=== PATIENT | male | born 1980 | race Caucasian/White ===

== ENCOUNTER 2017-05-15 05:20 | Inpatient (IN) | payer MEDICAID ==
[2017-05-15] MEDS ORDERED: Lactated Ringers 1,000 ML IV SCH (05:30)
[2017-05-15] MEDS ORDERED: Acetaminophen 500 MG Tab PO ONE (05:30)
[2017-05-15] MEDS ORDERED: Gabapentin 300 MG Cap PO ONE (05:30)
[2017-05-15] MEDS ORDERED: Clindamycin Phosphate 900 MG in Sodium Chloride 0.9% 100 ML IV ONE (06:00)
[2017-05-15] MEDS: Scopolamine 1.5 MG Transdermal Patch TOP SCH (06:09)
[2017-05-15] MEDS ORDERED: Thrombin (Bovine) 5,000 Unit Kit ONE (06:33)
[2017-05-15] MEDS ORDERED: Povidone-Iodine 10% Soln 118.25 ML Bottle ONE (06:33)
[2017-05-15] MEDS ORDERED: Dexamethasone 4 MG/ML SDV ONE (07:04)
[2017-05-15] MEDS ORDERED: Propofol 200 MG/20 ML SDV ONE ×3 (07:04→08:33)
[2017-05-15] MEDS ORDERED: Succinylcholine/Normal Saline 200 MG/10 ML Syringe ONE (07:04)
[2017-05-15] MEDS ORDERED: Neostigmine Methylsulfate 1 MG/ML 5 ML Syringe ONE (07:04)
[2017-05-15] MEDS ORDERED: Rocuronium 50 MG/5 ML Vial ONE (07:04)
[2017-05-15] MEDS ORDERED: Ondansetron 4 MG/2 ML SDV ONE (07:04)
[2017-05-15] MEDS ORDERED: Naloxone 0.4 MG/ML SDV IVPUSH PRN (07:29)
[2017-05-15] MEDS ORDERED: Ketamine 500 MG/5 ML MDV IV ONE (07:35)
[2017-05-15] MEDS: HYDROmorphone/Normal Saline 15 MG/30 ML PCA IV PRN (07:42)
[2017-05-15] MEDS ORDERED: fentaNYL 250 MCG/5 ML SDV ONE ×4 (07:46→08:40)
[2017-05-15] MEDS: SODIUM CHLORIDE 0.9% IV SCH ×2 (08:00→10:15)
[2017-05-15] MEDS: TRANEXAMIC ACID IV SCH ×2 (08:00→10:15)
[2017-05-15] MEDS ORDERED: Lactated Ringers 1,000 ML ONE (08:38)
[2017-05-15] MEDS ORDERED: Linezolid 200 MG/100 ML Bag IRR ONE (09:00)
[2017-05-15] MEDS ORDERED: Labetalol 20 MG/4 ML Syringe ONE (09:14)
[2017-05-15] MEDS ORDERED: fentaNYL 100 MCG/2 ML SDV ONE (09:44)
[2017-05-15] MEDS ORDERED: hydrOXYzine HCl 100 MG/2 ML SDV IM PRN (12:31)
[2017-05-15] MEDS: VERIFY SCOP PATCH TOP SCH (13:34)
[2017-05-15] MEDS ORDERED: Gabapentin 300 MG Cap PO SCH (14:00)
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
[2017-05-15] MEDS: Clindamycin Phosphate 900 MG in Sodium Chloride 0.9% 100 ML IV SCH ×2 (15:40→23:50)
[2017-05-15] MEDS: Pantoprazole 40 MG Vial IV SCH (15:41)
[2017-05-15] MEDS: Acetaminophen 500 MG Tab PO SCH ×2 (15:41→19:55)
[2017-05-15] MEDS: Dextrose 5%-Lactated Ringers 1,000 ML IV SCH ×2 (18:12→23:49)
[2017-05-15] MEDS: Nicotine 21 MG/24 Hr Patch TRDERM SCH (19:13)
[2017-05-15] MEDS: Cyclobenzaprine 10 MG Tab PO PRN (22:32)
[2017-05-15] MEDS ORDERED: Topiramate 25 MG Tab ONE ×2 (22:57→23:03)
[2017-05-15] MEDS: Topiramate 100 MG Tab PO SCH (23:00)
[2017-05-16] MEDS: Acetaminophen 500 MG Tab PO SCH ×3 (02:22→13:46)
[2017-05-16] MEDS: HYDROmorphone/Normal Saline 15 MG/30 ML PCA IV PRN (03:48)
[2017-05-16] MEDS: Dextrose 5%-Lactated Ringers 1,000 ML IV SCH ×2 (06:07→15:04)
[2017-05-16] MEDS: Clindamycin Phosphate 900 MG in Sodium Chloride 0.9% 100 ML IV SCH (07:25)
--- NOTE | 2017-05-16 07:59 | PCM.SURGPN ---
- General Info Date of Service: 05/16/17 Date of Surgery/Procedure: 05/15/17 POD#: 1 Post-Op Diagnosis: S/p anterior lumbar interbody fusion Admission Diagnosis/Problem: Spinal stenosis Functional Status: Reports: Pain Controlled Pain Score: 5 - Review of Systems General: Reports: No Symptoms HEENT: Reports: No Symptoms Pulmonary: Reports: No Symptoms Cardiovascular: Reports: No Symptoms Gastrointestinal: Reports: No Symptoms Genitourinary: Reports: No Symptoms Musculoskeletal: Reports: Back Pain Skin: Reports: No Symptoms Neurological: Reports: Other (tingling/burning/shooting pain down both legs ) - Patient Data Vitals - Most Recent: Last Vital Signs Temp 36.4 C 05/16/17 07:13 Pulse 88 05/16/17 07:13 Resp 18 05/16/17 07:13 BP 105/57 L 05/16/17 07:13 Pulse Ox 95 05/16/17 07:13 Weight - Most Recent: 90.718 kg I&O - Last 24 Hours: Intake & Output 05/15/17 05/16/17 05/16/17 22:59 06:59 14:59 Intake Total 273 2709 106 Output Total 1053 1005 Balance -780 1704 106 Lab Results Last 24 Hrs: Laboratory Results - last 24 hr 05/16/17 05/16/17 Range/Units 04:30 04:30 WBC 14.2 H (4.5-11.0) K/uL RBC 4.05 L (4.30-5.90) M/uL Hgb 12.1 D (12.0-15.0) g/dL Hct 36.8 L (40.0-54.0) % MCV 91 (80-98) fL MCH 30 (27-31) pg MCHC 33 (32-36) % Plt Count 169 (150-400) K/uL Sodium 140 (140-148) mmol/L Potassium 4.1 (3.6-5.2) mmol/L Chloride 106 (100-108) mmol/L Carbon Dioxide 26 (21-32) mmol/L Anion Gap 8.5 (5.0-14.0) mmol/L BUN 11 (7-18) mg/dL Creatinine 1.0 (0.8-1.3) mg/dL Est Cr Clr Drug Dosing 104.43 mL/min Estimated GFR (MDRD) > 60 (>60) Glucose 131 H (74-106) mg/dL Calcium 8.9 (8.5-10.1) mg/dL Phosphorus 2.7 (2.5-4.9) mg/dL Magnesium 1.9 (1.8-2.4) mg/dL Med Orders - Current: Current Medications Acetaminophen (Tylenol Extra Strength) 1,000 mg PO Q6H [facility] Last Admin: 05/16/17 02:22 Dose: 1,000 mg Bisacodyl (Dulcolax) 20 mg PO BID [facility] Cyclobenzaprine HCl (Flexeril) 10 mg PO Q6H PRN PRN Reason: MUSCLE SPASM Last Admin: 05/15/17 22:32 Dose: 10 mg Enoxaparin Sodium (Lovenox) 40 mg SUBCUT DAILY [facility] Hydromorphone HCl (Dilaudid) 2 - 4 mg PO Q4H PRN PRN Reason: Pain Hydroxyzine HCl (Vistaril) 100 mg IM Q4H PRN PRN Reason: PAIN Hydroxyzine HCl (Atarax) 100 mg PO Q4H PRN PRN Reason: PAIN Clindamycin Phosphate 900 mg/ (Sodium Chloride) 106 mls @ 212 mls/hr IV Q8H [facility] Stop: 05/16/17 08:29 Last Admin: 05/16/17 07:25 Dose: 212 mls/hr Dextrose/Lactated Ringer's (Dextrose 5%-Lactated Ringers) 1,000 mls @ 100 mls/ hr IV ASDIRECTED [facility] Nicotine (Habitrol) 21 mg TRDERM DAILY [facility] Last Admin: 05/15/17 19:13 Dose: 21 mg Verify Scop Patch 0 each TOP DAILY [facility] Last Admin: 05/15/17 13:34 Dose: Not Given Ondansetron HCl (Zofran) 4 mg IV Q4H PRN PRN Reason: N/V Pantoprazole Sodium (Protonix Iv) 40 mg IV Q24H [facility] Last Admin: 05/15/17 15:41 Dose: 40 mg Scopolamine (Transderm-Scop) 1.5 mg TOP Q72H [facility] Last Admin: 05/15/17 06:09 Dose: 1.5 mg Senna/Docusate Sodium (Senna Plus) 2 tab PO BID [facility] Topiramate (Topamax) 100 mg PO BID [facility] Last Admin: 05/15/17 23:00 Dose: 100 mg Discontinued Medications Acetaminophen (Tylenol Extra Strength) 1,000 mg PO ONETIME ONE Stop: 05/15/17 05:31 Last Admin: 05/15/17 06:09 Dose: 1,000 mg Dexamethasone (Dexamethasone) Confirm Administered Dose 4 mg .ROUTE .STK-MED ONE Stop: 05/15/17 07:05 Fentanyl (Sublimaze) Confirm Administered Dose 250 mcg .ROUTE .STK-MED ONE Stop: 05/15/17 07:47 Fentanyl (Sublimaze) Confirm Administered Dose 250 mcg .ROUTE .STK-MED ONE Stop: 05/15/17 07:50 Fentanyl (Sublimaze) Confirm Administered Dose 250 mcg .ROUTE .STK-MED ONE Stop: 05/15/17 08:11 Fentanyl (Sublimaze) Confirm Administered Dose 250 mcg .ROUTE .STK-MED ONE Stop: 05/15/17 08:41 Fentanyl (Sublimaze) Confirm Administered Dose 100 mcg .ROUTE .STK-MED ONE Stop: 05/15/17 09:45 Gabapentin (Neurontin) 300 mg PO ONETIME ONE Stop: 05/15/17 05:31 Last Admin: 05/15/17 06:09 Dose: 300 mg Gabapentin (Neurontin) 300 mg PO TID [facility] Last Admin: 05/15/17 16:09 Dose: Not Given Glycopyrrolate () Confirm Administered Dose 1 mg .ROUTE .STK-MED ONE Stop: 05/15/17 07:05 Hydromorphone HCl (Dilaudid Filter Worker 15 Mg In Ns 30 Ml) 0 mg IV ASDIRECTED PRN; Protocol PRN Reason: Pain Last Admin: 05/16/17 03:48 Dose: 15 mg Clindamycin Phosphate 900 mg/ (Sodium Chloride) 106 mls @ 212 mls/hr IV ONETIME ONE Stop: 05/15/17 06:29 Last Admin: 05/15/17 08:00 Dose: 212 mls/hr Lactated Ringer's (Ringers, Lactated) 1,000 mls @ 0 mls/hr IV ASDIRECTED [facility] PRN Reason: KVO Last Admin: 05/15/17 06:11 Dose: 25 mls/hr Tranexamic Acid 930 mg/ Sodium (Chloride) 59.3 mls @ 237.2 mls/hr IV Q3H [facility] Stop: 05/15/17 10:49 Last Admin: 05/15/17 10:15 Dose: 237.2 mls/hr Ketamine HCl 100 mg/ Sodium (Chloride) 100 mls @ 21.93 mls/hr IV ASDIRECTED [facility] PRN Reason: 5 MCG/KG/MIN Stop: 05/15/17 09:35 Linezolid (Zyvox) Confirm Administered Dose 100 mls @ as directed .ROUTE .STK- MED ONE Stop: 05/15/17 06:34 Lactated Ringer's (Ringers, Lactated) Confirm Administered Dose 1,000 mls @ as directed .ROUTE .STK-MED ONE Stop: 05/15/17 08:39 Dextrose/Lactated Ringer's (Dextrose 5%-Lactated Ringers) 1,000 mls @ 175 mls/ hr IV ASDIRECTED [facility] Last Admin: 05/16/17 06:07 Dose: 175 mls/hr Ketamine HCl (Ketalar) 36 mg IV ONETIME ONE Stop: 05/15/17 07:36 Last Admin: 05/15/17 13:34 Dose: Not Given Labetalol HCl (Normodyne) Confirm Administered Dose 20 mg .ROUTE .STK-MED ONE Stop: 05/15/17 09:15 Linezolid (Zyvox) 200 mg IRR .STK-MED ONE Stop: 05/15/17 09:01 Last Admin: 05/15/17 09:00 Dose: 200 mg Naloxone HCl (Narcan) 0.1 mg IVPUSH Q5M PRN PRN Reason: Respiratory Distress Neostigmine Methylsulfate (Neostigmine) Confirm Administered Dose 5 mg .ROUTE .STK-MED ONE Stop: 05/15/17 07:05 Ondansetron HCl (Zofran) Confirm Administered Dose 4 mg .ROUTE .STK-MED ONE Stop: 05/15/17 07:05 Povidone Iodine (Betadine 10% Soln) Confirm Administered Dose 1 ml .ROUTE .STK- MED ONE Stop: 05/15/17 06:34 Propofol (Diprivan 20 Ml) Confirm Administered Dose 200 mg .ROUTE .STK-MED ONE Stop: 05/15/17 07:05 Propofol (Diprivan 20 Ml) Confirm Administered Dose 400 mg .ROUTE .STK-MED ONE Stop: 05/15/17 07:50 Propofol (Diprivan 20 Ml) Confirm Administered Dose 400 mg .ROUTE .STK-MED ONE Stop: 05/15/17 08:34 Rocuronium [place] (Zemuron) Confirm Administered Dose 50 mg .ROUTE .STK-MED ONE Stop: 05/15/17 07:05 Succinylcholine Chloride (Succinylcholine In Ns Pf) Confirm Administered Dose 200 mg .ROUTE .STK-MED ONE Stop: 05/15/17 07:05 Thrombin (Thrombin-Jmi) Confirm Administered Dose 15,000 unit .ROUTE .STK-MED ONE Stop: 05/15/17 06:34 Topiramate (Topamax) Confirm Administered Dose 100 mg .ROUTE .STK-MED ONE Stop: 05/15/17 22:58 Last Admin: 05/15/17 23:02 Dose: Not Given Topiramate (Topamax) Confirm Administered Dose 25 mg .ROUTE .STK-MED ONE Stop: 05/15/17 23:04 Last Admin: 05/15/17 23:09 Dose: Not Given - Exam Wound/Incisions: Healing Well General: Alert, Oriented HEENT: Pupils Equal Neck: Supple Lungs: Clear to Auscultation, Normal Respiratory Effort Cardiovascular: Regular Rate, Regular Rhythm GI/Abdominal Exam: Normal Bowel Sounds, Soft, No Distention, No Abnormal Bruit, Guarding, Tender (incision site) Extremities: Normal Inspection, Normal Range of Motion, Non-Tender, No Pedal Edema, Normal Capillary Refill Skin: Warm, Dry, Intact Neurological: No New Focal Deficit, Normal Gait, Normal Speech, Normal Tone Psy/Mental Status: Alert, Normal Affect, Normal Mood - Problem List Review Problem List Initiated/Reviewed/Updated: Yes - My Orders Last 24 Hours: Active Orders 24 hr Category Date Time Status Patient Status [ADT] Routine ADT 05/15/17 10:00 Active Ambulate [RC] QID Care 05/15/17 12:22 Active Communication Order [RC] ROUTINE Care 05/15/17 12:22 Active Communication Order [RC] ROUTINE Care 05/16/17 05:00 Active Drain Management [RC] Q12H Care 05/15/17 12:22 Active Insert Urinary Catheter [OM.PC] Per Unit Routine Care 05/15/17 12:30 Ordered Overnight Pulse Oximetry [RC] Click to Edit Care 05/15/17 12:25 Active RT Incentive Spirometry [RC] ASDIRECTED Care 05/15/17 12:22 Active Turn, Cough, Deep Breathe [RC] Q1HWA Care 05/15/17 14:00 Active Up to Chair [RC] QID Care 05/15/17 12:22 Active OT Evaluation and Treatment [CONS] Routine Cons 05/15/17 18:02 Active PT Evaluation and Treatment [CONS] Routine Cons 05/16/17 12:22 Active Nothing Per Oral Diet [DIET] Diet 05/15/17 Dinner Active Regular Diet [DIET] Diet 05/16/17 Breakfast Active Acetaminophen [Tylenol Extra Strength] Med 05/15/17 14:00 Active 1,000 mg PO Q6H Bisacodyl [Dulcolax] Med 05/16/17 09:00 Active 20 mg PO BID Clindamycin Phosphate [Cleocin] 900 mg Med 05/15/17 16:00 Active Sodium Chloride 0.9% [Normal Saline] 100 ml IV Q8H Cyclobenzaprine [Flexeril] Med 05/15/17 12:31 Active 10 mg PO Q6H PRN Dextrose 5%-Lactated Ringers 1,000 ml Med 05/16/17 07:03 Active IV ASDIRECTED Docusate Sodium/Sennosides [Senna Plus] Med 05/16/17 09:00 Active 2 tab PO BID Enoxaparin [Lovenox] Med 05/16/17 09:00 Active 40 mg SUBCUT DAILY HYDROmorphone [Dilaudid] Med 05/16/17 07:01 Active 2 - 4 mg PO Q4H PRN Nicotine [Habitrol] Med 05/15/17 18:15 Active 21 mg TRDERM DAILY Non-Formulary Medication [NF Drug] Med 05/15/17 14:00 Active 0 each TOP DAILY Ondansetron [Zofran] Med 05/15/17 12:30 Active 4 mg IV Q4H PRN Pantoprazole [ProTONIX IV] Med 05/15/17 14:00 Active 40 mg IV Q24H Topiramate [Topamax] Med 05/15/17 22:45 Active 100 mg PO BID hydrOXYzine HCl [Atarax] Med 05/15/17 12:31 Active 100 mg PO Q4H PRN hydrOXYzine HCl [Vistaril] Med 05/15/17 12:31 Active 100 mg IM Q4H PRN Abdominal Binder [OM.PC] Routine Ot 05/15/17 12:22 Ordered Pulse Oximetry Continuous Monitoring [OM.PC] Routine Oth 05/15/17 12:22 Ordered Sequential Compression Device [OM.PC] Routine Ot 05/15/17 12:22 Ordered Medication Orders Acetaminophen (Tylenol Extra Strength) 1,000 mg PO Q6H [facility] Last Admin: 05/16/17 02:22 Dose: 1,000 mg Admin: 05/15/17 19:55 Dose: 1,000 mg Admin: 05/15/17 15:41 Dose: 1,000 mg Bisacodyl (Dulcolax) 20 mg PO BID [facility] Cyclobenzaprine HCl (Flexeril) 10 mg PO Q6H PRN PRN Reason: MUSCLE SPASM Last Admin: 05/15/17 22:32 Dose: 10 mg Enoxaparin Sodium (Lovenox) 40 mg SUBCUT DAILY [facility] Hydromorphone HCl (Dilaudid) 2 - 4 mg PO Q4H PRN PRN Reason: Pain Hydroxyzine HCl (Vistaril) 100 mg IM Q4H PRN PRN Reason: PAIN Hydroxyzine HCl (Atarax) 100 mg PO Q4H PRN PRN Reason: PAIN Clindamycin Phosphate 900 mg/ (Sodium Chloride) 106 mls @ 212 mls/hr IV Q8H [facility] Stop: 05/16/17 08:29 Last Admin: 05/16/17 07:25 Dose: 212 mls/hr Admin: 05/15/17 23:50 Dose: 212 mls/hr Admin: 05/15/17 15:40 Dose: 212 mls/hr Dextrose/Lactated Ringer's (Dextrose 5%-Lactated Ringers) 1,000 mls @ 100 mls/ hr IV ASDIRECTED [facility] Nicotine (Habitrol) 21 mg TRDERM DAILY [facility] Last Admin: 05/15/17 19:13 Dose: 21 mg Verify Scop Patch 0 each TOP DAILY [facility] Last Admin: 05/15/17 13:34 Dose: Ondansetron HCl (Zofran) 4 mg IV Q4H PRN PRN Reason: N/V Pantoprazole Sodium (Protonix Iv) 40 mg IV Q24H [facility] Last Admin: 05/15/17 15:41 Dose: 40 mg Scopolamine (Transderm-Scop) 1.5 mg TOP Q72H [facility] Last Admin: 05/15/17 06:09 Dose: 1.5 mg Senna/Docusate Sodium (Senna Plus) 2 tab PO BID [facility] Topiramate (Topamax) 100 mg PO BID [facility] Last Admin: 05/15/17 23:00 Dose: 100 mg - Plan Plan (Free Text/Narrative):: Mandeep Teran is a 37 year old with a past medical history of bipolar and migraines and past surgical history of laminectomy with spinal stenosis who is POD #1 from an Anterior Lumbar Interbody fusion. The patient is stable without a fever. He does have a leukocytosis but this is most likely related to his surgery yesterday. He is complaining of some lower back pain which shoots and martinez down both his lower extremities. He states that this pain is similar to the past but better than yesterday. He is also having some abdominal pain at the incision site. He states that when the pain is worst he rates it at a 7/10 and best at a 3/10. Will continue to monitor for signs of infection and progression. He denies any nausea, vomiting, constipation or diarrhea. He did state that he would like to eat. However, he had no further concerns or questions at this time. # Abdominal pain/back pain- related to his surgery. He does feel like he is getting adequate pain control with medications. There no signs of peritonitis. He also denied any nausea or vomiting. Will continue to monitor - Switch to PO Hydromorphone - Continue scheduled tylenol at 1000 mg Q6hr - Continue Flexeril 10mg PO Q6hr - The patient was unable to tolerate gabapentin, D/c this - Continue Clindamycin 212mls/hr Q8hr - Full diet # Leukocytosis- the patient did have a mild leukocytosis at 14.2. He did not have any fever. He is urinating fine without frequncy or urgency. His lungs sound are clear. His incision looks well. This is most likely related to his surgery. - CBC, UA, Urine culture, blood culture and Chest X-ray if pt strikes a fever Chronic issues: # History of Bipolar and migraines - Continue home dose topamax # Nicotine dependence- - 21 mg transdermal patch in place VTE PPX- Pts Paco score is 5, which indicates need for anticoagulant. Lovenox 40 mg. Pt advised to continue moving around. SCD's in bed. Pneumonia PPX- Pt advised to walk around and use incentive spirometry 10 times per hour Code status: Full Fluids: 175 ml/hr Diet: Full diet Nausea: Zofran Q4hr or [place] Q6hr PRN Bowel regimen: Senna plus (2tabs) and Dulcolox 20 mg BID and 40 Protonix daily Dispo: Patient will most likely remain in the hospital for the next day or two pending pain control.
[2017-05-16] MEDS: Bisacodyl 5 MG Tab PO SCH ×2 (08:40→21:34)
[2017-05-16] MEDS: HYDROmorphone 2 MG Tab PO PRN ×4 (08:41→21:58)
[2017-05-16] MEDS: Topiramate 100 MG Tab PO SCH ×2 (08:41→21:34)
[2017-05-16] MEDS: Enoxaparin 40 MG/0.4 ML Syringe SUBCUT SCH (08:41)
[2017-05-16] MEDS: Nicotine 21 MG/24 Hr Patch TRDERM SCH (08:42)
[2017-05-16] MEDS: VERIFY SCOP PATCH TOP SCH (08:50)
[2017-05-16] MEDS: Cyclobenzaprine 10 MG Tab PO PRN ×2 (11:39→17:59)
[2017-05-16] MEDS: Pantoprazole 40 MG Vial IV SCH (13:46)
[2017-05-16] MEDS: hydrOXYzine HCl 25 MG Tab PO PRN (15:09)
[2017-05-16] MEDS: Ondansetron 4 MG/2 ML SDV IV PRN (17:40)
[2017-05-16] MEDS ORDERED: Acetaminophen/oxyCODONE 325-5 MG Tab PO PRN (17:55)
[2017-05-17] MEDS: Cyclobenzaprine 10 MG Tab PO PRN (00:30)
[2017-05-17] MEDS: Dextrose 5%-Lactated Ringers 1,000 ML IV SCH (00:56)
[2017-05-17] MEDS: HYDROmorphone 2 MG Tab PO PRN (05:11)
[2017-05-17] MEDS ORDERED: Sodium Chloride 0.9% 10 ML Syringe IV SCH (08:00)
[2017-05-17] MEDS: Acetaminophen/oxyCODONE 325-10 MG Tab PO PRN ×4 (08:33→21:20)
[2017-05-17] MEDS ORDERED: Acetaminophen/Aspirin/Caffeine 250-250-65 MG Tab PO ONE (08:40)
[2017-05-17] MEDS: Nicotine 21 MG/24 Hr Patch TRDERM SCH (08:54)
[2017-05-17] MEDS: Enoxaparin 40 MG/0.4 ML Syringe SUBCUT SCH (08:56)
[2017-05-17] MEDS ORDERED: fentaNYL 25 MCG/HR Transdermal Patch TRDERM SCH (09:00)
[2017-05-17] MEDS: Celecoxib 200 MG Cap PO SCH (09:01)
[2017-05-17] MEDS: Cyclobenzaprine 10 MG Tab PO SCH ×3 (09:01→21:20)
[2017-05-17] MEDS: Topiramate 100 MG Tab PO SCH ×2 (09:01→21:21)
[2017-05-17] MEDS: Bisacodyl 5 MG Tab PO SCH ×2 (09:01→21:21)
--- NOTE | 2017-05-17 09:03 | PCM.PN ---
- General Info Date of Service: 05/16/17 Admission Dx/Problem (Free Text): Patient is status postop day 1 of alif. He is doing very well. Pain is under control at this time. He has noticed no pain going down his bilateral lower extremities at this time. Functional Status: Reports: Pain Controlled, Tolerating Diet, Ambulating, Urinating - Review of Systems General: Reports: No Symptoms - Patient Data Vitals - Most Recent: Last Vital Signs Temp 38.3 C H 05/17/17 08:36 Pulse 98 05/17/17 08:36 Resp 18 05/17/17 08:36 BP 133/72 05/17/17 08:36 Pulse Ox 93 L 05/17/17 08:36 Weight - Most Recent: 199 lb 15.983 oz I&O - Last 24 Hours: Intake & Output 05/16/17 05/17/17 05/17/17 22:59 06:59 14:59 Intake Total 2289 1525 Output Total 650 0 Balance 1639 1525 Med Orders - Current: Current Medications Bisacodyl (Dulcolax) 20 mg PO BID [facility] Last Admin: 05/17/17 09:01 Dose: 20 mg Celecoxib (Celebrex) 200 mg PO DAILY@0800 [facility] Last Admin: 05/17/17 09:01 Dose: 200 mg Cyclobenzaprine HCl (Flexeril) 10 mg PO Q6H [facility] Last Admin: 05/17/17 09:01 Dose: 10 mg Enoxaparin Sodium (Lovenox) 40 mg SUBCUT DAILY [facility] Last Admin: 05/17/17 08:56 Dose: 40 mg Fentanyl (Duragesic) 25 mcg TRDERM Q72H [facility] Last Admin: 05/17/17 08:55 Dose: 25 mcg Hydroxyzine HCl (Vistaril) 100 mg IM Q4H PRN PRN Reason: PAIN Hydroxyzine HCl (Atarax) 100 mg PO Q4H PRN PRN Reason: PAIN Last Admin: 05/16/17 15:09 Dose: 100 mg Nicotine (Habitrol) 21 mg TRDERM DAILY [facility] Last Admin: 05/17/17 08:54 Dose: 21 mg Verify Scop Patch 0 each TOP DAILY [facility] Last Admin: 05/16/17 08:50 Dose: Not Given Fentanyl Patch Check 1 each TOP BID [facility] Ondansetron HCl (Zofran) 4 mg IV Q4H PRN PRN Reason: N/V Last Admin: 05/16/17 17:40 Dose: 4 mg Oxycodone/Acetaminophen (Percocet 325-10 Mg) 0 tab PO Q4H PRN PRN Reason: PAIN Last Admin: 05/17/17 08:33 Dose: 2 tab Pantoprazole Sodium (Protonix Iv) 40 mg IV Q24H [facility] Last Admin: 05/16/17 13:46 Dose: 40 mg Scopolamine (Transderm-Scop) 1.5 mg TOP Q72H [facility] Last Admin: 05/15/17 06:09 Dose: 1.5 mg Senna/Docusate Sodium (Senna Plus) 2 tab PO BID [facility] Last Admin: 05/17/17 09:00 Dose: 2 tab Sodium Chloride (Saline Flush) 10 ml IV ASDIRECTED [facility] Topiramate (Topamax) 100 mg PO BID [facility] Last Admin: 05/17/17 09:01 Dose: 100 mg Discontinued Medications Acetaminophen (Tylenol Extra Strength) 1,000 mg PO ONETIME ONE Stop: 05/15/17 05:31 Last Admin: 05/15/17 06:09 Dose: 1,000 mg Acetaminophen (Tylenol Extra Strength) 1,000 mg PO Q6H [facility] Last Admin: 05/16/17 13:46 Dose: 1,000 mg Acetaminophen/Aspirin/Caffeine (Excedrin Extra Strength) 2 tab PO ONETIME ONE Stop: 05/17/17 08:41 Last Admin: 05/17/17 08:52 Dose: 2 tab Cyclobenzaprine HCl (Flexeril) 10 mg PO Q6H PRN PRN Reason: MUSCLE SPASM Last Admin: 05/17/17 00:30 Dose: 10 mg Dexamethasone (Dexamethasone) Confirm Administered Dose 4 mg .ROUTE .STK-MED ONE Stop: 05/15/17 07:05 Fentanyl (Sublimaze) Confirm Administered Dose 250 mcg .ROUTE .STK-MED ONE Stop: 05/15/17 07:47 Fentanyl (Sublimaze) Confirm Administered Dose 250 mcg .ROUTE .STK-MED ONE Stop: 05/15/17 07:50 Fentanyl (Sublimaze) Confirm Administered Dose 250 mcg .ROUTE .STK-MED ONE Stop: 05/15/17 08:11 Fentanyl (Sublimaze) Confirm Administered Dose 250 mcg .ROUTE .STK-MED ONE Stop: 05/15/17 08:41 Fentanyl (Sublimaze) Confirm Administered Dose 100 mcg .ROUTE .STK-MED ONE Stop: 05/15/17 09:45 Gabapentin (Neurontin) 300 mg PO ONETIME ONE Stop: 05/15/17 05:31 Last Admin: 05/15/17 06:09 Dose: 300 mg Gabapentin (Neurontin) 300 mg PO TID [facility] Last Admin: 05/15/17 16:09 Dose: Not Given Glycopyrrolate () Confirm Administered Dose 1 mg .ROUTE .STK-MED ONE Stop: 05/15/17 07:05 Hydromorphone HCl (Dilaudid Watch [employer]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 15 Mg In Ns 30 Ml) 0 mg IV ASDIRECTED PRN; Protocol PRN Reason: Pain Last Admin: 05/16/17 03:48 Dose: 15 mg Hydromorphone HCl (Dilaudid) 2 - 4 mg PO Q4H PRN PRN Reason: Pain Last Admin: 05/17/17 05:11 Dose: 4 mg Clindamycin Phosphate 900 mg/ (Sodium Chloride) 106 mls @ 212 mls/hr IV ONETIME ONE Stop: 05/15/17 06:29 Last Admin: 05/15/17 08:00 Dose: 212 mls/hr Lactated Ringer's (Ringers, Lactated) 1,000 mls @ 0 mls/hr IV ASDIRECTED [facility] PRN Reason: KVO Last Admin: 05/15/17 06:11 Dose: 25 mls/hr Tranexamic Acid 930 mg/ Sodium (Chloride) 59.3 mls @ 237.2 mls/hr IV Q3H [facility] Stop: 05/15/17 10:49 Last Admin: 05/15/17 10:15 Dose: 237.2 mls/hr Ketamine HCl 100 mg/ Sodium (Chloride) 100 mls @ 21.93 mls/hr IV ASDIRECTED [facility] PRN Reason: 5 MCG/KG/MIN Stop: 05/15/17 09:35 Linezolid (Zyvox) Confirm Administered Dose 100 mls @ as directed .ROUTE .STK- MED ONE Stop: 05/15/17 06:34 Lactated Ringer's (Ringers, Lactated) Confirm Administered Dose 1,000 mls @ as directed .ROUTE .STK-MED ONE Stop: 05/15/17 08:39 Dextrose/Lactated Ringer's (Dextrose 5%-Lactated Ringers) 1,000 mls @ 175 mls/ hr IV ASDIRECTED [facility] Last Admin: 05/16/17 06:07 Dose: 175 mls/hr Clindamycin Phosphate 900 mg/ (Sodium Chloride) 106 mls @ 212 mls/hr IV Q8H [facility] Stop: 05/16/17 08:29 Last Admin: 05/16/17 07:25 Dose: 212 mls/hr Dextrose/Lactated Ringer's (Dextrose 5%-Lactated Ringers) 1,000 mls @ 100 mls/ hr IV ASDIRECTED [facility] Last Admin: 05/17/17 00:56 Dose: 100 mls/hr Ketamine HCl (Ketalar) 36 mg IV ONETIME ONE Stop: 05/15/17 07:36 Last Admin: 05/15/17 13:34 Dose: Not Given Labetalol HCl (Normodyne) Confirm Administered Dose 20 mg .ROUTE .STK-MED ONE Stop: 05/15/17 09:15 Linezolid (Zyvox) 200 mg IRR .STK-MED ONE Stop: 05/15/17 09:01 Last Admin: 05/15/17 09:00 Dose: 200 mg Naloxone HCl (Narcan) 0.1 mg IVPUSH Q5M PRN PRN Reason: Respiratory Distress Neostigmine Methylsulfate (Neostigmine) Confirm Administered Dose 5 mg .ROUTE .STK-MED ONE Stop: 05/15/17 07:05 Ondansetron HCl (Zofran) Confirm Administered Dose 4 mg .ROUTE .STK-MED ONE Stop: 05/15/17 07:05 Oxycodone/Acetaminophen (Percocet 325-5 Mg) 1 - 2 tab PO Q4H PRN PRN Reason: Pain Last Admin: 05/16/17 18:17 Dose: 2 tab Povidone Iodine (Betadine 10% Soln) Confirm Administered Dose 1 ml .ROUTE .STK- MED ONE Stop: 05/15/17 06:34 Propofol (Diprivan 20 Ml) Confirm Administered Dose 200 mg .ROUTE .STK-MED ONE Stop: 05/15/17 07:05 Propofol (Diprivan 20 Ml) Confirm Administered Dose 400 mg .ROUTE .STK-MED ONE Stop: 05/15/17 07:50 Propofol (Diprivan 20 Ml) Confirm Administered Dose 400 mg .ROUTE .STK-MED ONE Stop: 05/15/17 08:34 Rocuronium [place] (Zemuron) Confirm Administered Dose 50 mg .ROUTE .STK-MED ONE Stop: 05/15/17 07:05 Succinylcholine Chloride (Succinylcholine In Ns Pf) Confirm Administered Dose 200 mg .ROUTE .STK-MED ONE Stop: 05/15/17 07:05 Thrombin (Thrombin-Jmi) Confirm Administered Dose 15,000 unit .ROUTE .STK-MED ONE Stop: 05/15/17 06:34 Topiramate (Topamax) Confirm Administered Dose 100 mg .ROUTE .STK-MED ONE Stop: 05/15/17 22:58 Last Admin: 05/15/17 23:02 Dose: Not Given Topiramate (Topamax) Confirm Administered Dose 25 mg .ROUTE .STK-MED ONE Stop: 05/15/17 23:04 Last Admin: 05/15/17 23:09 Dose: Not Given - Exam General: Alert, Oriented Back Exam: Normal Inspection Extremities: Normal Inspection, Normal Range of Motion Skin: Warm, Dry, Intact Wound/Incisions: Healing Well, Dressing Dry and Intact Neurological: No New Focal Deficit Psy/Mental Status: Alert - Problem List Review Problem List Initiated/Reviewed/Updated: Yes - Plan Plan:: He is doing very well at this time. He will continue to work with PT OT on strengthening. He'll continue to take oral pain medication to control his pain. We will recheck him tomorrow.
--- NOTE | 2017-05-17 09:04 | PCM.PN ---
- General Info Date of Service: 05/17/17 Admission Dx/Problem (Free Text): Patient is status postop day 2 of alif. He is doing okay. At this time patient states that he has a severe headache and is unable to assess his back pain. He has been ambulating over the last 2 days without any difficulties. He has continued to work with PT OT on strengthening. Functional Status: Reports: Pain Controlled, Tolerating Diet, Ambulating, Urinating - Review of Systems General: Reports: No Symptoms HEENT: Reports: Headaches - Patient Data Vitals - Most Recent: Last Vital Signs Temp 38.3 C H 05/17/17 08:36 Pulse 98 05/17/17 08:36 Resp 18 05/17/17 08:36 BP 133/72 05/17/17 08:36 Pulse Ox 93 L 05/17/17 08:36 Weight - Most Recent: 199 lb 15.983 oz I&O - Last 24 Hours: Intake & Output 05/16/17 05/17/17 05/17/17 22:59 06:59 14:59 Intake Total 2289 1525 Output Total 650 0 Balance 1639 1525 Med Orders - Current: Current Medications Bisacodyl (Dulcolax) 20 mg PO BID [facility] Last Admin: 05/17/17 09:01 Dose: 20 mg Celecoxib (Celebrex) 200 mg PO DAILY@0800 [facility] Last Admin: 05/17/17 09:01 Dose: 200 mg Cyclobenzaprine HCl (Flexeril) 10 mg PO Q6H [facility] Last Admin: 05/17/17 09:01 Dose: 10 mg Enoxaparin Sodium (Lovenox) 40 mg SUBCUT DAILY [facility] Last Admin: 05/17/17 08:56 Dose: 40 mg Fentanyl (Duragesic) 25 mcg TRDERM Q72H [facility] Last Admin: 05/17/17 08:55 Dose: 25 mcg Hydroxyzine HCl (Vistaril) 100 mg IM Q4H PRN PRN Reason: PAIN Hydroxyzine HCl (Atarax) 100 mg PO Q4H PRN PRN Reason: PAIN Last Admin: 05/16/17 15:09 Dose: 100 mg Nicotine (Habitrol) 21 mg TRDERM DAILY [facility] Last Admin: 05/17/17 08:54 Dose: 21 mg Verify Scop Patch 0 each TOP DAILY [facility] Last Admin: 05/16/17 08:50 Dose: Not Given Fentanyl Patch Check 1 each TOP BID [facility] Ondansetron HCl (Zofran) 4 mg IV Q4H PRN PRN Reason: N/V Last Admin: 05/16/17 17:40 Dose: 4 mg Oxycodone/Acetaminophen (Percocet 325-10 Mg) 0 tab PO Q4H PRN PRN Reason: PAIN Last Admin: 05/17/17 08:33 Dose: 2 tab Pantoprazole Sodium (Protonix Iv) 40 mg IV Q24H [facility] Last Admin: 05/16/17 13:46 Dose: 40 mg Scopolamine (Transderm-Scop) 1.5 mg TOP Q72H [facility] Last Admin: 05/15/17 06:09 Dose: 1.5 mg Senna/Docusate Sodium (Senna Plus) 2 tab PO BID [facility] Last Admin: 05/17/17 09:00 Dose: 2 tab Sodium Chloride (Saline Flush) 10 ml IV ASDIRECTED [facility] Topiramate (Topamax) 100 mg PO BID [facility] Last Admin: 05/17/17 09:01 Dose: 100 mg Discontinued Medications Acetaminophen (Tylenol Extra Strength) 1,000 mg PO ONETIME ONE Stop: 05/15/17 05:31 Last Admin: 05/15/17 06:09 Dose: 1,000 mg Acetaminophen (Tylenol Extra Strength) 1,000 mg PO Q6H [facility] Last Admin: 05/16/17 13:46 Dose: 1,000 mg Acetaminophen/Aspirin/Caffeine (Excedrin Extra Strength) 2 tab PO ONETIME ONE Stop: 05/17/17 08:41 Last Admin: 05/17/17 08:52 Dose: 2 tab Cyclobenzaprine HCl (Flexeril) 10 mg PO Q6H PRN PRN Reason: MUSCLE SPASM Last Admin: 05/17/17 00:30 Dose: 10 mg Dexamethasone (Dexamethasone) Confirm Administered Dose 4 mg .ROUTE .STK-MED ONE Stop: 05/15/17 07:05 Fentanyl (Sublimaze) Confirm Administered Dose 250 mcg .ROUTE .STK-MED ONE Stop: 05/15/17 07:47 Fentanyl (Sublimaze) Confirm Administered Dose 250 mcg .ROUTE .STK-MED ONE Stop: 05/15/17 07:50 Fentanyl (Sublimaze) Confirm Administered Dose 250 mcg .ROUTE .STK-MED ONE Stop: 05/15/17 08:11 Fentanyl (Sublimaze) Confirm Administered Dose 250 mcg .ROUTE .STK-MED ONE Stop: 05/15/17 08:41 Fentanyl (Sublimaze) Confirm Administered Dose 100 mcg .ROUTE .STK-MED ONE Stop: 05/15/17 09:45 Gabapentin (Neurontin) 300 mg PO ONETIME ONE Stop: 05/15/17 05:31 Last Admin: 05/15/17 06:09 Dose: 300 mg Gabapentin (Neurontin) 300 mg PO TID [facility] Last Admin: 05/15/17 16:09 Dose: Not Given Glycopyrrolate () Confirm Administered Dose 1 mg .ROUTE .STK-MED ONE Stop: 05/15/17 07:05 Hydromorphone HCl (Dilaudid Altitude Chamber Technician 15 Mg In Ns 30 Ml) 0 mg IV ASDIRECTED PRN; Protocol PRN Reason: Pain Last Admin: 05/16/17 03:48 Dose: 15 mg Hydromorphone HCl (Dilaudid) 2 - 4 mg PO Q4H PRN PRN Reason: Pain Last Admin: 05/17/17 05:11 Dose: 4 mg Clindamycin Phosphate 900 mg/ (Sodium Chloride) 106 mls @ 212 mls/hr IV ONETIME ONE Stop: 05/15/17 06:29 Last Admin: 05/15/17 08:00 Dose: 212 mls/hr Lactated Ringer's (Ringers, Lactated) 1,000 mls @ 0 mls/hr IV ASDIRECTED [facility] PRN Reason: KVO Last Admin: 05/15/17 06:11 Dose: 25 mls/hr Tranexamic Acid 930 mg/ Sodium (Chloride) 59.3 mls @ 237.2 mls/hr IV Q3H [facility] Stop: 05/15/17 10:49 Last Admin: 05/15/17 10:15 Dose: 237.2 mls/hr Ketamine HCl 100 mg/ Sodium (Chloride) 100 mls @ 21.93 mls/hr IV ASDIRECTED [facility] PRN Reason: 5 MCG/KG/MIN Stop: 05/15/17 09:35 Linezolid (Zyvox) Confirm Administered Dose 100 mls @ as directed .ROUTE .STK- MED ONE Stop: 05/15/17 06:34 Lactated Ringer's (Ringers, Lactated) Confirm Administered Dose 1,000 mls @ as directed .ROUTE .STK-MED ONE Stop: 05/15/17 08:39 Dextrose/Lactated Ringer's (Dextrose 5%-Lactated Ringers) 1,000 mls @ 175 mls/ hr IV ASDIRECTED [facility] Last Admin: 05/16/17 06:07 Dose: 175 mls/hr Clindamycin Phosphate 900 mg/ (Sodium Chloride) 106 mls @ 212 mls/hr IV Q8H [facility] Stop: 05/16/17 08:29 Last Admin: 05/16/17 07:25 Dose: 212 mls/hr Dextrose/Lactated Ringer's (Dextrose 5%-Lactated Ringers) 1,000 mls @ 100 mls/ hr IV ASDIRECTED [facility] Last Admin: 05/17/17 00:56 Dose: 100 mls/hr Ketamine HCl (Ketalar) 36 mg IV ONETIME ONE Stop: 05/15/17 07:36 Last Admin: 05/15/17 13:34 Dose: Not Given Labetalol HCl (Normodyne) Confirm Administered Dose 20 mg .ROUTE .STK-MED ONE Stop: 05/15/17 09:15 Linezolid (Zyvox) 200 mg IRR .STK-MED ONE Stop: 05/15/17 09:01 Last Admin: 05/15/17 09:00 Dose: 200 mg Naloxone HCl (Narcan) 0.1 mg IVPUSH Q5M PRN PRN Reason: Respiratory Distress Neostigmine Methylsulfate (Neostigmine) Confirm Administered Dose 5 mg .ROUTE .STK-MED ONE Stop: 05/15/17 07:05 Ondansetron HCl (Zofran) Confirm Administered Dose 4 mg .ROUTE .STK-MED ONE Stop: 05/15/17 07:05 Oxycodone/Acetaminophen (Percocet 325-5 Mg) 1 - 2 tab PO Q4H PRN PRN Reason: Pain Last Admin: 05/16/17 18:17 Dose: 2 tab Povidone Iodine (Betadine 10% Soln) Confirm Administered Dose 1 ml .ROUTE .STK- MED ONE Stop: 05/15/17 06:34 Propofol (Diprivan 20 Ml) Confirm Administered Dose 200 mg .ROUTE .STK-MED ONE Stop: 05/15/17 07:05 Propofol (Diprivan 20 Ml) Confirm Administered Dose 400 mg .ROUTE .STK-MED ONE Stop: 05/15/17 07:50 Propofol (Diprivan 20 Ml) Confirm Administered Dose 400 mg .ROUTE .STK-MED ONE Stop: 05/15/17 08:34 Rocuronium [place] (Zemuron) Confirm Administered Dose 50 mg .ROUTE .STK-MED ONE Stop: 05/15/17 07:05 Succinylcholine Chloride (Succinylcholine In Ns Pf) Confirm Administered Dose 200 mg .ROUTE .STK-MED ONE Stop: 05/15/17 07:05 Thrombin (Thrombin-Jmi) Confirm Administered Dose 15,000 unit .ROUTE .STK-MED ONE Stop: 05/15/17 06:34 Topiramate (Topamax) Confirm Administered Dose 100 mg .ROUTE .STK-MED ONE Stop: 05/15/17 22:58 Last Admin: 05/15/17 23:02 Dose: Not Given Topiramate (Topamax) Confirm Administered Dose 25 mg .ROUTE .STK-MED ONE Stop: 05/15/17 23:04 Last Admin: 05/15/17 23:09 Dose: Not Given - Exam General: Alert, Oriented Back Exam: Normal Inspection Extremities: Normal Inspection Skin: Warm, Dry, Intact Wound/Incisions: Healing Well Neurological: No New Focal Deficit Psy/Mental Status: Alert - Problem List Review Problem List Initiated/Reviewed/Updated: Yes - Plan Plan:: At this time I want to get the patient to [facility] to help with his headache. We will check with him later on today to see how he is doing. He will continue to work with PT OT on strengthening. He'll continue to take oral pain medication to control his pain.
[2017-05-17] MEDS: VERIFY SCOP PATCH TOP SCH (09:36)
--- NOTE | 2017-05-17 10:47 | PCM.SURGPN ---
- General Info Date of Service: 05/17/17 Date of Surgery/Procedure: 05/15/17 POD#: 2 Post-Op Diagnosis: S/P anterior lumbar interbody fusion Admission Diagnosis/Problem: Spinal stenosis Functional Status: Reports: Tolerating Diet, Ambulating, Urinating Pain Score: 8 - Review of Systems Pulmonary: Reports: No Symptoms Cardiovascular: Reports: No Symptoms Gastrointestinal: Reports: Abdominal Pain, Other (no constipation, diarrhea, vomiting or nausea ) Genitourinary: Reports: No Symptoms Musculoskeletal: Reports: Back Pain (with shooting burning/tingling pain down both legs (chronic) ) Neurological: Reports: Tingling Psychiatric: Reports: No Symptoms - Patient Data Vitals - Most Recent: Last Vital Signs Temp 38.3 C H 05/17/17 08:36 Pulse 98 05/17/17 08:36 Resp 18 05/17/17 08:36 BP 133/72 05/17/17 08:36 Pulse Ox 93 L 05/17/17 08:36 Weight - Most Recent: 90.718 kg I&O - Last 24 Hours: Intake & Output 05/16/17 05/17/17 05/17/17 22:59 06:59 14:59 Intake Total 2289 1525 Output Total 650 0 Balance 1639 1525 Med Orders - Current: Current Medications Bisacodyl (Dulcolax) 20 mg PO BID [facility] Last Admin: 05/17/17 09:01 Dose: 20 mg Celecoxib (Celebrex) 200 mg PO DAILY@0800 [facility] Last Admin: 05/17/17 09:01 Dose: 200 mg Cyclobenzaprine HCl (Flexeril) 10 mg PO Q6H [facility] Last Admin: 05/17/17 09:01 Dose: 10 mg Enoxaparin Sodium (Lovenox) 40 mg SUBCUT DAILY [facility] Last Admin: 05/17/17 08:56 Dose: 40 mg Fentanyl (Duragesic) 25 mcg TRDERM Q72H [facility] Last Admin: 05/17/17 08:55 Dose: 25 mcg Hydroxyzine HCl (Vistaril) 100 mg IM Q4H PRN PRN Reason: PAIN Hydroxyzine HCl (Atarax) 100 mg PO Q4H PRN PRN Reason: PAIN Last Admin: 05/16/17 15:09 Dose: 100 mg Nicotine (Habitrol) 21 mg TRDERM DAILY [facility] Last Admin: 05/17/17 08:54 Dose: 21 mg Verify Scop Patch 0 each TOP DAILY [facility] Last Admin: 05/17/17 09:36 Dose: Not Given Fentanyl Patch Check 1 each TOP BID [facility] Ondansetron HCl (Zofran) 4 mg IV Q4H PRN PRN Reason: N/V Last Admin: 05/16/17 17:40 Dose: 4 mg Oxycodone/Acetaminophen (Percocet 325-10 Mg) 0 tab PO Q4H PRN PRN Reason: PAIN Last Admin: 05/17/17 08:33 Dose: 2 tab Pantoprazole Sodium (Protonix Iv) 40 mg IV Q24H [facility] Last Admin: 05/16/17 13:46 Dose: 40 mg Scopolamine (Transderm-Scop) 1.5 mg TOP Q72H [facility] Last Admin: 05/15/17 06:09 Dose: 1.5 mg Senna/Docusate Sodium (Senna Plus) 2 tab PO BID [facility] Last Admin: 05/17/17 09:00 Dose: 2 tab Sodium Chloride (Saline Flush) 10 ml IV ASDIRECTED [facility] Topiramate (Topamax) 100 mg PO BID [facility] Last Admin: 05/17/17 09:01 Dose: 100 mg Discontinued Medications Acetaminophen (Tylenol Extra Strength) 1,000 mg PO ONETIME ONE Stop: 05/15/17 05:31 Last Admin: 05/15/17 06:09 Dose: 1,000 mg Acetaminophen (Tylenol Extra Strength) 1,000 mg PO Q6H [facility] Last Admin: 05/16/17 13:46 Dose: 1,000 mg Acetaminophen/Aspirin/Caffeine (Excedrin Extra Strength) 2 tab PO ONETIME ONE Stop: 05/17/17 08:41 Last Admin: 05/17/17 08:52 Dose: 2 tab Cyclobenzaprine HCl (Flexeril) 10 mg PO Q6H PRN PRN Reason: MUSCLE SPASM Last Admin: 05/17/17 00:30 Dose: 10 mg Dexamethasone (Dexamethasone) Confirm Administered Dose 4 mg .ROUTE .STK-MED ONE Stop: 05/15/17 07:05 Fentanyl (Sublimaze) Confirm Administered Dose 250 mcg .ROUTE .STK-MED ONE Stop: 05/15/17 07:47 Fentanyl (Sublimaze) Confirm Administered Dose 250 mcg .ROUTE .STK-MED ONE Stop: 05/15/17 07:50 Fentanyl (Sublimaze) Confirm Administered Dose 250 mcg .ROUTE .STK-MED ONE Stop: 05/15/17 08:11 Fentanyl (Sublimaze) Confirm Administered Dose 250 mcg .ROUTE .STK-MED ONE Stop: 05/15/17 08:41 Fentanyl (Sublimaze) Confirm Administered Dose 100 mcg .ROUTE .STK-MED ONE Stop: 05/15/17 09:45 Gabapentin (Neurontin) 300 mg PO ONETIME ONE Stop: 05/15/17 05:31 Last Admin: 05/15/17 06:09 Dose: 300 mg Gabapentin (Neurontin) 300 mg PO TID [facility] Last Admin: 05/15/17 16:09 Dose: Not Given Glycopyrrolate () Confirm Administered Dose 1 mg .ROUTE .STK-MED ONE Stop: 05/15/17 07:05 Hydromorphone HCl (Dilaudid Physics Instructor 15 Mg In Ns 30 Ml) 0 mg IV ASDIRECTED PRN; Protocol PRN Reason: Pain Last Admin: 05/16/17 03:48 Dose: 15 mg Hydromorphone HCl (Dilaudid) 2 - 4 mg PO Q4H PRN PRN Reason: Pain Last Admin: 05/17/17 05:11 Dose: 4 mg Clindamycin Phosphate 900 mg/ (Sodium Chloride) 106 mls @ 212 mls/hr IV ONETIME ONE Stop: 05/15/17 06:29 Last Admin: 05/15/17 08:00 Dose: 212 mls/hr Lactated Ringer's (Ringers, Lactated) 1,000 mls @ 0 mls/hr IV ASDIRECTED [facility] PRN Reason: KVO Last Admin: 05/15/17 06:11 Dose: 25 mls/hr Tranexamic Acid 930 mg/ Sodium (Chloride) 59.3 mls @ 237.2 mls/hr IV Q3H [facility] Stop: 05/15/17 10:49 Last Admin: 05/15/17 10:15 Dose: 237.2 mls/hr Ketamine HCl 100 mg/ Sodium (Chloride) 100 mls @ 21.93 mls/hr IV ASDIRECTED [facility] PRN Reason: 5 MCG/KG/MIN Stop: 05/15/17 09:35 Linezolid (Zyvox) Confirm Administered Dose 100 mls @ as directed .ROUTE .STK- MED ONE Stop: 05/15/17 06:34 Lactated Ringer's (Ringers, Lactated) Confirm Administered Dose 1,000 mls @ as directed .ROUTE .STK-MED ONE Stop: 05/15/17 08:39 Dextrose/Lactated Ringer's (Dextrose 5%-Lactated Ringers) 1,000 mls @ 175 mls/ hr IV ASDIRECTED [facility] Last Admin: 05/16/17 06:07 Dose: 175 mls/hr Clindamycin Phosphate 900 mg/ (Sodium Chloride) 106 mls @ 212 mls/hr IV Q8H [facility] Stop: 05/16/17 08:29 Last Admin: 05/16/17 07:25 Dose: 212 mls/hr Dextrose/Lactated Ringer's (Dextrose 5%-Lactated Ringers) 1,000 mls @ 100 mls/ hr IV ASDIRECTED [facility] Last Admin: 05/17/17 00:56 Dose: 100 mls/hr Ketamine HCl (Ketalar) 36 mg IV ONETIME ONE Stop: 05/15/17 07:36 Last Admin: 05/15/17 13:34 Dose: Not Given Labetalol HCl (Normodyne) Confirm Administered Dose 20 mg .ROUTE .STK-MED ONE Stop: 05/15/17 09:15 Linezolid (Zyvox) 200 mg IRR .STK-MED ONE Stop: 05/15/17 09:01 Last Admin: 05/15/17 09:00 Dose: 200 mg Naloxone HCl (Narcan) 0.1 mg IVPUSH Q5M PRN PRN Reason: Respiratory Distress Neostigmine Methylsulfate (Neostigmine) Confirm Administered Dose 5 mg .ROUTE .STK-MED ONE Stop: 05/15/17 07:05 Ondansetron HCl (Zofran) Confirm Administered Dose 4 mg .ROUTE .STK-MED ONE Stop: 05/15/17 07:05 Oxycodone/Acetaminophen (Percocet 325-5 Mg) 1 - 2 tab PO Q4H PRN PRN Reason: Pain Last Admin: 05/16/17 18:17 Dose: 2 tab Povidone Iodine (Betadine 10% Soln) Confirm Administered Dose 1 ml .ROUTE .STK- MED ONE Stop: 05/15/17 06:34 Propofol (Diprivan 20 Ml) Confirm Administered Dose 200 mg .ROUTE .STK-MED ONE Stop: 05/15/17 07:05 Propofol (Diprivan 20 Ml) Confirm Administered Dose 400 mg .ROUTE .STK-MED ONE Stop: 05/15/17 07:50 Propofol (Diprivan 20 Ml) Confirm Administered Dose 400 mg .ROUTE .STK-MED ONE Stop: 05/15/17 08:34 Rocuronium [place] (Zemuron) Confirm Administered Dose 50 mg .ROUTE .STK-MED ONE Stop: 05/15/17 07:05 Succinylcholine Chloride (Succinylcholine In Ns Pf) Confirm Administered Dose 200 mg .ROUTE .STK-MED ONE Stop: 05/15/17 07:05 Thrombin (Thrombin-Jmi) Confirm Administered Dose 15,000 unit .ROUTE .STK-MED ONE Stop: 05/15/17 06:34 Topiramate (Topamax) Confirm Administered Dose 100 mg .ROUTE .STK-MED ONE Stop: 05/15/17 22:58 Last Admin: 05/15/17 23:02 Dose: Not Given Topiramate (Topamax) Confirm Administered Dose 25 mg .ROUTE .STK-MED ONE Stop: 05/15/17 23:04 Last Admin: 05/15/17 23:09 Dose: Not Given - Exam Wound/Incisions: Healing Well Quality Assessment: DVT Prophylaxis General: Alert, Oriented Lungs: Clear to Auscultation, Normal Respiratory Effort Cardiovascular: Regular Rate, Regular Rhythm GI/Abdominal Exam: Normal Bowel Sounds, Soft, No Abnormal Bruit, Tender Extremities: Normal Inspection, Normal Range of Motion, Non-Tender, Normal Capillary Refill Skin: Warm, Dry, Intact Neurological: Normal Gait, Strength Equal Bilateral, Reflexes Equal Bilateral, Sensation Intact Psy/Mental Status: Alert, Labile Mood - Problem List Review Problem List Initiated/Reviewed/Updated: Yes - My Orders Last 24 Hours: Active Orders 24 hr Category Date Time Status Communication Order [RC] ASDIRECTED Care 05/17/17 07:32 Active May Shower [RC] ASDIRECTED Care 05/17/17 07:32 Active PT Evaluation and Treatment [CONS] Routine Cons 05/16/17 12:22 Active Acetaminophen/oxyCODONE [Percocet 325-10 MG] Med 05/17/17 07:54 Active 0 tab PO Q4H PRN Celecoxib [CeleBREX] Med 05/17/17 08:00 Active 200 mg PO DAILY@0800 Cyclobenzaprine [Flexeril] Med 05/17/17 10:00 Active 10 mg PO Q6H Non-Formulary Medication [NF Drug] Med 05/17/17 21:00 Active 1 each TOP BID Sodium Chloride 0.9% [Saline Flush] Med 05/17/17 08:00 Active 10 ml IV ASDIRECTED fentaNYL [Duragesic] Med 05/17/17 09:00 Active 25 mcg TRDERM Q72H Convert IV to Saline Lock [OM.PC] Routine Oth 05/17/17 07:32 Ordered Medication Orders Bisacodyl (Dulcolax) 20 mg PO BID [facility] Last Admin: 05/17/17 09:01 Dose: 20 mg Admin: 05/16/17 21:34 Dose: 20 mg Admin: 05/16/17 08:40 Dose: 20 mg Celecoxib (Celebrex) 200 mg PO DAILY@0800 [facility] Last Admin: 05/17/17 09:01 Dose: 200 mg Cyclobenzaprine HCl (Flexeril) 10 mg PO Q6H [facility] Last Admin: 05/17/17 09:01 Dose: 10 mg Enoxaparin Sodium (Lovenox) 40 mg SUBCUT DAILY [facility] Last Admin: 05/17/17 08:56 Dose: 40 mg Admin: 05/16/17 08:41 Dose: 40 mg Fentanyl (Duragesic) 25 mcg TRDERM Q72H [facility] Last Admin: 05/17/17 08:55 Dose: 25 mcg Hydroxyzine HCl (Vistaril) 100 mg IM Q4H PRN PRN Reason: PAIN Hydroxyzine HCl (Atarax) 100 mg PO Q4H PRN PRN Reason: PAIN Last Admin: 05/16/17 15:09 Dose: 100 mg Nicotine (Habitrol) 21 mg TRDERM DAILY [facility] Last Admin: 05/17/17 08:54 Dose: 21 mg Admin: 05/16/17 08:42 Dose: 21 mg Admin: 05/15/17 19:13 Dose: 21 mg Verify Scop Patch 0 each TOP DAILY [facility] Last Admin: 05/17/17 09:36 Dose: Not Given Admin: 05/16/17 08:50 Dose: Not Given Admin: 05/15/17 13:34 Dose: Fentanyl Patch Check 1 each TOP BID [facility] Ondansetron HCl (Zofran) 4 mg IV Q4H PRN PRN Reason: N/V Last Admin: 05/16/17 17:40 Dose: 4 mg Oxycodone/Acetaminophen (Percocet 325-10 Mg) 0 tab PO Q4H PRN PRN Reason: PAIN Last Admin: 05/17/17 08:33 Dose: 2 tab Pantoprazole Sodium (Protonix Iv) 40 mg IV Q24H [facility] Last Admin: 05/16/17 13:46 Dose: 40 mg Admin: 05/15/17 15:41 Dose: 40 mg Scopolamine (Transderm-Scop) 1.5 mg TOP Q72H [facility] Last Admin: 05/15/17 06:09 Dose: 1.5 mg Senna/Docusate Sodium (Senna Plus) 2 tab PO BID [facility] Last Admin: 05/17/17 09:00 Dose: 2 tab Admin: 05/16/17 21:35 Dose: 2 tab Admin: 05/16/17 08:41 Dose: 2 tab Sodium Chloride (Saline Flush) 10 ml IV ASDIRECTED [facility] Topiramate (Topamax) 100 mg PO BID [facility] Last Admin: 05/17/17 09:01 Dose: 100 mg Admin: 05/16/17 21:34 Dose: 100 mg Admin: 05/16/17 08:41 Dose: 100 mg Admin: 05/15/17 23:00 Dose: 100 mg - Plan Plan (Free Text/Narrative):: Mandeep Teran is a 37 year old with a past medical history of bipolar and migraines and past surgical history of laminectomy with spinal stenosis who is POD #2 from an Anterior Lumbar Interbody fusion. The patient is stable without a fever. He is still complaining of some lower back pain, which shoots and martinez down both his lower extremities. He states that this pain is similar to the past but better than yesterday. He is also having some abdominal pain at the incision site. He states that when the pain is worst he rates it at a 7/10 and best at a 3/10. He has been ambulating well. He is eating and drinking without difficulty. He denies any nausea, vomiting, constipation or diarrhea. He did state that he would like to eat. However, he had no further concerns or questions at this time. # Abdominal pain/back pain- related to his surgery. He does feel like he is getting adequate pain control with medications. There no signs of peritonitis. He also denied any nausea or vomiting. His pain seems to respond well to the flexeril, will schedule this. Will continue to monitor - D/c PO Hydromorphone - Add 10-325 percocet Q6hr PRN - Continue scheduled tylenol at 1000 mg Q6hr - Continue Flexeril 10mg PO Q6hr scheduled - The patient was unable to tolerate gabapentin, D/c this - Continue Clindamycin 212mls/hr Q8hr - continue Full diet - PT consulted, appreciate the help Chronic issues: # History of Bipolar and migraines - Continue home dose topamax # Nicotine dependence- - 21 mg transdermal patch in place VTE PPX- Pts Paco score is 5, which indicates need for anticoagulant. Lovenox 40 mg. Pt advised to continue moving around. SCD's in bed. Pneumonia PPX- Pt advised to walk around and use incentive spirometry 10 times per hour Code status: Full Fluids: 175 ml/hr Diet: Full diet Nausea: Zofran Q4hr or [place] Q6hr PRN Bowel regimen: Senna plus (2tabs) and Dulcolox 20 mg BID and 40 Protonix daily Dispo: Patient will most likely remain in the hospital for the next day or two pending pain control.
[2017-05-17] MEDS: Ondansetron 4 MG/2 ML SDV IV PRN ×3 (12:16→21:18)
[2017-05-17] MEDS: Pantoprazole 40 MG Tab.CR PO SCH (15:01)
[2017-05-17] MEDS: FENTANYL PATCH CHECK TOP SCH (21:22)
[2017-05-17] MEDS ORDERED: Naloxone 0.4 MG/ML SDV IVPUSH PRN (22:41)
[2017-05-17] MEDS ORDERED: Sodium Chloride 0.9% 500 ML IV ONE (22:59)
[2017-05-17] MEDS: HYDROmorphone/Normal Saline 15 MG/30 ML PCA IV PRN (23:14)
[2017-05-18] MEDS ORDERED: Metoclopramide 10 MG/2 ML SDV IV PRN (00:48)
[2017-05-18] MEDS ORDERED: Iopamidol 612 MG/ML 150 ML Bottle IV STA (00:57)
[2017-05-18] MEDS: LORazepam 2 MG/ML MDV IVPUSH PRN (01:43)
[2017-05-18] MEDS: Cyclobenzaprine 10 MG Tab PO SCH ×4 (05:21→22:02)
[2017-05-18] MEDS: Scopolamine 1.5 MG Transdermal Patch TOP SCH ×2 (07:09→08:25)
[2017-05-18] MEDS ORDERED: Naloxone 0.4 MG/ML SDV IV PRN (07:13)
[2017-05-18] MEDS: Dextrose 5%-Lactated Ringers 1,000 ML IV SCH ×2 (07:19→17:22)
[2017-05-18] MEDS: Pantoprazole 40 MG Tab.CR PO SCH (08:23)
[2017-05-18] MEDS: Nicotine 21 MG/24 Hr Patch TRDERM SCH (08:24)
[2017-05-18] MEDS: Celecoxib 200 MG Cap PO SCH (08:24)
[2017-05-18] MEDS: Bisacodyl 5 MG Tab PO SCH ×2 (08:26→20:30)
[2017-05-18] MEDS: Enoxaparin 40 MG/0.4 ML Syringe SUBCUT SCH (08:27)
[2017-05-18] MEDS: VERIFY SCOP PATCH TOP SCH (08:28)
[2017-05-18] MEDS: Topiramate 100 MG Tab PO SCH ×2 (08:29→20:30)
[2017-05-18] MEDS: Ondansetron 4 MG/2 ML SDV IV PRN (08:33)
--- NOTE | 2017-05-18 08:38 | US ---
VL Duplex Lwr Ext Veins Comp HISTORY: increased inflammation bilat legs FINDINGS: Deep venous system of the right and left lower extremity demonstrate normal blood flow and compressib ility throughout. Relatively slow venous blood flow is noted in the left calf. Normal Doppler wavefor m variation is seen with respiration and calf compression. No color flow abnormality can be seen. IMPRESSION: No sonographic evidence for DVT in either the right or left lower extremity.
[2017-05-18] MEDS: FENTANYL PATCH CHECK TOP SCH ×2 (08:39→20:26)
--- NOTE | 2017-05-18 08:55 | PCM.PN ---
- General Info Date of Service: 05/18/17 Admission Dx/Problem (Free Text): Patient is pod 3 of an ALIF. He is going well. His pain is under control at this time. - Review of Systems General: Reports: No Symptoms - Patient Data Vitals - Most Recent: Last Vital Signs Temp 36.2 C 05/18/17 07:29 Pulse 95 05/18/17 07:29 Resp 18 05/18/17 07:29 BP 127/82 05/18/17 07:29 Pulse Ox 94 L 05/18/17 07:29 Weight - Most Recent: 199 lb 15.983 oz I&O - Last 24 Hours: Intake & Output 05/17/17 05/18/17 05/18/17 22:59 06:59 14:59 Intake Total 800 936 Output Total 1 Balance 800 935 Med Orders - Current: Current Medications Bisacodyl (Dulcolax) 20 mg PO BID [facility] Last Admin: 05/18/17 08:26 Dose: 20 mg Celecoxib (Celebrex) 200 mg PO DAILY@0800 [facility] Last Admin: 05/18/17 08:24 Dose: 200 mg Cyclobenzaprine HCl (Flexeril) 10 mg PO Q6H [facility] Last Admin: 05/18/17 05:21 Dose: 10 mg Enoxaparin Sodium (Lovenox) 40 mg SUBCUT DAILY [facility] Last Admin: 05/18/17 08:27 Dose: 40 mg Fentanyl (Duragesic) 25 mcg TRDERM Q72H [facility] Last Admin: 05/17/17 08:55 Dose: 25 mcg Hydromorphone HCl (Dilaudid Computer Systems Manager 15 Mg In Ns 30 Ml) 0 mg IV ASDIRECTED PRN; Protocol PRN Reason: Pain Last Admin: 05/17/17 23:14 Dose: 15 mg Hydroxyzine HCl (Vistaril) 100 mg IM Q4H PRN PRN Reason: PAIN Hydroxyzine HCl (Atarax) 100 mg PO Q4H PRN PRN Reason: PAIN Last Admin: 05/16/17 15:09 Dose: 100 mg Sodium Chloride (Normal Saline) 500 mls @ 25 mls/hr IV ONETIME ONE Stop: 05/18/17 18:58 Last Admin: 05/17/17 23:14 Dose: 25 mls/hr Dextrose/Lactated Ringer's (Dextrose 5%-Lactated Ringers) 1,000 mls @ 100 mls/ hr IV ASDIRECTED [facility] Last Admin: 05/18/17 07:19 Dose: 100 mls/hr Lorazepam (Ativan) 0.5 - 1 mg IVPUSH Q2H PRN PRN Reason: Nausea Last Admin: 05/18/17 01:43 Dose: 0.5 mg Metoclopramide HCl (Reglan) 10 mg IV Q6H PRN PRN Reason: Nausea Last Admin: 05/18/17 01:44 Dose: 10 mg Naloxone HCl (Narcan) 0.1 mg IV ASDIRECTED PRN PRN Reason: decreased respiratory rate Nicotine (Habitrol) 21 mg TRDERM DAILY [facility] Last Admin: 05/18/17 08:24 Dose: 21 mg Verify Scop Patch 0 each TOP DAILY [facility] Last Admin: 05/18/17 08:28 Dose: Not Given Fentanyl Patch Check 1 each TOP BID [facility] Last Admin: 05/18/17 08:39 Dose: Not Given Ondansetron HCl (Zofran) 4 mg IV Q4H PRN PRN Reason: N/V Last Admin: 05/18/17 08:33 Dose: 4 mg Oxycodone/Acetaminophen (Percocet 325-10 Mg) 0 tab PO Q4H PRN PRN Reason: PAIN Last Admin: 05/17/17 21:20 Dose: 2 tab Pantoprazole Sodium (Protonix) 40 mg PO ACBREAKFAST [facility] Last Admin: 05/18/17 08:23 Dose: 40 mg Scopolamine (Transderm-Scop) 1.5 mg TOP Q72H [facility] Last Admin: 05/18/17 08:25 Dose: 1.5 mg Senna/Docusate Sodium (Senna Plus) 2 tab PO BID [facility] Last Admin: 05/18/17 08:29 Dose: 2 tab Sodium Chloride (Saline Flush) 10 ml IV ASDIRECTED [facility] Last Admin: 05/18/17 08:26 Dose: 10 ml Topiramate (Topamax) 100 mg PO BID [facility] Last Admin: 05/18/17 08:29 Dose: 100 mg Discontinued Medications Acetaminophen (Tylenol Extra Strength) 1,000 mg PO ONETIME ONE Stop: 05/15/17 05:31 Last Admin: 05/15/17 06:09 Dose: 1,000 mg Acetaminophen (Tylenol Extra Strength) 1,000 mg PO Q6H [facility] Last Admin: 05/16/17 13:46 Dose: 1,000 mg Acetaminophen/Aspirin/Caffeine (Excedrin Extra Strength) 2 tab PO ONETIME ONE Stop: 05/17/17 08:41 Last Admin: 05/17/17 08:52 Dose: 2 tab Cyclobenzaprine HCl (Flexeril) 10 mg PO Q6H PRN PRN Reason: MUSCLE SPASM Last Admin: 05/17/17 00:30 Dose: 10 mg Dexamethasone (Dexamethasone) Confirm Administered Dose 4 mg .ROUTE .STK-MED ONE Stop: 05/15/17 07:05 Fentanyl (Sublimaze) Confirm Administered Dose 250 mcg .ROUTE .STK-MED ONE Stop: 05/15/17 07:47 Fentanyl (Sublimaze) Confirm Administered Dose 250 mcg .ROUTE .STK-MED ONE Stop: 05/15/17 07:50 Fentanyl (Sublimaze) Confirm Administered Dose 250 mcg .ROUTE .STK-MED ONE Stop: 05/15/17 08:11 Fentanyl (Sublimaze) Confirm Administered Dose 250 mcg .ROUTE .STK-MED ONE Stop: 05/15/17 08:41 Fentanyl (Sublimaze) Confirm Administered Dose 100 mcg .ROUTE .STK-MED ONE Stop: 05/15/17 09:45 Gabapentin (Neurontin) 300 mg PO ONETIME ONE Stop: 05/15/17 05:31 Last Admin: 05/15/17 06:09 Dose: 300 mg Gabapentin (Neurontin) 300 mg PO TID [facility] Last Admin: 05/15/17 16:09 Dose: Not Given Glycopyrrolate () Confirm Administered Dose 1 mg .ROUTE .STK-MED ONE Stop: 05/15/17 07:05 Hydromorphone HCl (Dilaudid Computer Systems Manager 15 Mg In Ns 30 Ml) 0 mg IV ASDIRECTED PRN; Protocol PRN Reason: Pain Last Admin: 05/16/17 03:48 Dose: 15 mg Hydromorphone HCl (Dilaudid) 2 - 4 mg PO Q4H PRN PRN Reason: Pain Last Admin: 05/17/17 05:11 Dose: 4 mg Clindamycin Phosphate 900 mg/ (Sodium Chloride) 106 mls @ 212 mls/hr IV ONETIME ONE Stop: 05/15/17 06:29 Last Admin: 05/15/17 08:00 Dose: 212 mls/hr Lactated Ringer's (Ringers, Lactated) 1,000 mls @ 0 mls/hr IV ASDIRECTED [facility] PRN Reason: KVO Last Admin: 05/15/17 06:11 Dose: 25 mls/hr Tranexamic Acid 930 mg/ Sodium (Chloride) 59.3 mls @ 237.2 mls/hr IV Q3H [facility] Stop: 05/15/17 10:49 Last Admin: 05/15/17 10:15 Dose: 237.2 mls/hr Ketamine HCl 100 mg/ Sodium (Chloride) 100 mls @ 21.93 mls/hr IV ASDIRECTED [facility] PRN Reason: 5 MCG/KG/MIN Stop: 05/15/17 09:35 Linezolid (Zyvox) Confirm Administered Dose 100 mls @ as directed .ROUTE .STK- MED ONE Stop: 05/15/17 06:34 Lactated Ringer's (Ringers, Lactated) Confirm Administered Dose 1,000 mls @ as directed .ROUTE .STK-MED ONE Stop: 05/15/17 08:39 Dextrose/Lactated Ringer's (Dextrose 5%-Lactated Ringers) 1,000 mls @ 175 mls/ hr IV ASDIRECTED [facility] Last Admin: 05/16/17 06:07 Dose: 175 mls/hr Clindamycin Phosphate 900 mg/ (Sodium Chloride) 106 mls @ 212 mls/hr IV Q8H [facility] Stop: 05/16/17 08:29 Last Admin: 05/16/17 07:25 Dose: 212 mls/hr Dextrose/Lactated Ringer's (Dextrose 5%-Lactated Ringers) 1,000 mls @ 100 mls/ hr IV ASDIRECTED [facility] Last Admin: 05/17/17 00:56 Dose: 100 mls/hr Sodium Chloride (Normal Saline) 81 mls @ 4 mls/sec IV ASDIRECTED [facility] Stop: 05/18/17 00:59 Last Admin: 05/18/17 01:18 Dose: 4 mls/sec Iopamidol (Isovue-300 (61%)) 135 ml IV . DIRECTED [facility] Stop: 05/18/17 00:58 Last Admin: 05/18/17 01:17 Dose: 150 ml Ketamine HCl (Ketalar) 36 mg IV ONETIME ONE Stop: 05/15/17 07:36 Last Admin: 05/15/17 13:34 Dose: Not Given Labetalol HCl (Normodyne) Confirm Administered Dose 20 mg .ROUTE .STK-MED ONE Stop: 05/15/17 09:15 Linezolid (Zyvox) 200 mg IRR .STK-MED ONE Stop: 05/15/17 09:01 Last Admin: 05/15/17 09:00 Dose: 200 mg Naloxone HCl (Narcan) 0.1 mg IVPUSH Q5M PRN PRN Reason: Respiratory Distress Neostigmine Methylsulfate (Neostigmine) Confirm Administered Dose 5 mg .ROUTE .STK-MED ONE Stop: 05/15/17 07:05 Ondansetron HCl (Zofran) Confirm Administered Dose 4 mg .ROUTE .STK-MED ONE Stop: 05/15/17 07:05 Oxycodone/Acetaminophen (Percocet 325-5 Mg) 1 - 2 tab PO Q4H PRN PRN Reason: Pain Last Admin: 05/16/17 18:17 Dose: 2 tab Pantoprazole Sodium (Protonix Iv) 40 mg IV Q24H [facility] Last Admin: 05/16/17 13:46 Dose: 40 mg Povidone Iodine (Betadine 10% Soln) Confirm Administered Dose 1 ml .ROUTE .STK- MED ONE Stop: 05/15/17 06:34 Propofol (Diprivan 20 Ml) Confirm Administered Dose 200 mg .ROUTE .STK-MED ONE Stop: 05/15/17 07:05 Propofol (Diprivan 20 Ml) Confirm Administered Dose 400 mg .ROUTE .STK-MED ONE Stop: 05/15/17 07:50 Propofol (Diprivan 20 Ml) Confirm Administered Dose 400 mg .ROUTE .STK-MED ONE Stop: 05/15/17 08:34 Rocuronium [place] (Zemuron) Confirm Administered Dose 50 mg .ROUTE .STK-MED ONE Stop: 05/15/17 07:05 Succinylcholine Chloride (Succinylcholine In Ns Pf) Confirm Administered Dose 200 mg .ROUTE .STK-MED ONE Stop: 05/15/17 07:05 Thrombin (Thrombin-Jmi) Confirm Administered Dose 15,000 unit .ROUTE .STK-MED ONE Stop: 05/15/17 06:34 Topiramate (Topamax) Confirm Administered Dose 100 mg .ROUTE .STK-MED ONE Stop: 05/15/17 22:58 Last Admin: 05/15/17 23:02 Dose: Not Given Topiramate (Topamax) Confirm Administered Dose 25 mg .ROUTE .STK-MED ONE Stop: 05/15/17 23:04 Last Admin: 05/15/17 23:09 Dose: Not Given - Exam General: Alert, Oriented Back Exam: Normal Inspection Extremities: Normal Inspection Peripheral Pulses: 2+: Dorsalis Pedis (L), Dorsalis Pedis (R) Skin: Warm, Dry, Intact Wound/Incisions: Healing Well Neurological: No New Focal Deficit Psy/Mental Status: Alert - Problem List Review Problem List Initiated/Reviewed/Updated: Yes - Plan Plan:: Patient will be DCd from ortho today. He will follow up with us in 1 month. He to continue ambulating as much as possible. Pain will be under control with oral pain medication.
--- NOTE | 2017-05-18 10:21 | PCM.SURGPN ---
- General Info Date of Service: 05/18/17 Date of Surgery/Procedure: 05/15/17 POD#: 3 Post-Op Diagnosis: S/P Anterior Lumbar Interbody Fusion Admission Diagnosis/Problem: Spinal stenosis Pain Score: 8 - Review of Systems General: Reports: No Symptoms Pulmonary: Reports: Shortness of Breath, Other Cardiovascular: Reports: No Symptoms Gastrointestinal: Reports: Abdominal Pain, Other (groin pain) Genitourinary: Reports: No Symptoms Musculoskeletal: Reports: Back Pain (shooting and buring pain down bilateral legs ) Skin: Reports: Other (Redness of insides of both thighs, penis and scrotum) Neurological: Reports: No Symptoms Psychiatric: Reports: No Symptoms - Patient Data Vitals - Most Recent: Last Vital Signs Temp 36.2 C 05/18/17 07:29 Pulse 95 05/18/17 07:29 Resp 18 05/18/17 07:29 BP 127/82 05/18/17 07:29 Pulse Ox 94 L 05/18/17 07:29 Weight - Most Recent: 90.718 kg I&O - Last 24 Hours: Intake & Output 05/17/17 05/18/17 05/18/17 22:59 06:59 14:59 Intake Total 800 936 Output Total 1 Balance 800 935 Imaging Impressions - Last 24 Hrs: CT abdomen/pelvis Report from Dr. Ariadne Perez MD 1. Moderate fluid dilation of ascending, transverse and proximal descending colon is present iwh the cecum measiong 9 cm. A moderate amount of stool is present within the rectosigmoid colon with abrupt transition point seen in the distal sigmoid colon on image 126. Further evaluation with barium enema or colonoscopy is recommended to exclude an obstruction colonic stricture. 2. Minimal retroperitoneal fluid is een surround the great vessels of L5-S1 level and extending along the left hemipelvis. This may be due to the small amount of retroperitoneal hematoma related to the recent surgery 3. Segmental consolidation with air bronchogram seen in the posterior basal segment of the right lower lobe. Finding are suspicious for pneumonia. Med Orders - Current: Current Medications Bisacodyl (Dulcolax) 20 mg PO BID [facility] Last Admin: 05/18/17 08:26 Dose: 20 mg Celecoxib (Celebrex) 200 mg PO DAILY@0800 [facility] Last Admin: 05/18/17 08:24 Dose: 200 mg Cyclobenzaprine HCl (Flexeril) 10 mg PO Q6H [facility] Last Admin: 05/18/17 09:28 Dose: 10 mg Enoxaparin Sodium (Lovenox) 40 mg SUBCUT DAILY [facility] Last Admin: 05/18/17 08:27 Dose: 40 mg Fentanyl (Duragesic) 25 mcg TRDERM Q72H [facility] Last Admin: 05/17/17 08:55 Dose: 25 mcg Hydromorphone HCl (Dilaudid Patient Representative 15 Mg In Ns 30 Ml) 0 mg IV ASDIRECTED PRN; Protocol PRN Reason: Pain Last Admin: 05/17/17 23:14 Dose: 15 mg Hydroxyzine HCl (Vistaril) 100 mg IM Q4H PRN PRN Reason: PAIN Hydroxyzine HCl (Atarax) 100 mg PO Q4H PRN PRN Reason: PAIN Last Admin: 05/16/17 15:09 Dose: 100 mg Sodium Chloride (Normal Saline) 500 mls @ 25 mls/hr IV ONETIME ONE Stop: 05/18/17 18:58 Last Admin: 05/17/17 23:14 Dose: 25 mls/hr Dextrose/Lactated Ringer's (Dextrose 5%-Lactated Ringers) 1,000 mls @ 100 mls/ hr IV ASDIRECTED [facility] Last Admin: 05/18/17 07:19 Dose: 100 mls/hr Lorazepam (Ativan) 0.5 - 1 mg IVPUSH Q2H PRN PRN Reason: Nausea Last Admin: 05/18/17 01:43 Dose: 0.5 mg Metoclopramide HCl (Reglan) 10 mg IV Q6H PRN PRN Reason: Nausea Last Admin: 05/18/17 01:44 Dose: 10 mg Naloxone HCl (Narcan) 0.1 mg IV ASDIRECTED PRN PRN Reason: decreased respiratory rate Nicotine (Habitrol) 21 mg TRDERM DAILY [facility] Last Admin: 05/18/17 08:24 Dose: 21 mg Verify Scop Patch 0 each TOP DAILY [facility] Last Admin: 05/18/17 08:28 Dose: Not Given Fentanyl Patch Check 1 each TOP BID [facility] Last Admin: 05/18/17 08:39 Dose: Not Given Ondansetron HCl (Zofran) 4 mg IV Q4H PRN PRN Reason: N/V Last Admin: 05/18/17 08:33 Dose: 4 mg Oxycodone/Acetaminophen (Percocet 325-10 Mg) 0 tab PO Q4H PRN PRN Reason: PAIN Last Admin: 05/17/17 21:20 Dose: 2 tab Pantoprazole Sodium (Protonix) 40 mg PO ACBREAKFAST [facility] Last Admin: 05/18/17 08:23 Dose: 40 mg Scopolamine (Transderm-Scop) 1.5 mg TOP Q72H [facility] Last Admin: 05/18/17 08:25 Dose: 1.5 mg Senna/Docusate Sodium (Senna Plus) 2 tab PO BID [facility] Last Admin: 05/18/17 08:29 Dose: 2 tab Sodium Chloride (Saline Flush) 10 ml IV ASDIRECTED [facility] Last Admin: 05/18/17 08:26 Dose: 10 ml Topiramate (Topamax) 100 mg PO BID [facility] Last Admin: 05/18/17 08:29 Dose: 100 mg Discontinued Medications Acetaminophen (Tylenol Extra Strength) 1,000 mg PO ONETIME ONE Stop: 05/15/17 05:31 Last Admin: 05/15/17 06:09 Dose: 1,000 mg Acetaminophen (Tylenol Extra Strength) 1,000 mg PO Q6H [facility] Last Admin: 05/16/17 13:46 Dose: 1,000 mg Acetaminophen/Aspirin/Caffeine (Excedrin Extra Strength) 2 tab PO ONETIME ONE Stop: 05/17/17 08:41 Last Admin: 05/17/17 08:52 Dose: 2 tab Cyclobenzaprine HCl (Flexeril) 10 mg PO Q6H PRN PRN Reason: MUSCLE SPASM Last Admin: 05/17/17 00:30 Dose: 10 mg Dexamethasone (Dexamethasone) Confirm Administered Dose 4 mg .ROUTE .STK-MED ONE Stop: 05/15/17 07:05 Fentanyl (Sublimaze) Confirm Administered Dose 250 mcg .ROUTE .STK-MED ONE Stop: 05/15/17 07:47 Fentanyl (Sublimaze) Confirm Administered Dose 250 mcg .ROUTE .STK-MED ONE Stop: 05/15/17 07:50 Fentanyl (Sublimaze) Confirm Administered Dose 250 mcg .ROUTE .STK-MED ONE Stop: 05/15/17 08:11 Fentanyl (Sublimaze) Confirm Administered Dose 250 mcg .ROUTE .STK-MED ONE Stop: 05/15/17 08:41 Fentanyl (Sublimaze) Confirm Administered Dose 100 mcg .ROUTE .STK-MED ONE Stop: 05/15/17 09:45 Gabapentin (Neurontin) 300 mg PO ONETIME ONE Stop: 05/15/17 05:31 Last Admin: 05/15/17 06:09 Dose: 300 mg Gabapentin (Neurontin) 300 mg PO TID SAVANNAH Last Admin: 05/15/17 16:09 Dose: Not Given Glycopyrrolate () Confirm Administered Dose 1 mg .ROUTE .STK-MED ONE Stop: 05/15/17 07:05 Hydromorphone HCl (Dilaudid Patient Representative 15 Mg In Ns 30 Ml) 0 mg IV ASDIRECTED PRN; Protocol PRN Reason: Pain Last Admin: 05/16/17 03:48 Dose: 15 mg Hydromorphone HCl (Dilaudid) 2 - 4 mg PO Q4H PRN PRN Reason: Pain Last Admin: 05/17/17 05:11 Dose: 4 mg Clindamycin Phosphate 900 mg/ (Sodium Chloride) 106 mls @ 212 mls/hr IV ONETIME ONE Stop: 05/15/17 06:29 Last Admin: 05/15/17 08:00 Dose: 212 mls/hr Lactated Ringer's (Ringers, Lactated) 1,000 mls @ 0 mls/hr IV ASDIRECTED SAVANNA[facility] PRN Reason: KVO Last Admin: 05/15/17 06:11 Dose: 25 mls/hr Tranexamic Acid 930 mg/ Sodium (Chloride) 59.3 mls @ 237.2 mls/hr IV Q3H [facility] Stop: 05/15/17 10:49 Last Admin: 05/15/17 10:15 Dose: 237.2 mls/hr Ketamine HCl 100 mg/ Sodium (Chloride) 100 mls @ 21.93 mls/hr IV ASDIRECTED SAVANNAH PRN Reason: 5 MCG/KG/MIN Stop: 05/15/17 09:35 Linezolid (Zyvox) Confirm Administered Dose 100 mls @ as directed .ROUTE .STK- MED ONE Stop: 05/15/17 06:34 Lactated Ringer's (Ringers, Lactated) Confirm Administered Dose 1,000 mls @ as directed .ROUTE .STK-MED ONE Stop: 05/15/17 08:39 Dextrose/Lactated Ringer's (Dextrose 5%-Lactated Ringers) 1,000 mls @ 175 mls/ hr IV ASDIRECTED SAV[facility]NAH Last Admin: 05/16/17 06:07 Dose: 175 mls/hr Clindamycin Phosphate 900 mg/ (Sodium Chloride) 106 mls @ 212 mls/hr IV Q8H [facility] Stop: 05/16/17 08:29 Last Admin: 05/16/17 07:25 Dose: 212 mls/hr Dextrose/Lactated Ringer's (Dextrose 5%-Lactated Ringers) 1,000 mls @ 100 mls/ hr IV ASDIRECTED [facility] Last Admin: 05/17/17 00:56 Dose: 100 mls/hr Sodium Chloride (Normal Saline) 81 mls @ 4 mls/sec IV ASDIRECTED STA Stop: 05/18/17 00:59 Last Admin: 05/18/17 01:18 Dose: 4 mls/sec Iopamidol (Isovue-300 (61%)) 135 ml IV . DIRECTED STA Stop: 05/18/17 00:58 Last Admin: 05/18/17 01:17 Dose: 150 ml Ketamine HCl (Ketalar) 36 mg IV ONETIME ONE Stop: 05/15/17 07:36 Last Admin: 05/15/17 13:34 Dose: Not Given Labetalol HCl (Normodyne) Confirm Administered Dose 20 mg .ROUTE .STK-MED ONE Stop: 05/15/17 09:15 Linezolid (Zyvox) 200 mg IRR .STK-MED ONE Stop: 05/15/17 09:01 Last Admin: 05/15/17 09:00 Dose: 200 mg Naloxone HCl (Narcan) 0.1 mg IVPUSH Q5M PRN PRN Reason: Respiratory Distress Neostigmine Methylsulfate (Neostigmine) Confirm Administered Dose 5 mg .ROUTE .STK-MED ONE Stop: 05/15/17 07:05 Ondansetron HCl (Zofran) Confirm Administered Dose 4 mg .ROUTE .STK-MED ONE Stop: 05/15/17 07:05 Oxycodone/Acetaminophen (Percocet 325-5 Mg) 1 - 2 tab PO Q4H PRN PRN Reason: Pain Last Admin: 05/16/17 18:17 Dose: 2 tab Pantoprazole Sodium (Protonix Iv) 40 mg IV Q24H [facility] Last Admin: 05/16/17 13:46 Dose: 40 mg Povidone Iodine (Betadine 10% Soln) Confirm Administered Dose 1 ml .ROUTE .STK- MED ONE Stop: 05/15/17 06:34 Propofol (Diprivan 20 Ml) Confirm Administered Dose 200 mg .ROUTE .STK-MED ONE Stop: 05/15/17 07:05 Propofol (Diprivan 20 Ml) Confirm Administered Dose 400 mg .ROUTE .STK-MED ONE Stop: 05/15/17 07:50 Propofol (Diprivan 20 Ml) Confirm Administered Dose 400 mg .ROUTE .STK-MED ONE Stop: 05/15/17 08:34 Rocuronium Hope (Zemuron) Confirm Administered Dose 50 mg .ROUTE .STK-MED ONE Stop: 05/15/17 07:05 Succinylcholine Chloride (Succinylcholine In Ns Pf) Confirm Administered Dose 200 mg .ROUTE .STK-MED ONE Stop: 05/15/17 07:05 Thrombin (Thrombin-Jmi) Confirm Administered Dose 15,000 unit .ROUTE .STK-MED ONE Stop: 05/15/17 06:34 Topiramate (Topamax) Confirm Administered Dose 100 mg .ROUTE .STK-MED ONE Stop: 05/15/17 22:58 Last Admin: 05/15/17 23:02 Dose: Not Given Topiramate (Topamax) Confirm Administered Dose 25 mg .ROUTE .STK-MED ONE Stop: 05/15/17 23:04 Last Admin: 05/15/17 23:09 Dose: Not Given - Exam Wound/Incisions: Healing Well General: Alert, Oriented, Mild Distress Lungs: Clear to Auscultation, Normal Respiratory Effort Cardiovascular: Regular Rate, Regular Rhythm GI/Abdominal Exam: Normal Bowel Sounds, No Organomegaly, No Mass, Tender Extremities: Pedal Edema, Increased Warmth, Other (bilateral lower extremity swelling ) Skin: Warm, Other (erythema to scrotum and bilateral medial thighs ) Neurological: No New Focal Deficit Psy/Mental Status: Alert, Normal Affect, Normal Mood - Problem List Review Problem List Initiated/Reviewed/Updated: Yes - My Orders Last 24 Hours: Active Orders 24 hr Category Date Time Status Communication Order [RC] STAT Care 05/17/17 22:42 Active Notify Provider [RC] PRN Care 05/17/17 22:42 Active Overnight Pulse Oximetry [RC] Click to Edit Care 05/17/17 14:49 Active INSURANCE CODER Record [RC] PER UNIT ROUTINE Care 05/17/17 22:42 Active Pulse Oximetry [RC] CONTINUOUS Care 05/17/17 22:42 Active NPO [Nothing Per Oral Diet] [DIET] Diet 05/18/17 Breakfast Active Abdomen Pelvis w Cont [CT] Routine Exams 05/18/17 00:47 Taken Cyclobenzaprine [Flexeril] Med 05/17/17 10:00 Active 10 mg PO Q6H Dextrose 5%-Lactated Ringers 1,000 ml Med 05/18/17 07:00 Active IV ASDIRECTED HYDROmorphone/Normal Saline [Dilaudid INSURANCE CODER 15 MG in NS Med 05/17/17 22:41 Active 30 ML] See Protocol IV ASDIRECTED PRN LORazepam [Ativan] Med 05/17/17 23:11 Active 0.5 - 1 mg IVPUSH Q2H PRN Metoclopramide [Reglan] Med 05/18/17 00:48 Active 10 mg IV Q6H PRN Naloxone [Narcan] Med 05/18/17 07:13 Active 0.1 mg IV ASDIRECTED PRN Non-Formulary Medication [NF Drug] Med 05/17/17 21:00 Active 1 each TOP BID Pantoprazole [ProTONIX] Med 05/17/17 14:00 Active 40 mg PO ACBREAKFAST Sodium Chloride 0.9% [Normal Saline] 500 ml Med 05/17/17 22:59 Active IV ONETIME Medication Discontinuation Instructions [OM.PC] Stat Oth 05/17/17 22:42 Ordered Pulse Oximetry Continuous Monitoring [OM.PC] Routine Oth 05/17/17 14:49 Ordered Scrotal Support [OM.PC] Routine Oth 05/18/17 06:59 Ordered Medication Orders Bisacodyl (Dulcolax) 20 mg PO BID [facility] Last Admin: 05/18/17 08:26 Dose: 20 mg Admin: 05/17/17 21:21 Dose: 20 mg Admin: 05/17/17 09:01 Dose: 20 mg Admin: 05/16/17 21:34 Dose: 20 mg Admin: 05/16/17 08:40 Dose: 20 mg Celecoxib (Celebrex) 200 mg PO DAILY@0800 [facility] Last Admin: 05/18/17 08:24 Dose: 200 mg Admin: 05/17/17 09:01 Dose: 200 mg Cyclobenzaprine HCl (Flexeril) 10 mg PO Q6H [facility] Last Admin: 05/18/17 09:28 Dose: 10 mg Admin: 05/18/17 05:21 Dose: 10 mg Admin: 05/17/17 21:20 Dose: 10 mg Admin: 05/17/17 15:00 Dose: 10 mg Admin: 05/17/17 09:01 Dose: 10 mg Enoxaparin Sodium (Lovenox) 40 mg SUBCUT DAILY [facility] Last Admin: 05/18/17 08:27 Dose: 40 mg Admin: 05/17/17 08:56 Dose: 40 mg Admin: 05/16/17 08:41 Dose: 40 mg Fentanyl (Duragesic) 25 mcg TRDERM Q72H [facility] Last Admin: 05/17/17 08:55 Dose: 25 mcg Hydromorphone HCl (Dilaudid Patient Representative 15 Mg In Ns 30 Ml) 0 mg IV ASDIRECTED PRN; Protocol PRN Reason: Pain Last Admin: 05/17/17 23:14 Dose: 15 mg Hydroxyzine HCl (Vistaril) 100 mg IM Q4H PRN PRN Reason: PAIN Hydroxyzine HCl (Atarax) 100 mg PO Q4H PRN PRN Reason: PAIN Last Admin: 05/16/17 15:09 Dose: 100 mg Sodium Chloride (Normal Saline) 500 mls @ 25 mls/hr IV ONETIME ONE Stop: 05/18/17 18:58 Last Admin: 05/17/17 23:14 Dose: 25 mls/hr Dextrose/Lactated Ringer's (Dextrose 5%-Lactated Ringers) 1,000 mls @ 100 mls/ hr IV ASDIRECTED [facility] Last Admin: 05/18/17 07:19 Dose: 100 mls/hr Lorazepam (Ativan) 0.5 - 1 mg IVPUSH Q2H PRN PRN Reason: Nausea Last Admin: 05/18/17 01:43 Dose: 0.5 mg Metoclopramide HCl (Reglan) 10 mg IV Q6H PRN PRN Reason: Nausea Last Admin: 05/18/17 01:44 Dose: 10 mg Naloxone HCl (Narcan) 0.1 mg IV ASDIRECTED PRN PRN Reason: decreased respiratory rate Nicotine (Habitrol) 21 mg TRDERM DAILY [facility] Last Admin: 05/18/17 08:24 Dose: 21 mg Admin: 05/17/17 08:54 Dose: 21 mg Admin: 05/16/17 08:42 Dose: 21 mg Admin: 05/15/17 19:13 Dose: 21 mg Verify Scop Patch 0 each TOP DAILY [facility] Last Admin: 05/18/17 08:28 Dose: Not Given Admin: 05/17/17 09:36 Dose: Not Given Admin: 05/16/17 08:50 Dose: Not Given Admin: 05/15/17 13:34 Dose: Fentanyl Patch Check 1 each TOP BID [facility] Last Admin: 05/18/17 08:39 Dose: Admin: 05/17/17 21:22 Dose: Ondansetron HCl (Zofran) 4 mg IV Q4H PRN PRN Reason: N/V Last Admin: 05/18/17 08:33 Dose: 4 mg Admin: 05/17/17 21:18 Dose: 4 mg Admin: 05/17/17 17:15 Dose: 4 mg Admin: 05/17/17 12:16 Dose: 4 mg Admin: 05/16/17 17:40 Dose: 4 mg Oxycodone/Acetaminophen (Percocet 325-10 Mg) 0 tab PO Q4H PRN PRN Reason: PAIN Last Admin: 05/17/17 21:20 Dose: 2 tab Admin: 05/17/17 17:11 Dose: 2 tab Admin: 05/17/17 12:34 Dose: 2 tab Admin: 05/17/17 08:33 Dose: 2 tab Pantoprazole Sodium (Protonix) 40 mg PO ACBREAKFAST [facility] Last Admin: 05/18/17 08:23 Dose: 40 mg Admin: 05/17/17 15:01 Dose: 40 mg Scopolamine (Transderm-Scop) 1.5 mg TOP Q72H [facility] Last Admin: 05/18/17 08:25 Dose: 1.5 mg Admin: 05/18/17 07:09 Dose: Not Given Admin: 05/15/17 06:09 Dose: 1.5 mg Senna/Docusate Sodium (Senna Plus) 2 tab PO BID [facility] Last Admin: 05/18/17 08:29 Dose: 2 tab Admin: 05/17/17 21:20 Dose: 2 tab Admin: 05/17/17 09:00 Dose: 2 tab Admin: 05/16/17 21:35 Dose: 2 tab Admin: 05/16/17 08:41 Dose: 2 tab Sodium Chloride (Saline Flush) 10 ml IV ASDIRECTED [facility] Last Admin: 05/18/17 08:26 Dose: 10 ml Topiramate (Topamax) 100 mg PO BID [facility] Last Admin: 05/18/17 08:29 Dose: 100 mg Admin: 05/17/17 21:21 Dose: 100 mg Admin: 05/17/17 09:01 Dose: 100 mg Admin: 05/16/17 21:34 Dose: 100 mg Admin: 05/16/17 08:41 Dose: 100 mg Admin: 05/15/17 23:00 Dose: 100 mg - Plan Plan (Free Text/Narrative):: Mandeep Teran is a 37 year old with a past medical history of bipolar and migraines and past surgical history of laminectomy with spinal stenosis who is POD #2 from an Anterior Lumbar Interbody fusion. The patient is stable without a fever. He is still complaining of some lower back pain, which shoots and martinez down both his lower extremities. He states that this pain is similar to the past but better than yesterday. The patient had a rough night. He was in considerable pain and found to have bilateeral lower extremity swelling. His scrotum and penis were also swollen. A bilateral lower extremity doppler was performed which was benign. There is no concern for DVT at this time. A CT abdomen was also performed which showed large amounts of stool in the colon. The most likely cause of his pain is ileus and obstipation. He had no further concerns or questions at this time. # Abdominal pain/back pain- related to his surgery. He does feel like he is getting adequate pain control with medications. There no signs of peritonitis. He also denied any nausea or vomiting. His pain seems to respond well to the flexeril, will schedule this. Will continue to monitor - put patient back on INSURANCE CODER hydromorphone - Fentenyl patch added - Add 10-325 percocet Q6hr PRN - Continue scheduled tylenol at 1000 mg Q6hr - Continue Flexeril 10mg PO Q6hr scheduled - The patient was unable to tolerate gabapentin, D/c this - Continue Clindamycin 212mls/hr Q8hr - D/c Full diet - PT consulted, appreciate the help Chronic issues: # History of Bipolar and migraines - Continue home dose topamax # Nicotine dependence- - 21 mg transdermal patch in place VTE PPX- Pts Paco score is 5, which indicates need for anticoagulant. Lovenox 40 mg. Pt advised to continue moving around. SCD's in bed. Pneumonia PPX- Pt advised to walk around and use incentive spirometry 10 times per hour Code status: Full Fluids: 125 ml/hr Diet: Sips of water per mouth Nausea: Zofran Q4hr or [place] Q6hr PRN Bowel regimen: Senna plus (2tabs) and Dulcolox 20 mg BID and 40 Protonix daily Dispo: Patient will most likely remain in the hospital for the next day or two pending pain control.
--- NOTE | 2017-05-18 12:31 | US ---
VL Duplex Abd Pel Ret Ltd HISTORY: peripheral edema r/o thrombosis FINDINGS: Proximal to midportion of the inferior vena cava appear patent with normal color Doppler bl ood flow. The distal IVC and bifurcation are obscured by bowel gas and could not be imaged. Right common iliac and external iliac veins appear patent. No thrombus is identified. Visualized port ions of the left common iliac and external iliac veins also appear patent. The most proximal aspect o f the left iliac vein distal to the bifurcation cannot be well visualized. There is also limited visu alization of the proximal left common iliac vein on the CT study of 05/18/2017 due to beam hardening a rtifact from the patient's intervertebral body fusion hardware at L5-S1. IMPRESSION: The visualized portions of the IVC and bilateral iliac veins appear patent. Distal IVC, i liac bifurcation, and left common iliac vein distal to the bifurcation are not well visualized due to bowel gas.
[2017-05-18] MEDS ORDERED: Lactated Ringers 500 ML IV SCH (16:00)
[2017-05-18] MEDS: HYDROmorphone/Normal Saline 15 MG/30 ML PCA IV PRN (17:31)
[2017-05-18] MEDS: hydrOXYzine HCl 25 MG Tab PO PRN (20:35)
[2017-05-19] MEDS: Dextrose 5%-Lactated Ringers 1,000 ML IV SCH (03:24)
[2017-05-19] MEDS: Cyclobenzaprine 10 MG Tab PO SCH ×4 (03:24→21:17)
--- NOTE | 2017-05-19 07:20 | PCM.SURGPN ---
- General Info Date of Service: 05/19/17 Date of Surgery/Procedure: 05/15/17 POD#: 4 Post-Op Diagnosis: S/P ALIF Admission Diagnosis/Problem: Spinal stenosis Functional Status: Reports: Pain Controlled (mildly controlled ), Ambulating, Urinating - Review of Systems General: Reports: No Symptoms Pulmonary: Reports: No Symptoms Cardiovascular: Reports: No Symptoms Gastrointestinal: Reports: Abdominal Pain Genitourinary: Reports: Other (one episode of stool incontinence last evening. Having slight troubles urinating ) Musculoskeletal: Reports: Back Pain Skin: Reports: Other (lacy red rash, starts at abdomen and travels to mid-thigh) Neurological: Reports: No Symptoms Psychiatric: Reports: No Symptoms - Patient Data Vitals - Most Recent: Last Vital Signs Temp 36.4 C 05/19/17 07:00 Pulse 87 05/19/17 07:00 Resp 18 05/19/17 07:00 BP 124/71 05/19/17 07:00 Pulse Ox 94 L 05/19/17 07:00 Weight - Most Recent: 90.718 kg I&O - Last 24 Hours: Intake & Output 05/18/17 05/19/17 05/19/17 22:59 06:59 14:59 Intake Total 1571 1431 Output Total 205 250 Balance 1366 1181 Lab Results Last 24 Hrs: Laboratory Results - last 24 hr 05/15/17 05/19/17 05/19/17 Range/Units 05:57 05:03 05:03 WBC 7.5 (4.5-11.0) K/uL RBC 3.89 L (4.30-5.90) M/uL Hgb 11.6 L (12.0-15.0) g/dL Hct 34.5 L (40.0-54.0) % MCV 89 (80-98) fL MCH 30 (27-31) pg MCHC 34 (32-36) % Plt Count 175 (150-400) K/uL Sodium 139 L (140-148) mmol/L Potassium 3.3 L (3.6-5.2) mmol/L Chloride 106 (100-108) mmol/L Carbon Dioxide 24 (21-32) mmol/L Anion Gap 12.3 (5.0-14.0) mmol/L BUN 11 (7-18) mg/dL Creatinine 0.9 (0.8-1.3) mg/dL Est Cr Clr Drug Dosing 116.32 mL/min Estimated GFR (MDRD) > 60 (>60) Glucose 105 (74-106) mg/dL Calcium 9.1 (8.5-10.1) mg/dL Phosphorus 2.8 (2.5-4.9) mg/dL Magnesium 1.9 (1.8-2.4) mg/dL Total Bilirubin 0.6 (0.2-1.0) mg/dL AST 75 H D (15-37) U/L ALT 96 H (12-78) U/L Alkaline Phosphatase 74 (46-116) U/L Total Protein 5.7 L (6.4-8.2) g/dL Albumin 2.7 L (3.4-5.0) g/dL Globulin 3.0 (2.3-3.5) g/dL Albumin/Globulin Ratio 0.9 L (1.2-2.2) Crossmatch See Detail Med Orders - Current: Current Medications Bisacodyl (Dulcolax) 20 mg PO BID [facility] Last Admin: 05/18/17 20:30 Dose: 20 mg Celecoxib (Celebrex) 200 mg PO DAILY@0800 [facility] Last Admin: 05/18/17 08:24 Dose: 200 mg Cyclobenzaprine HCl (Flexeril) 10 mg PO Q6H [facility] Last Admin: 05/19/17 03:24 Dose: 10 mg Enoxaparin Sodium (Lovenox) 40 mg SUBCUT DAILY [facility] Last Admin: 05/18/17 08:27 Dose: 40 mg Fentanyl (Duragesic) 25 mcg TRDERM Q72H [facility] Last Admin: 05/17/17 08:55 Dose: 25 mcg Hydromorphone HCl (Dilaudid Catcher Helper 15 Mg In Ns 30 Ml) 0 mg IV ASDIRECTED PRN; Protocol PRN Reason: Pain Last Admin: 05/18/17 17:31 Dose: 15 mg Hydroxyzine HCl (Vistaril) 100 mg IM Q4H PRN PRN Reason: PAIN Hydroxyzine HCl (Atarax) 100 mg PO Q4H PRN PRN Reason: PAIN Last Admin: 05/18/17 20:35 Dose: 100 mg Dextrose/Lactated Ringer's (Dextrose 5%-Lactated Ringers) 1,000 mls @ 100 mls/ hr IV ASDIRECTED [facility] Last Admin: 05/19/17 03:24 Dose: 100 mls/hr Lactated Ringer's (Ringers, Lactated) 500 mls @ 500 mls/hr IV .BOLUS [facility] Last Admin: 05/18/17 16:18 Dose: 500 mls/hr Lorazepam (Ativan) 0.5 - 1 mg IVPUSH Q2H PRN PRN Reason: Nausea Last Admin: 05/18/17 01:43 Dose: 0.5 mg Metoclopramide HCl (Reglan) 10 mg IV Q6H PRN PRN Reason: Nausea Last Admin: 05/18/17 01:44 Dose: 10 mg Naloxone HCl (Narcan) 0.1 mg IV ASDIRECTED PRN PRN Reason: decreased respiratory rate Nicotine (Habitrol) 21 mg TRDERM DAILY [facility] Last Admin: 05/18/17 08:24 Dose: 21 mg Verify Scop Patch 0 each TOP DAILY [facility] Last Admin: 05/18/17 08:28 Dose: Not Given Fentanyl Patch Check 1 each TOP BID [facility] Last Admin: 05/18/17 20:26 Dose: Not Given Ondansetron HCl (Zofran) 4 mg IV Q4H PRN PRN Reason: N/V Last Admin: 05/18/17 08:33 Dose: 4 mg Oxycodone/Acetaminophen (Percocet 325-10 Mg) 0 tab PO Q4H PRN PRN Reason: PAIN Last Admin: 05/17/17 21:20 Dose: 2 tab Pantoprazole Sodium (Protonix) 40 mg PO ACBREAKFAST [facility] Last Admin: 05/18/17 08:23 Dose: 40 mg Scopolamine (Transderm-Scop) 1.5 mg TOP Q72H [facility] Last Admin: 05/18/17 08:25 Dose: 1.5 mg Senna/Docusate Sodium (Senna Plus) 2 tab PO BID [facility] Last Admin: 05/18/17 20:30 Dose: 2 tab Sodium Chloride (Saline Flush) 10 ml IV ASDIRECTED [facility] Last Admin: 05/18/17 08:26 Dose: 10 ml Topiramate (Topamax) 100 mg PO BID [facility] Last Admin: 05/18/17 20:30 Dose: 100 mg Discontinued Medications Acetaminophen (Tylenol Extra Strength) 1,000 mg PO ONETIME ONE Stop: 05/15/17 05:31 Last Admin: 05/15/17 06:09 Dose: 1,000 mg Acetaminophen (Tylenol Extra Strength) 1,000 mg PO Q6H [facility] Last Admin: 05/16/17 13:46 Dose: 1,000 mg Acetaminophen/Aspirin/Caffeine (Excedrin Extra Strength) 2 tab PO ONETIME ONE Stop: 05/17/17 08:41 Last Admin: 05/17/17 08:52 Dose: 2 tab Cyclobenzaprine HCl (Flexeril) 10 mg PO Q6H PRN PRN Reason: MUSCLE SPASM Last Admin: 05/17/17 00:30 Dose: 10 mg Dexamethasone (Dexamethasone) Confirm Administered Dose 4 mg .ROUTE .STK-MED ONE Stop: 05/15/17 07:05 Fentanyl (Sublimaze) Confirm Administered Dose 250 mcg .ROUTE .STK-MED ONE Stop: 05/15/17 07:47 Fentanyl (Sublimaze) Confirm Administered Dose 250 mcg .ROUTE .STK-MED ONE Stop: 05/15/17 07:50 Fentanyl (Sublimaze) Confirm Administered Dose 250 mcg .ROUTE .STK-MED ONE Stop: 05/15/17 08:11 Fentanyl (Sublimaze) Confirm Administered Dose 250 mcg .ROUTE .STK-MED ONE Stop: 05/15/17 08:41 Fentanyl (Sublimaze) Confirm Administered Dose 100 mcg .ROUTE .STK-MED ONE Stop: 05/15/17 09:45 Gabapentin (Neurontin) 300 mg PO ONETIME ONE Stop: 05/15/17 05:31 Last Admin: 05/15/17 06:09 Dose: 300 mg Gabapentin (Neurontin) 300 mg PO TID [facility] Last Admin: 05/15/17 16:09 Dose: Not Given Glycopyrrolate () Confirm Administered Dose 1 mg .ROUTE .STK-MED ONE Stop: 05/15/17 07:05 Hydromorphone HCl (Dilaudid Catcher Helper 15 Mg In Ns 30 Ml) 0 mg IV ASDIRECTED PRN; Protocol PRN Reason: Pain Last Admin: 05/16/17 03:48 Dose: 15 mg Hydromorphone HCl (Dilaudid) 2 - 4 mg PO Q4H PRN PRN Reason: Pain Last Admin: 05/17/17 05:11 Dose: 4 mg Clindamycin Phosphate 900 mg/ (Sodium Chloride) 106 mls @ 212 mls/hr IV ONETIME ONE Stop: 05/15/17 06:29 Last Admin: 05/15/17 08:00 Dose: 212 mls/hr Lactated Ringer's (Ringers, Lactated) 1,000 mls @ 0 mls/hr IV ASDIRECTED [facility] PRN Reason: KVO Last Admin: 05/15/17 06:11 Dose: 25 mls/hr Tranexamic Acid 930 mg/ Sodium (Chloride) 59.3 mls @ 237.2 mls/hr IV Q3H [facility] Stop: 05/15/17 10:49 Last Admin: 05/15/17 10:15 Dose: 237.2 mls/hr Ketamine HCl 100 mg/ Sodium (Chloride) 100 mls @ 21.93 mls/hr IV ASDIRECTED [facility] PRN Reason: 5 MCG/KG/MIN Stop: 05/15/17 09:35 Linezolid (Zyvox) Confirm Administered Dose 100 mls @ as directed .ROUTE .STK- MED ONE Stop: 05/15/17 06:34 Lactated Ringer's (Ringers, Lactated) Confirm Administered Dose 1,000 mls @ as directed .ROUTE .STK-MED ONE Stop: 05/15/17 08:39 Dextrose/Lactated Ringer's (Dextrose 5%-Lactated Ringers) 1,000 mls @ 175 mls/ hr IV ASDIRECTED [facility] Last Admin: 05/16/17 06:07 Dose: 175 mls/hr Clindamycin Phosphate 900 mg/ (Sodium Chloride) 106 mls @ 212 mls/hr IV Q8H [facility] Stop: 05/16/17 08:29 Last Admin: 05/16/17 07:25 Dose: 212 mls/hr Dextrose/Lactated Ringer's (Dextrose 5%-Lactated Ringers) 1,000 mls @ 100 mls/ hr IV ASDIRECTED [facility] Last Admin: 05/17/17 00:56 Dose: 100 mls/hr Sodium Chloride (Normal Saline) 500 mls @ 25 mls/hr IV ONETIME ONE Stop: 05/18/17 18:58 Last Admin: 05/17/17 23:14 Dose: 25 mls/hr Sodium Chloride (Normal Saline) 81 mls @ 4 mls/sec IV ASDIRECTED [facility] Stop: 05/18/17 00:59 Last Admin: 05/18/17 01:18 Dose: 4 mls/sec Iopamidol (Isovue-300 (61%)) 135 ml IV . DIRECTED [facility] Stop: 05/18/17 00:58 Last Admin: 05/18/17 01:17 Dose: 150 ml Ketamine HCl (Ketalar) 36 mg IV ONETIME ONE Stop: 05/15/17 07:36 Last Admin: 05/15/17 13:34 Dose: Not Given Labetalol HCl (Normodyne) Confirm Administered Dose 20 mg .ROUTE .STK-MED ONE Stop: 05/15/17 09:15 Linezolid (Zyvox) 200 mg IRR .STK-MED ONE Stop: 05/15/17 09:01 Last Admin: 05/15/17 09:00 Dose: 200 mg Naloxone HCl (Narcan) 0.1 mg IVPUSH Q5M PRN PRN Reason: Respiratory Distress Neostigmine Methylsulfate (Neostigmine) Confirm Administered Dose 5 mg .ROUTE .STK-MED ONE Stop: 05/15/17 07:05 Ondansetron HCl (Zofran) Confirm Administered Dose 4 mg .ROUTE .STK-MED ONE Stop: 05/15/17 07:05 Oxycodone/Acetaminophen (Percocet 325-5 Mg) 1 - 2 tab PO Q4H PRN PRN Reason: Pain Last Admin: 05/16/17 18:17 Dose: 2 tab Pantoprazole Sodium (Protonix Iv) 40 mg IV Q24H [facility] Last Admin: 05/16/17 13:46 Dose: 40 mg Povidone Iodine (Betadine 10% Soln) Confirm Administered Dose 1 ml .ROUTE .STK- MED ONE Stop: 05/15/17 06:34 Propofol (Diprivan 20 Ml) Confirm Administered Dose 200 mg .ROUTE .STK-MED ONE Stop: 05/15/17 07:05 Propofol (Diprivan 20 Ml) Confirm Administered Dose 400 mg .ROUTE .STK-MED ONE Stop: 05/15/17 07:50 Propofol (Diprivan 20 Ml) Confirm Administered Dose 400 mg .ROUTE .STK-MED ONE Stop: 05/15/17 08:34 Rocuronium [place] (Zemuron) Confirm Administered Dose 50 mg .ROUTE .STK-MED ONE Stop: 05/15/17 07:05 Succinylcholine Chloride (Succinylcholine In Ns Pf) Confirm Administered Dose 200 mg .ROUTE .STK-MED ONE Stop: 05/15/17 07:05 Thrombin (Thrombin-Jmi) Confirm Administered Dose 15,000 unit .ROUTE .STK-MED ONE Stop: 05/15/17 06:34 Topiramate (Topamax) Confirm Administered Dose 100 mg .ROUTE .STK-MED ONE Stop: 05/15/17 22:58 Last Admin: 05/15/17 23:02 Dose: Not Given Topiramate (Topamax) Confirm Administered Dose 25 mg .ROUTE .STK-MED ONE Stop: 05/15/17 23:04 Last Admin: 05/15/17 23:09 Dose: Not Given - Exam Wound/Incisions: Healing Well, Other (Elmer looks good) General: Alert, Oriented, Mild Distress Lungs: Clear to Auscultation, Normal Respiratory Effort Cardiovascular: Regular Rate, Regular Rhythm GI/Abdominal Exam: Normal Bowel Sounds, Soft, No Distention, No Mass, Tender, Other (Significant scotal and penile swelling without erythema ) Extremities: Pedal Edema, Other (bilateral lower extremity swelling ) Skin: Other (lacy, blanchable red rash that starts mid torso and descends inferior, stops about mid thigh. Significantly more erythema where catheter sticker was on left thigh. ) Neurological: No New Focal Deficit Psy/Mental Status: Alert, Normal Affect, Normal Mood - Problem List Review Problem List Initiated/Reviewed/Updated: Yes - My Orders Last 24 Hours: Active Orders 24 hr Category Date Time Status NPO [Nothing Per Oral Diet] [DIET] Diet 05/18/17 Breakfast Active Dextrose 5%-Lactated Ringers 1,000 ml Med 05/18/17 07:00 Active IV ASDIRECTED Lactated Ringers [Ringers, Lactated] 500 ml Med 05/18/17 16:00 Active IV .BOLUS Naloxone [Narcan] Med 05/18/17 07:13 Active 0.1 mg IV ASDIRECTED PRN Scrotal Support [OM.PC] Routine Oth 05/18/17 06:59 Ordered Medication Orders Bisacodyl (Dulcolax) 20 mg PO BID [facility] Last Admin: 05/18/17 20:30 Dose: 20 mg Admin: 05/18/17 08:26 Dose: 20 mg Admin: 05/17/17 21:21 Dose: 20 mg Admin: 05/17/17 09:01 Dose: 20 mg Admin: 05/16/17 21:34 Dose: 20 mg Admin: 05/16/17 08:40 Dose: 20 mg Celecoxib (Celebrex) 200 mg PO DAILY@0800 [facility] Last Admin: 05/18/17 08:24 Dose: 200 mg Admin: 05/17/17 09:01 Dose: 200 mg Cyclobenzaprine HCl (Flexeril) 10 mg PO Q6H [facility] Last Admin: 05/19/17 03:24 Dose: 10 mg Admin: 05/18/17 22:02 Dose: 10 mg Admin: 05/18/17 16:18 Dose: 10 mg Admin: 05/18/17 09:28 Dose: 10 mg Admin: 05/18/17 05:21 Dose: 10 mg Admin: 05/17/17 21:20 Dose: 10 mg Admin: 05/17/17 15:00 Dose: 10 mg Admin: 05/17/17 09:01 Dose: 10 mg Enoxaparin Sodium (Lovenox) 40 mg SUBCUT DAILY [facility] Last Admin: 05/18/17 08:27 Dose: 40 mg Admin: 05/17/17 08:56 Dose: 40 mg Admin: 05/16/17 08:41 Dose: 40 mg Fentanyl (Duragesic) 25 mcg TRDERM Q72H [facility] Last Admin: 05/17/17 08:55 Dose: 25 mcg Hydromorphone HCl (Dilaudid Catcher Helper 15 Mg In Ns 30 Ml) 0 mg IV ASDIRECTED PRN; Protocol PRN Reason: Pain Last Admin: 05/18/17 17:31 Dose: 15 mg Admin: 05/17/17 23:14 Dose: 15 mg Hydroxyzine HCl (Vistaril) 100 mg IM Q4H PRN PRN Reason: PAIN Hydroxyzine HCl (Atarax) 100 mg PO Q4H PRN PRN Reason: PAIN Last Admin: 05/18/17 20:35 Dose: 100 mg Admin: 05/16/17 15:09 Dose: 100 mg Dextrose/Lactated Ringer's (Dextrose 5%-Lactated Ringers) 1,000 mls @ 100 mls/ hr IV ASDIRECTED [facility] Last Admin: 05/19/17 03:24 Dose: 100 mls/hr Infusion: 05/19/17 03:22 Dose: 100 mls/hr Admin: 05/18/17 17:22 Dose: 100 mls/hr Infusion: 05/18/17 17:19 Dose: 100 mls/hr Admin: 05/18/17 07:19 Dose: 100 mls/hr Lactated Ringer's (Ringers, Lactated) 500 mls @ 500 mls/hr IV .BOLUS [facility] Last Admin: 05/18/17 16:18 Dose: 500 mls/hr Lorazepam (Ativan) 0.5 - 1 mg IVPUSH Q2H PRN PRN Reason: Nausea Last Admin: 05/18/17 01:43 Dose: 0.5 mg Metoclopramide HCl (Reglan) 10 mg IV Q6H PRN PRN Reason: Nausea Last Admin: 05/18/17 01:44 Dose: 10 mg Naloxone HCl (Narcan) 0.1 mg IV ASDIRECTED PRN PRN Reason: decreased respiratory rate Nicotine (Habitrol) 21 mg TRDERM DAILY [facility] Last Admin: 05/18/17 08:24 Dose: 21 mg Admin: 05/17/17 08:54 Dose: 21 mg Admin: 05/16/17 08:42 Dose: 21 mg Admin: 05/15/17 19:13 Dose: 21 mg Verify Scop Patch 0 each TOP DAILY [facility] Last Admin: 05/18/17 08:28 Dose: Not Given Admin: 05/17/17 09:36 Dose: Not Given Admin: 05/16/17 08:50 Dose: Not Given Admin: 05/15/17 13:34 Dose: Fentanyl Patch Check 1 each TOP BID [facility] Last Admin: 05/18/17 20:26 Dose: Admin: 05/18/17 08:39 Dose: Admin: 05/17/17 21:22 Dose: Ondansetron HCl (Zofran) 4 mg IV Q4H PRN PRN Reason: N/V Last Admin: 05/18/17 08:33 Dose: 4 mg Admin: 05/17/17 21:18 Dose: 4 mg Admin: 05/17/17 17:15 Dose: 4 mg Admin: 05/17/17 12:16 Dose: 4 mg Admin: 05/16/17 17:40 Dose: 4 mg Oxycodone/Acetaminophen (Percocet 325-10 Mg) 0 tab PO Q4H PRN PRN Reason: PAIN Last Admin: 05/17/17 21:20 Dose: 2 tab Admin: 05/17/17 17:11 Dose: 2 tab Admin: 05/17/17 12:34 Dose: 2 tab Admin: 05/17/17 08:33 Dose: 2 tab Pantoprazole Sodium (Protonix) 40 mg PO ACBREAKFAST [facility] Last Admin: 05/18/17 08:23 Dose: 40 mg Admin: 05/17/17 15:01 Dose: 40 mg Scopolamine (Transderm-Scop) 1.5 mg TOP Q72H [facility] Last Admin: 05/18/17 08:25 Dose: 1.5 mg Admin: 05/18/17 07:09 Dose: Not Given Admin: 05/15/17 06:09 Dose: 1.5 mg Senna/Docusate Sodium (Senna Plus) 2 tab PO BID [facility] Last Admin: 05/18/17 20:30 Dose: 2 tab Admin: 05/18/17 08:29 Dose: 2 tab Admin: 05/17/17 21:20 Dose: 2 tab Admin: 05/17/17 09:00 Dose: 2 tab Admin: 05/16/17 21:35 Dose: 2 tab Admin: 05/16/17 08:41 Dose: 2 tab Sodium Chloride (Saline Flush) 10 ml IV ASDIRECTED [facility] Last Admin: 05/18/17 08:26 Dose: 10 ml Topiramate (Topamax) 100 mg PO BID [facility] Last Admin: 05/18/17 20:30 Dose: 100 mg Admin: 05/18/17 08:29 Dose: 100 mg Admin: 05/17/17 21:21 Dose: 100 mg Admin: 05/17/17 09:01 Dose: 100 mg Admin: 05/16/17 21:34 Dose: 100 mg Admin: 05/16/17 08:41 Dose: 100 mg Admin: 05/15/17 23:00 Dose: 100 mg - Plan Plan (Free Text/Narrative):: Mandeep Teran is a 37 year old with a past medical history of bipolar and migraines and past surgical history of laminectomy with spinal stenosis who is POD #4 from an Anterior Lumbar Interbody fusion. The patient is stable without a fever, doing much better than yesterday. He is not vomiting or having nausea. He does not look in significant distress. He is still complaining of some lower back pain, which shoots and martinez down both his lower extremities. He still having some pedal and bilateral lower extremity edema despite benign CT of abdomen/pelvis and benign duplex scans of large veins. Most likely, this is an allergic reaction to something. Will consult medicine for advice. The patient did also have one episode of stool incontinence in his sleep and has been having some troubles urinating. Most likely, the dulcolax kicked in leading to the incontinence. The urinary retention could be do the penile and scrotal swelling. He had no further concerns or questions at this time. # Abdominal pain/back pain- related to his surgery. He does feel like he is getting adequate pain control with medications. There no signs of peritonitis. He also denied any nausea or vomiting. His pain seems to respond well to the flexeril, will schedule this. Will continue to monitor - put patient back on [employer] hydromorphone - Fentenyl patch added - Add 10-325 percocet Q6hr PRN - Continue scheduled tylenol at 1000 mg Q6hr - Continue Flexeril 10mg PO Q6hr scheduled - The patient was unable to tolerate gabapentin, D/c this - Continue Clindamycin 212mls/hr Q8hr -Continue Celebrex 200 - Add Full diet - PT consulted, appreciate the help #Bilateral lower extremity swelling/penile and scrotal swelling/- given three benign scans, pts age and the fact that he is on lovenox PPX, a venous clot is very unlikely at this time. The patient is stable. His proteins are low at this time and he is still dehydrated in his intravascular. Thus, this could lead to some swelling. He could also be having an allergic reaction to something given his significant history of allergies to medications. The pt believes that this swelling and rash started around the same time he got his fentanyl patch, unlikely that it is related. But will start the patient on steroids and benedryl. - consult Medicine, Appreciate recs! - Solumedrol - Benedryl Chronic issues: # History of Bipolar and migraines - Continue home dose topamax # Nicotine dependence- - 21 mg transdermal patch in place VTE PPX- Pts Paco score is 5, which indicates need for anticoagulant. Lovenox 40 mg. Pt advised to continue moving around. SCD's in bed. Pneumonia PPX- Pt advised to walk around and use incentive spirometry 10 times per hour Code status: Full Fluids: 100 ml/hr Diet: Full diet Nausea: Zofran Q4hr or [place] Q6hr PRN Bowel regimen: Senna plus (2tabs) and Dulcolox 20 mg BID and 40 Protonix daily Dispo: Patient will most likely remain in the hospital for the next day or two pending pain control and work up for his swelling.
[2017-05-19] MEDS: Pantoprazole 40 MG Tab.CR PO SCH (08:21)
[2017-05-19] MEDS: Celecoxib 200 MG Cap PO SCH (08:22)
[2017-05-19] MEDS: Nicotine 21 MG/24 Hr Patch TRDERM SCH (08:24)
[2017-05-19] MEDS: Enoxaparin 40 MG/0.4 ML Syringe SUBCUT SCH (08:25)
[2017-05-19] MEDS: FENTANYL PATCH CHECK TOP SCH (08:26)
[2017-05-19] MEDS: VERIFY SCOP PATCH TOP SCH (08:26)
[2017-05-19] MEDS: Topiramate 100 MG Tab PO SCH ×2 (08:27→21:18)
[2017-05-19] MEDS: LORazepam 2 MG/ML MDV IVPUSH PRN ×2 (08:27→14:55)
[2017-05-19] MEDS: Bisacodyl 5 MG Tab PO SCH (08:28)
[2017-05-19] MEDS ORDERED: Bisacodyl 5 MG Tab PO PRN (08:29)
[2017-05-19] MEDS ORDERED: methylPREDNISolone Sodium Succinate 125 MG/2 ML SDV IVPUSH SCH (10:00)
[2017-05-19] MEDS: HYDROmorphone/Normal Saline 15 MG/30 ML PCA IV PRN (10:02)
--- NOTE | 2017-05-19 10:54 | PCM.CONS ---
H&P History of Present Illness - General Date of Service: 05/19/17 Admit Problem/Dx: Patient is pod 3 of an ALIF. He is going well. His pain is under control at this time. Source of Information: Patient, Family, Provider History Limitations: Reports: No Limitations - History of Present Illness Initial Comments - Free Text/Narative: Mandeep was admitted for days ago for an anterior lumbar interbody fusion. I was asked to see him today by Dr. Jad Gomez regarding rash and swelling of the scrotum and lower extremities. The patient reports onset of rash and swelling the day after surgery. Initially the rash was on the abdomen and then the upper thighs. Swelling started around the midsection of the body and progressed down his legs. He also has swelling of his scrotum and has noticed periorbital edema as well. The rash is not itchy. He reports a history of allergic type reactions to adhesives and has several areas of erythema where tape has been on his abdomen as well as the locations of his patches (scopolamine and fentanyl). This swelling and rash seemed better today and the fentanyl patch was discontinued yesterday. He was started on Solu-Medrol this morning. Back pain has been bothersome but seems to be getting better. No complaints of chest pain or shortness of breath. No fevers. Lower Back Pain Score (Numeric/FACES): 6 - Related Data Allergies/Adverse Reactions: Allergies Allergy/AdvReac Type Severity Reaction Status Date / Time amoxicillin Allergy Hives Verified 05/15/17 06:06 ampicillin Allergy Other Verified 05/15/17 06:06 erythromycin base Allergy Hives Verified 05/15/17 06:06 Penicillins Allergy Hives Verified 05/15/17 06:06 Home Medications: Home Meds Cyclobenzaprine [Flexeril] 20 mg PO BEDTIME 04/17/17 [History] SUMAtriptan [Imitrex] 25 mg PO Q6H PRN 04/17/17 [History] Topiramate [Topamax] 100 mg PO BID 04/17/17 [History] Past Medical History HEENT History: Reports: None, Impaired Vision Musculoskeletal History: Reports: Back Pain, Chronic Neurological History: Reports: Migraines Psychiatric History: Reports: Anxiety, Bipolar, Depression, Panic Attack Hematologic History: Reports: Blood Transfusion(s) - Infectious Disease History Infectious Disease History: Reports: Chicken Pox - Past Surgical History HEENT Surgical History: Reports: Oral Surgery, Other (See Below) Other HEENT Surgeries/Procedures: eye surgery Neurological Surgical History: Reports: Lumbar Spine Musculoskeletal Surgical History: Reports: Shoulder Surgery, Other (See Below) Other Musculoskeletal Surgeries/Procedures:: low back surgery x1, rods in bilateral femur Social & Family History - Family History Cardiac: Denies: CAD - Tobacco Use Smoking Status *Q: Current Every Day Smoker Years of Tobacco use: 20 Packs/Tins Daily: 0.5 Used Tobacco, but Quit: No Month Tobacco Last Used: May Second Hand Smoke Exposure: Yes - Caffeine Use Caffeine Use: Reports: Soda - Alcohol Use Alcohol Use History: No - Recreational Drug Use Recreational Drug Use: No H&P Review of Systems - Review of Systems: Review Of Systems: See Below Free Text/Narrative: A complete 12 point review of systems was obtained. Pertinent positives and negatives are noted in the history of present illness. All other systems were reviewed and were negative except as noted. Exam - Exam Exam: See Below - Vital Signs Vital Signs: Last Vital Signs Temp 36.8 C 05/19/17 10:49 Pulse 97 05/19/17 10:49 Resp 18 05/19/17 10:49 BP 109/71 05/19/17 10:49 Pulse Ox 95 05/19/17 10:49 Weight: 90.718 kg - Exam Quality Assessment: No: Supplemental Oxygen General: Alert, Oriented, Cooperative. No: Mild Distress HEENT: Conjunctiva Clear, Mucosa Moist & [place] Neck: Supple Lungs: Normal Respiratory Effort GI/Abdominal Exam: Soft, No Distention Rectal (Males) Exam: Other (scrotal edema) Extremities: No Pedal Edema Skin: Warm, Dry, Rash (macular rash on chest, abdomen and upper thighs) Neuro Extensive - Mental Status: Alert, Oriented x3, Nl Response to Commands Psychiatric: Alert, Normal Affect - Patient Data Lab Results Last 24 hrs: Laboratory Results - last 24 hr 05/15/17 05/19/17 05/19/17 Range/Units 05:57 05:03 05:03 WBC 7.5 (4.5-11.0) K/uL RBC 3.89 L (4.30-5.90) M/uL Hgb 11.6 L (12.0-15.0) g/dL Hct 34.5 L (40.0-54.0) % MCV 89 (80-98) fL MCH 30 (27-31) pg MCHC 34 (32-36) % Plt Count 175 (150-400) K/uL Sodium 139 L (140-148) mmol/L Potassium 3.3 L (3.6-5.2) mmol/L Chloride 106 (100-108) mmol/L Carbon Dioxide 24 (21-32) mmol/L Anion Gap 12.3 (5.0-14.0) mmol/L BUN 11 (7-18) mg/dL Creatinine 0.9 (0.8-1.3) mg/dL Est Cr Clr Drug Dosing 116.32 mL/min Estimated GFR (MDRD) > 60 (>60) Glucose 105 (74-106) mg/dL Calcium 9.1 (8.5-10.1) mg/dL Phosphorus 2.8 (2.5-4.9) mg/dL Magnesium 1.9 (1.8-2.4) mg/dL Total Bilirubin 0.6 (0.2-1.0) mg/dL AST 75 H D (15-37) U/L ALT 96 H (12-78) U/L Alkaline Phosphatase 74 (46-116) U/L Total Protein 5.7 L (6.4-8.2) g/dL Albumin 2.7 L (3.4-5.0) g/dL Globulin 3.0 (2.3-3.5) g/dL Albumin/Globulin Ratio 0.9 L (1.2-2.2) Crossmatch See Detail Result Diagrams: 05/19/17 05:03 05/19/17 05:03 Consult PN Assessment/Plan POD#: 4 Procedures: Procedures BLOOD TYPING SEROLOGIC ABO (04/23/17) BLOOD TYPING SEROLOGIC RH(D) (04/23/17) COMPLETE CBC AUTOMATED (04/23/17) COMPREHEN METABOLIC PANEL (04/23/17) CULTURE OTHR SPECIMN AEROBIC (04/23/17) ORTHOTIC MGMT&TRAINJ 1ST ENC (05/02/17) RBC ANTIBODY SCREEN (04/23/17) ROUTINE VENIPUNCTURE (04/23/17) SELF CARE MNGMENT TRAINING (05/02/17) URINALYSIS AUTO W/O SCOPE (04/23/17) X-RAY EXAM L-S SPINE 2/3 VWS (04/23/17) (1) Allergic reaction caused by a drug SNOMED Code(s): 199185845 Code(s): T78.40XA - ALLERGY, UNSPECIFIED, INITIAL ENCOUNTER Current Visit: Yes Qualifiers: Encounter type: initial encounter Qualified Code(s): T78.40XA - Allergy, unspecified, initial encounter Problem List Initiated/Reviewed/Updated: Yes My Orders Last 24 Hours: My Active Orders 05/19/17 11:00 diphenhydrAMINE [Benadryl] 25 mg PO Q6H Plan: ASSESSMENT AND PLAN Probable local and systemic allergic reaction with angioedema - medication unknown but fentanyl could be considered. Definite allergy to adhesives with well delineated areas on the abdomen as well as previous patch locations. Clinically sounds like he's getting better and he has been started on steroids. He has a history of a similar reaction to penicillins but has not received any penicillin antibiotics. He reports the swelling is better and rash is relatively mild at this time. I suspect that the offending medication has been discontinued since things are getting better though it's not entirely clear which medication gave him the trouble. -Agree with steroids overnight -Scheduled Benadryl Chronic lower back pain with degenerative disc disease - status post ALIF on . -Postoperative cares per surgical team Guillaume Wilson M.D. Requesting Provider: Dr Gomez Date Consult Requested: 05/19/17 Reason for Consult: rash Patient History Reviewed: Yes Admission H&P Reviewed: Yes Notified Requestor: No Time Spent (in minutes): 40
[2017-05-19] MEDS: Potassium Phosphates 20 MMOLE in Sodium Chloride 0.9% 250 ML IV SCH ×3 (11:13→17:46)
[2017-05-19] MEDS: diphenhydrAMINE 25 MG Cap PO SCH ×4 (11:27→22:17)
[2017-05-19] MEDS ORDERED: Haloperidol 5 MG Tab PO PRN (19:11)
--- NOTE | 2017-05-19 19:14 | PCM.SN ---
- Free Text/Narrative Note: Mandeep has been agitated throughout the afternoon and evening. He is not quite sure why he is agitated but states that he feels like he is manic at this time. He has been pacing the hallways. He shoved his IV pole earlier in the afternoon and his IV was removed accidentally at that time. He is requesting to have some space at this time and to be left alone. He does not want anything else to help him calm down. I did order Haldol as needed for agitation if he is interested in something to help calm down. This may be a reaction to medications with lorazepam being a potential culprit since it was taken a short while before he escalated. He is otherwise stable at this time and so far has been redirectable. Guillaume Wilson MD
[2017-05-19] MEDS: Acetaminophen/oxyCODONE 325-10 MG Tab PO PRN ×2 (19:36→23:48)
[2017-05-20] MEDS: Cyclobenzaprine 10 MG Tab PO SCH ×4 (04:12→21:15)
[2017-05-20] MEDS: Acetaminophen/oxyCODONE 325-10 MG Tab PO PRN ×5 (04:15→21:14)
[2017-05-20] MEDS: diphenhydrAMINE 25 MG Cap PO SCH ×4 (04:17→22:15)
[2017-05-20] MEDS: Pantoprazole 40 MG Tab.CR PO SCH (07:41)
[2017-05-20] MEDS: Celecoxib 200 MG Cap PO SCH (07:43)
[2017-05-20] MEDS ORDERED: Furosemide 20 MG Tab PO ONE (09:00)
[2017-05-20] MEDS ORDERED: Potassium Chloride 20 MEQ Tab.ER PO ONE (09:00)
[2017-05-20] MEDS: Nicotine 21 MG/24 Hr Patch TRDERM SCH (09:13)
[2017-05-20] MEDS: Enoxaparin 40 MG/0.4 ML Syringe SUBCUT SCH (09:13)
[2017-05-20] MEDS: Famotidine 20 MG Tab PO SCH ×2 (09:15→22:14)
[2017-05-20] MEDS: VERIFY SCOP PATCH TOP SCH (09:16)
[2017-05-20] MEDS: Topiramate 100 MG Tab PO SCH ×2 (09:24→21:13)
[2017-05-20] MEDS: hydrOXYzine HCl 25 MG Tab PO PRN (11:15)
--- NOTE | 2017-05-20 13:58 | PCM.CONSN ---
- General Info Date of Service: 05/20/17 Functional Status: Reports: Pain Controlled, Tolerating Diet, Ambulating - Review of Systems General: Denies: Fever Psychiatric: Reports: Agitation Systems Review Comment:: Yesterday evening the patient had some difficulty with agitation. He is much more calm this morning. Pain is well-controlled. He reports his swelling is slowly improving. He has not had any fevers. He thinks his rash is getting better. Pain has been well-controlled without the [employer]. - Patient Data Vitals - Most Recent: Last Vital Signs Temp 35.9 C 05/20/17 12:45 Pulse 74 05/20/17 12:45 Resp 18 05/20/17 12:45 BP 121/84 05/20/17 12:45 Pulse Ox 100 05/20/17 12:45 Weight - Most Recent: 90.718 kg I&O - Last 24 Hours: Intake & Output 05/19/17 05/20/17 05/20/17 22:59 06:59 14:59 Intake Total 1312 1000 Output Total 1175 1500 Balance 137 -500 Lab Results Last 24 Hours: Laboratory Results - last 24 hr 05/20/17 05/20/17 Range/Units 04:33 04:33 WBC 10.3 (4.5-11.0) K/uL RBC 3.92 L (4.30-5.90) M/uL Hgb 11.6 L (12.0-15.0) g/dL Hct 34.2 L (40.0-54.0) % MCV 87 (80-98) fL MCH 30 (27-31) pg MCHC 34 (32-36) % Plt Count 230 (150-400) K/uL Sodium 142 (140-148) mmol/L Potassium 3.6 (3.6-5.2) mmol/L Chloride 109 H (100-108) mmol/L Carbon Dioxide 23 (21-32) mmol/L Anion Gap 13.6 (5.0-14.0) mmol/L BUN 12 (7-18) mg/dL Creatinine 1.0 (0.8-1.3) mg/dL Est Cr Clr Drug Dosing 104.69 mL/min Estimated GFR (MDRD) > 60 (>60) Glucose 112 H (74-106) mg/dL Calcium 9.4 (8.5-10.1) mg/dL Phosphorus 3.4 (2.5-4.9) mg/dL Total Bilirubin 0.3 (0.2-1.0) mg/dL AST 46 H (15-37) U/L ALT 78 (12-78) U/L Alkaline Phosphatase 95 (46-116) U/L Total Protein 5.9 L (6.4-8.2) g/dL Albumin 2.7 L (3.4-5.0) g/dL Globulin 3.2 (2.3-3.5) g/dL Albumin/Globulin Ratio 0.8 L (1.2-2.2) Med Orders - Current: Current Medications Bisacodyl (Dulcolax) 10 mg PO ASDIRECTED PRN PRN Reason: BOWEL MOVEMENT Celecoxib (Celebrex) 200 mg PO DAILY@0800 [facility] Last Admin: 05/20/17 07:43 Dose: 200 mg Cyclobenzaprine HCl (Flexeril) 10 mg PO Q6H [facility] Last Admin: 05/20/17 09:24 Dose: 10 mg Diphenhydramine HCl (Benadryl) 25 mg PO Q6H [facility] Last Admin: 05/20/17 12:43 Dose: 25 mg Enoxaparin Sodium (Lovenox) 40 mg SUBCUT DAILY [facility] Last Admin: 05/20/17 09:13 Dose: 40 mg Famotidine (Pepcid) 20 mg PO BID [facility] Last Admin: 05/20/17 09:15 Dose: 20 mg Haloperidol (Haldol) 5 mg PO Q4H PRN PRN Reason: Agitation Hydroxyzine HCl (Vistaril) 100 mg IM Q4H PRN PRN Reason: PAIN Last Admin: 05/19/17 21:25 Dose: 100 mg Hydroxyzine HCl (Atarax) 100 mg PO Q4H PRN PRN Reason: PAIN Last Admin: 05/20/17 11:15 Dose: 100 mg Nicotine (Habitrol) 21 mg TRDERM DAILY [facility] Last Admin: 05/20/17 09:13 Dose: 21 mg Verify Scop Patch 0 each TOP DAILY [facility] Last Admin: 05/20/17 09:16 Dose: Not Given Oxycodone/Acetaminophen (Percocet 325-10 Mg) 0 tab PO Q4H PRN PRN Reason: PAIN Last Admin: 05/20/17 13:20 Dose: 2 tab Pantoprazole Sodium (Protonix) 40 mg PO ACBREAKFAST [facility] Last Admin: 05/20/17 07:41 Dose: 40 mg Senna/Docusate Sodium (Senna Plus) 2 tab PO BID [facility] Last Admin: 05/20/17 09:23 Dose: 1 tab Topiramate (Topamax) 100 mg PO BID [facility] Last Admin: 05/20/17 09:24 Dose: 100 mg Discontinued Medications Acetaminophen (Tylenol Extra Strength) 1,000 mg PO ONETIME ONE Stop: 05/15/17 05:31 Last Admin: 05/15/17 06:09 Dose: 1,000 mg Acetaminophen (Tylenol Extra Strength) 1,000 mg PO Q6H [facility] Last Admin: 05/16/17 13:46 Dose: 1,000 mg Acetaminophen/Aspirin/Caffeine (Excedrin Extra Strength) 2 tab PO ONETIME ONE Stop: 05/17/17 08:41 Last Admin: 05/17/17 08:52 Dose: 2 tab Bisacodyl (Dulcolax) 20 mg PO BID [facility] Last Admin: 05/19/17 08:28 Dose: Not Given Cyclobenzaprine HCl (Flexeril) 10 mg PO Q6H PRN PRN Reason: MUSCLE SPASM Last Admin: 05/17/17 00:30 Dose: 10 mg Dexamethasone (Dexamethasone) Confirm Administered Dose 4 mg .ROUTE .STK-MED ONE Stop: 05/15/17 07:05 Fentanyl (Sublimaze) Confirm Administered Dose 250 mcg .ROUTE .STK-MED ONE Stop: 05/15/17 07:47 Fentanyl (Sublimaze) Confirm Administered Dose 250 mcg .ROUTE .STK-MED ONE Stop: 05/15/17 07:50 Fentanyl (Sublimaze) Confirm Administered Dose 250 mcg .ROUTE .STK-MED ONE Stop: 05/15/17 08:11 Fentanyl (Sublimaze) Confirm Administered Dose 250 mcg .ROUTE .STK-MED ONE Stop: 05/15/17 08:41 Fentanyl (Sublimaze) Confirm Administered Dose 100 mcg .ROUTE .STK-MED ONE Stop: 05/15/17 09:45 Fentanyl (Duragesic) 25 mcg TRDERM Q72H [facility] Last Admin: 05/17/17 08:55 Dose: 25 mcg Furosemide (Lasix) 20 mg PO ONETIME ONE Stop: 05/20/17 09:01 Last Admin: 05/20/17 09:12 Dose: 20 mg Gabapentin (Neurontin) 300 mg PO ONETIME ONE Stop: 05/15/17 05:31 Last Admin: 05/15/17 06:09 Dose: 300 mg Gabapentin (Neurontin) 300 mg PO TID [facility] Last Admin: 05/15/17 16:09 Dose: Not Given Glycopyrrolate () Confirm Administered Dose 1 mg .ROUTE .STK-MED ONE Stop: 05/15/17 07:05 Hydromorphone HCl (Dilaudid Hospital Monitor 15 Mg In Ns 30 Ml) 0 mg IV ASDIRECTED PRN; Protocol PRN Reason: Pain Last Admin: 05/16/17 03:48 Dose: 15 mg Hydromorphone HCl (Dilaudid) 2 - 4 mg PO Q4H PRN PRN Reason: Pain Last Admin: 05/17/17 05:11 Dose: 4 mg Hydromorphone HCl (Dilaudid Hospital Monitor 15 Mg In Ns 30 Ml) 0 mg IV ASDIRECTED PRN; Protocol PRN Reason: Pain Last Admin: 05/19/17 10:02 Dose: 15 mg Clindamycin Phosphate 900 mg/ (Sodium Chloride) 106 mls @ 212 mls/hr IV ONETIME ONE Stop: 05/15/17 06:29 Last Admin: 05/15/17 08:00 Dose: 212 mls/hr Lactated Ringer's (Ringers, Lactated) 1,000 mls @ 0 mls/hr IV ASDIRECTED SAVANNAH PRN Reason: KVO Last Admin: 05/15/17 06:11 Dose: 25 mls/hr Tranexamic Acid 930 mg/ Sodium (Chloride) 59.3 mls @ 237.2 mls/hr IV Q3H [facility] Stop: 05/15/17 10:49 Last Admin: 05/15/17 10:15 Dose: 237.2 mls/hr Ketamine HCl 100 mg/ Sodium (Chloride) 100 mls @ 21.93 mls/hr IV ASDIRECTED SAVANNAH PRN Reason: 5 MCG/KG/MIN Stop: 05/15/17 09:35 Linezolid (Zyvox) Confirm Administered Dose 100 mls @ as directed .ROUTE .STK- MED ONE Stop: 05/15/17 06:34 Lactated Ringer's (Ringers, Lactated) Confirm Administered Dose 1,000 mls @ as directed .ROUTE .STK-MED ONE Stop: 05/15/17 08:39 Dextrose/Lactated Ringer's (Dextrose 5%-Lactated Ringers) 1,000 mls @ 175 mls/ hr IV ASDIRECTED SAVANNAH Last Admin: 05/16/17 06:07 Dose: 175 mls/hr Clindamycin Phosphate 900 mg/ (Sodium Chloride) 106 mls @ 212 mls/hr IV Q8H [facility] Stop: 05/16/17 08:29 Last Admin: 05/16/17 07:25 Dose: 212 mls/hr Dextrose/Lactated Ringer's (Dextrose 5%-Lactated Ringers) 1,000 mls @ 100 mls/ hr IV ASDIRECTED [facility] Last Admin: 05/17/17 00:56 Dose: 100 mls/hr Sodium Chloride (Normal Saline) 500 mls @ 25 mls/hr IV ONETIME ONE Stop: 05/18/17 18:58 Last Admin: 05/17/17 23:14 Dose: 25 mls/hr Sodium Chloride (Normal Saline) 81 mls @ 4 mls/sec IV ASDIRECTED STA Stop: 05/18/17 00:59 Last Admin: 05/18/17 01:18 Dose: 4 mls/sec Dextrose/Lactated Ringer's (Dextrose 5%-Lactated Ringers) 1,000 mls @ 100 mls/ hr IV ASDIRECTED SAVANNAH Last Admin: 05/19/17 03:24 Dose: 100 mls/hr Lactated Ringer's (Ringers, Lactated) 500 mls @ 500 mls/hr IV .BOLUS [facility] Last Admin: 05/18/17 16:18 Dose: 500 mls/hr Potassium Phosphate 20 mmole/ (Sodium Chloride) 256.6667 mls @ 86 mls/hr IV Q3H [facility] Stop: 05/19/17 18:59 Last Admin: 05/19/17 17:46 Dose: Not Given Iopamidol (Isovue-300 (61%)) 135 ml IV . DIRECTED STA Stop: 05/18/17 00:58 Last Admin: 05/18/17 01:17 Dose: 150 ml Ketamine HCl (Ketalar) 36 mg IV ONETIME ONE Stop: 05/15/17 07:36 Last Admin: 05/15/17 13:34 Dose: Not Given Labetalol HCl (Normodyne) Confirm Administered Dose 20 mg .ROUTE .STK-MED ONE Stop: 05/15/17 09:15 Linezolid (Zyvox) 200 mg IRR .STK-MED ONE Stop: 05/15/17 09:01 Last Admin: 05/15/17 09:00 Dose: 200 mg Lorazepam (Ativan) 0.5 - 1 mg IVPUSH Q2H PRN PRN Reason: Nausea Last Admin: 05/19/17 14:55 Dose: 1 mg Methylprednisolone Sodium Succinate (Solu-Medrol) 80 mg IVPUSH Q8H [facility] Last Admin: 05/19/17 09:48 Dose: 80 mg Metoclopramide HCl (Reglan) 10 mg IV Q6H PRN PRN Reason: Nausea Last Admin: 05/18/17 01:44 Dose: 10 mg Naloxone HCl (Narcan) 0.1 mg IVPUSH Q5M PRN PRN Reason: Respiratory Distress Naloxone HCl (Narcan) 0.1 mg IV ASDIRECTED PRN PRN Reason: decreased respiratory rate Neostigmine Methylsulfate (Neostigmine) Confirm Administered Dose 5 mg .ROUTE .STK-MED ONE Stop: 05/15/17 07:05 Fentanyl Patch Check 1 each TOP BID [facility] Last Admin: 05/19/17 08:26 Dose: Not Given Ondansetron HCl (Zofran) Confirm Administered Dose 4 mg .ROUTE .STK-MED ONE Stop: 05/15/17 07:05 Ondansetron HCl (Zofran) 4 mg IV Q4H PRN PRN Reason: N/V Last Admin: 05/18/17 08:33 Dose: 4 mg Oxycodone/Acetaminophen (Percocet 325-5 Mg) 1 - 2 tab PO Q4H PRN PRN Reason: Pain Last Admin: 05/16/17 18:17 Dose: 2 tab Pantoprazole Sodium (Protonix Iv) 40 mg IV Q24H [facility] Last Admin: 05/16/17 13:46 Dose: 40 mg Potassium Chloride (Klor-Con M20) 40 meq PO ONETIME ONE Stop: 05/20/17 09:01 Last Admin: 05/20/17 09:12 Dose: 40 meq Povidone Iodine (Betadine 10% Soln) Confirm Administered Dose 1 ml .ROUTE .STK- MED ONE Stop: 05/15/17 06:34 Propofol (Diprivan 20 Ml) Confirm Administered Dose 200 mg .ROUTE .STK-MED ONE Stop: 05/15/17 07:05 Propofol (Diprivan 20 Ml) Confirm Administered Dose 400 mg .ROUTE .STK-MED ONE Stop: 05/15/17 07:50 Propofol (Diprivan 20 Ml) Confirm Administered Dose 400 mg .ROUTE .STK-MED ONE Stop: 05/15/17 08:34 Rocuronium [place] (Zemuron) Confirm Administered Dose 50 mg .ROUTE .STK-MED ONE Stop: 05/15/17 07:05 Scopolamine (Transderm-Scop) 1.5 mg TOP Q72H [facility] Last Admin: 05/18/17 08:25 Dose: 1.5 mg Sodium Chloride (Saline Flush) 10 ml IV ASDIRECTED [facility] Last Admin: 05/18/17 08:26 Dose: 10 ml Succinylcholine Chloride (Succinylcholine In Ns Pf) Confirm Administered Dose 200 mg .ROUTE .STK-MED ONE Stop: 05/15/17 07:05 Thrombin (Thrombin-Jmi) Confirm Administered Dose 15,000 unit .ROUTE .STK-MED ONE Stop: 05/15/17 06:34 Topiramate (Topamax) Confirm Administered Dose 100 mg .ROUTE .STK-MED ONE Stop: 05/15/17 22:58 Last Admin: 05/15/17 23:02 Dose: Not Given Topiramate (Topamax) Confirm Administered Dose 25 mg .ROUTE .STK-MED ONE Stop: 05/15/17 23:04 Last Admin: 05/15/17 23:09 Dose: Not Given - Exam Quality Assessment: No: Supplemental Oxygen General: Alert, Oriented, Cooperative, No Acute Distress Neck: Supple Lungs: Normal Respiratory Effort GI/Abdominal Exam: Soft, No Distention Extremities: Pedal Edema (Mild generalized edema of both legs) Skin: Rash (Very faint macular rash across abdomen and upper thighs) Wound/Incisions: Healing Well, No Drainage Psy/Mental Status: Alert, Normal Affect Consult PN Assessment/Plan POD#: 5 Procedures: Procedures BLOOD TYPING SEROLOGIC ABO (04/23/17) BLOOD TYPING SEROLOGIC RH(D) (04/23/17) COMPLETE CBC AUTOMATED (04/23/17) COMPREHEN METABOLIC PANEL (04/23/17) CULTURE OTHR SPECIMN AEROBIC (04/23/17) ORTHOTIC MGMT&TRAINJ 1ST ENC (05/02/17) RBC ANTIBODY SCREEN (04/23/17) ROUTINE VENIPUNCTURE (04/23/17) SELF CARE MNGMENT TRAINING (05/02/17) URINALYSIS AUTO W/O SCOPE (04/23/17) X-RAY EXAM L-S SPINE 2/3 VWS (04/23/17) (1) Allergic reaction caused by a drug SNOMED Code(s): 533315688 Code(s): T78.40XA - ALLERGY, UNSPECIFIED, INITIAL ENCOUNTER Current Visit: Yes Qualifiers: Encounter type: initial encounter Qualified Code(s): T78.40XA - Allergy, unspecified, initial encounter Problem List Initiated/Reviewed/Updated: Yes My Orders Last 24 Hours: My Active Orders 05/19/17 19:11 Haloperidol [Haldol] 5 mg PO Q4H PRN Plan: ASSESSMENT AND PLAN Probable local and systemic allergic reaction with angioedema - medication unknown but fentanyl could be considered. Definite allergy to adhesives with well delineated areas on the abdomen as well as previous patch locations. Did not tolerate steroids with significant increase in agitation yesterday. Rash seems to be getting better. He is on both diphenhydramine and famotidine at this time. Swelling is getting better but has not resolved. -Avoid steroids with significant agitation -Scheduled Benadryl -Agree with famotidine Agitation - significant episode yesterday evening but is calm and back to normal today. Suspect contribution from medications with steroids being likely offender. -Continue home medications -Avoid steroids Chronic lower back pain with degenerative disc disease - status post ALIF on . -Postoperative cares per surgical team Rash has shown significant improvement and swelling is improving as well. Internal medicine will sign off at this time. Please feel free to re-consult with new problems or other concerns. Guillaume Wilson M.D.
[2017-05-21] MEDS: Acetaminophen/oxyCODONE 325-10 MG Tab PO PRN ×3 (01:07→08:23)
[2017-05-21] MEDS: diphenhydrAMINE 25 MG Cap PO SCH (04:35)
[2017-05-21] MEDS: Cyclobenzaprine 10 MG Tab PO SCH (04:35)
[2017-05-21] MEDS: Pantoprazole 40 MG Tab.CR PO SCH (08:22)
[2017-05-21] MEDS: Celecoxib 200 MG Cap PO SCH (08:22)
[2017-05-21] MEDS: Famotidine 20 MG Tab PO SCH (08:22)
[2017-05-21] MEDS: Topiramate 100 MG Tab PO SCH (08:23)
[2017-05-21] MEDS: VERIFY SCOP PATCH TOP SCH (08:25)
[2017-05-21] MEDS: Nicotine 21 MG/24 Hr Patch TRDERM SCH (08:26)
[2017-05-21] MEDS: Enoxaparin 40 MG/0.4 ML Syringe SUBCUT SCH (08:28)
--- NOTE | 2017-05-21 12:56 | PN ---
DATE OF SERVICE: 05/20/2017 The patient has been afebrile with stable vital signs. He had some reaction likely to steroids yesterday with exacerbation of PTSD. He is quite a bit better this morning. He does not appear to be significantly anxious. His steroids were stopped and continue with Benadryl. The redness and swelling in his scrotum and abdomen and thighs all appeared to be decreased somewhat, so I think we are getting past whatever reaction he was having. We will give him a low-dose Lasix today and add some thigh-high ALFREDA hose. He may be ready for discharge home tomorrow. Burke Gomez MD /[id number]
--- NOTE | 2017-05-21 13:12 | PCM.DCSUM1 ---
Discharge Summary - Hospital Course HPI Initial Comments: Mandeep Teran is a 37 year old with a past medical history of bipolar and migraines and past surgical history of laminectomy with spinal stenosis who is POD #6 from an Anterior Lumbar Interbody fusion. - Discharge Data Discharge Date: 05/21/17 Discharge Disposition: Home, Self-Care 01 Condition: Good - Patient Summary/Data Operative Procedure(s) Performed: Anterior Lumber Interbody Fusion Complications: Allergic reaction causing severe lower extremity swelling. Consults: Consultations 05/15/17 18:02 OT Evaluation and Treatment [CONS] Routine Please Evaluate and Treat. OT Reason for Consult: post op Lumbar surgery This query below is only for informational purposes and is not editable. Admission Diagnosis/Problem: Status post lumbar spine operation 05/16/17 12:22 PT Evaluation and Treatment [CONS] Routine Please Evaluate and Treat. PT Reason for Consult: S/P ALIF Special Instructions: PT eval and teaching POD #1 NO bending or lifting more than 10 pounds This query below is only for informational purposes and is not editable. 05/19/17 10:00 Consult to Physician [CONS] Routine Consulting Provider: Guillaume Wilson Call Completed to Consulting Physician: No Recommended Follow-up Testing/Procedures: Follow up in clinic this Sunday05/25/17 for removal of his sutures and KYLE drain. - Patient Instructions Diet: Usual Diet as Tolerated, Drink 8-10+ Glasses/Day Activity: No Lifting Over 25 Pounds Activity, Other: As Instructed by Dr. Juanpablo Gomez's team and Physical therapy Driving: Do Not Drive Showering/Bathing: May Shower Wound/Incision Care: Keep Operative Site/Wound Site Clean and Dry Notify Provider of: Fever, Increased Pain, Swelling and Redness, Nausea and/or Vomiting Other/Special Instructions: Use incentive inspirometer 10 times every hour while awake for 1 week. - Discharge Plan Prescriptions/Med Rec: Acetaminophen/oxyCODONE [Percocet 325-10 MG] 1 tab PO Q4H PRN #40 tablet PRN Reason: PAIN Bisacodyl [Dulcolax] 10 mg PO DAILY #30 tablet Cyclobenzaprine [Flexeril] 10 mg PO Q6H #40 tablet diphenhydrAMINE [Benadryl] 25 mg PO Q6H PRN #100 cap PRN Reason: itching and swelling Famotidine [Pepcid] 20 mg PO BID #60 tablet Home Medications: Home Meds SUMAtriptan [Imitrex] 25 mg PO Q6H PRN 04/17/ [History] Topiramate [Topamax] 100 mg PO BID 04/17/ [History] Acetaminophen/oxyCODONE [Percocet 325-10 MG] 1 tab PO Q4H PRN #40 tablet [Rx] Bisacodyl [Dulcolax] 10 mg PO DAILY #30 tablet 05/21/17 [Rx] Cyclobenzaprine [Flexeril] 10 mg PO Q6H #40 tablet 05/21/17 [Rx] Famotidine [Pepcid] 20 mg PO BID #60 tablet 05/21/17 [Rx] diphenhydrAMINE [Benadryl] 25 mg PO Q6H PRN #100 cap 05/21/17 [Rx] Referrals: Dulce Thompson PA-C [Physician On Site Nurse] - 05/25/18 9:30 am Cris Park NP [Nurse Practitioner] - 06/14/18 11:45 am - Discharge Summary/Plan Comment DC Time >30 min.: No Discharge Summary/Plan Comment: Mandeep Teran is a 37 year old with a past medical history of bipolar and migraines and past surgical history of laminectomy with spinal stenosis who is POD #6 from an Anterior Lumbar Interbody fusion. The patient had some acute events while here, which lead to his stay longer than anticipated. 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 Later that day, he had uncontrolled pain and was subsequently put on higher doses of percocet 10-325mg from 5-325mg and a fentanyl patch was added. In the AM on POD #3, the patient subsequently developed an erythematous rash from his lower abdomen down with bilateral lower extremity edema. He did not have significant calf pain, however a duplex scan of the large veins in his legs was done, which was completely benign without evidence of DVT. He also had a CT scan of his abdomen/pelvis which only showed significant stool in the colon. Senna and ducolax were added with relief of his constipation. The most likely cause of the diffuse lower extremity edema was allergic reaction. Solu-medrol and benedyl were given with some relief of his swelling. Medicine was consulted to be sure nothing was being missed, they agreed that this was allergic in nature and nothing insidious was going on. The patient did have an episode of steroid induced psychosis. He was subsequently taken off the solu-medrol and famotidine was added to control his allergic reaction. On POD #6 the patients swelling had gone down significantly. His pain was under control with only PO pain medications. He was comfortable going home with follow up this Sunday05/25/17 in clinic. - Patient Data Vitals - Most Recent: Last Vital Signs Temp 35.6 C 05/21/17 07:00 Pulse 78 05/21/17 07:00 Resp 18 05/21/17 07:00 BP 126/91 H 05/21/17 07:00 Pulse Ox 99 05/21/17 07:00 Weight - Most Recent: 90.718 kg I&O - Last 24 hours: Intake & Output 05/20/17 05/21/17 05/21/17 22:59 06:59 14:59 Intake Total 840 Output Total 5 30 Balance -5 810 Lab Results - Last 24 hrs: Laboratory Results - last 24 hr 05/21/17 Range/Units 04:30 Sodium 142 (140-148) mmol/L Potassium 3.7 (3.6-5.2) mmol/L Chloride 111 H (100-108) mmol/L Carbon Dioxide 21 (21-32) mmol/L Anion Gap 13.7 (5.0-14.0) mmol/L BUN 14 (7-18) mg/dL Creatinine 0.9 (0.8-1.3) mg/dL Est Cr Clr Drug Dosing 116.32 mL/min Estimated GFR (MDRD) > 60 (>60) Glucose 111 H (74-106) mg/dL Calcium 9.0 (8.5-10.1) mg/dL Med Orders - Current: Current Medications Bisacodyl (Dulcolax) 10 mg PO ASDIRECTED PRN PRN Reason: BOWEL MOVEMENT Celecoxib (Celebrex) 200 mg PO DAILY@0800 [facility] Last Admin: 05/21/17 08:22 Dose: 200 mg Cyclobenzaprine HCl (Flexeril) 10 mg PO Q6H [facility] Last Admin: 02/19/18 04:35 Dose: 10 mg Diphenhydramine HCl (Benadryl) 25 mg PO Q6H [facility] Last Admin: 05/21/17 04:35 Dose: 25 mg Enoxaparin Sodium (Lovenox) 40 mg SUBCUT DAILY [facility] Last Admin: 05/21/17 08:28 Dose: 40 mg Famotidine (Pepcid) 20 mg PO BID [facility] Last Admin: 05/21/17 08:22 Dose: 20 mg Haloperidol (Haldol) 5 mg PO Q4H PRN PRN Reason: Agitation Hydroxyzine HCl (Vistaril) 100 mg IM Q4H PRN PRN Reason: PAIN Last Admin: 05/19/17 21:25 Dose: 100 mg Hydroxyzine HCl (Atarax) 100 mg PO Q4H PRN PRN Reason: PAIN Last Admin: 05/20/17 11:15 Dose: 100 mg Nicotine (Habitrol) 21 mg TRDERM DAILY [facility] Last Admin: 05/21/17 08:26 Dose: 21 mg Verify Scop Patch 0 each TOP DAILY [facility] Last Admin: 05/21/17 08:25 Dose: Not Given Oxycodone/Acetaminophen (Percocet 325-10 Mg) 0 tab PO Q4H PRN PRN Reason: PAIN Last Admin: 05/21/17 08:23 Dose: 2 tab Pantoprazole Sodium (Protonix) 40 mg PO ACBREAKFAST [facility] Last Admin: 05/21/17 08:22 Dose: 40 mg Senna/Docusate Sodium (Senna Plus) 2 tab PO BID [facility] Last Admin: 05/21/17 08:24 Dose: 2 tab Topiramate (Topamax) 100 mg PO BID [facility] Last Admin: 05/21/17 08:23 Dose: 100 mg Discontinued Medications Acetaminophen (Tylenol Extra Strength) 1,000 mg PO ONETIME ONE Stop: 05/15/17 05:31 Last Admin: 05/15/17 06:09 Dose: 1,000 mg Acetaminophen (Tylenol Extra Strength) 1,000 mg PO Q6H [facility] Last Admin: 05/16/17 13:46 Dose: 1,000 mg Acetaminophen/Aspirin/Caffeine (Excedrin Extra Strength) 2 tab PO ONETIME ONE Stop: 05/17/17 08:41 Last Admin: 05/17/17 08:52 Dose: 2 tab Bisacodyl (Dulcolax) 20 mg PO BID [facility] Last Admin: 05/19/17 08:28 Dose: Not Given Cyclobenzaprine HCl (Flexeril) 10 mg PO Q6H PRN PRN Reason: MUSCLE SPASM Last Admin: 05/17/17 00:30 Dose: 10 mg Dexamethasone (Dexamethasone) Confirm Administered Dose 4 mg .ROUTE .STK-MED ONE Stop: 05/15/17 07:05 Fentanyl (Sublimaze) Confirm Administered Dose 250 mcg .ROUTE .STK-MED ONE Stop: 05/15/17 07:47 Fentanyl (Sublimaze) Confirm Administered Dose 250 mcg .ROUTE .STK-MED ONE Stop: 05/15/17 07:50 Fentanyl (Sublimaze) Confirm Administered Dose 250 mcg .ROUTE .STK-MED ONE Stop: 05/15/17 08:11 Fentanyl (Sublimaze) Confirm Administered Dose 250 mcg .ROUTE .STK-MED ONE Stop: 05/15/17 08:41 Fentanyl (Sublimaze) Confirm Administered Dose 100 mcg .ROUTE .STK-MED ONE Stop: 05/15/17 09:45 Fentanyl (Duragesic) 25 mcg TRDERM Q72H [facility] Last Admin: 05/17/17 08:55 Dose: 25 mcg Furosemide (Lasix) 20 mg PO ONETIME ONE Stop: 05/20/17 09:01 Last Admin: 05/20/17 09:12 Dose: 20 mg Gabapentin (Neurontin) 300 mg PO ONETIME ONE Stop: 05/15/17 05:31 Last Admin: 05/15/17 06:09 Dose: 300 mg Gabapentin (Neurontin) 300 mg PO TID [facility] Last Admin: 05/15/17 16:09 Dose: Not Given Glycopyrrolate () Confirm Administered Dose 1 mg .ROUTE .STK-MED ONE Stop: 05/15/17 07:05 Hydromorphone HCl (Dilaudid Coremaker Apprentice 15 Mg In Ns 30 Ml) 0 mg IV ASDIRECTED PRN; Protocol PRN Reason: Pain Last Admin: 05/16/17 03:48 Dose: 15 mg Hydromorphone HCl (Dilaudid) 2 - 4 mg PO Q4H PRN PRN Reason: Pain Last Admin: 05/17/17 05:11 Dose: 4 mg Hydromorphone HCl (Dilaudid Coremaker Apprentice 15 Mg In Ns 30 Ml) 0 mg IV ASDIRECTED PRN; Protocol PRN Reason: Pain Last Admin: 05/19/17 10:02 Dose: 15 mg Clindamycin Phosphate 900 mg/ (Sodium Chloride) 106 mls @ 212 mls/hr IV ONETIME ONE Stop: 05/15/17 06:29 Last Admin: 05/15/17 08:00 Dose: 212 mls/hr Lactated Ringer's (Ringers, Lactated) 1,000 mls @ 0 mls/hr IV ASDIRECTED SAVANNAH PRN Reason: KVO Last Admin: 05/15/17 06:11 Dose: 25 mls/hr Tranexamic Acid 930 mg/ Sodium (Chloride) 59.3 mls @ 237.2 mls/hr IV Q3H [facility] Stop: 05/15/17 10:49 Last Admin: 05/15/17 10:15 Dose: 237.2 mls/hr Ketamine HCl 100 mg/ Sodium (Chloride) 100 mls @ 21.93 mls/hr IV ASDIRECTED SAVANNAH PRN Reason: 5 MCG/KG/MIN Stop: 05/15/17 09:35 Linezolid (Zyvox) Confirm Administered Dose 100 mls @ as directed .ROUTE .STK- MED ONE Stop: 05/15/17 06:34 Lactated Ringer's (Ringers, Lactated) Confirm Administered Dose 1,000 mls @ as directed .ROUTE .STK-MED ONE Stop: 05/15/17 08:39 Dextrose/Lactated Ringer's (Dextrose 5%-Lactated Ringers) 1,000 mls @ 175 mls/ hr IV ASDIRECTED [facility] Last Admin: 05/16/17 06:07 Dose: 175 mls/hr Clindamycin Phosphate 900 mg/ (Sodium Chloride) 106 mls @ 212 mls/hr IV Q8H [facility] Stop: 05/16/17 08:29 Last Admin: 05/16/17 07:25 Dose: 212 mls/hr Dextrose/Lactated Ringer's (Dextrose 5%-Lactated Ringers) 1,000 mls @ 100 mls/ hr IV ASDIRECTED [facility] Last Admin: 05/17/17 00:56 Dose: 100 mls/hr Sodium Chloride (Normal Saline) 500 mls @ 25 mls/hr IV ONETIME ONE Stop: 05/18/17 18:58 Last Admin: 05/17/17 23:14 Dose: 25 mls/hr Sodium Chloride (Normal Saline) 81 mls @ 4 mls/sec IV ASDIRECTED STA Stop: 05/18/17 00:59 Last Admin: 05/18/17 01:18 Dose: 4 mls/sec Dextrose/Lactated Ringer's (Dextrose 5%-Lactated Ringers) 1,000 mls @ 100 mls/ hr IV ASDIRECTED SAVANNAH Last Admin: 05/19/17 03:24 Dose: 100 mls/hr Lactated Ringer's (Ringers, Lactated) 500 mls @ 500 mls/hr IV .BOLUS SAVANNAH Last Admin: 05/18/17 16:18 Dose: 500 mls/hr Potassium Phosphate 20 mmole/ (Sodium Chloride) 256.6667 mls @ 86 mls/hr IV Q3H SAVANNAH Stop: 05/19/17 18:59 Last Admin: 05/19/17 17:46 Dose: Not Given Iopamidol (Isovue-300 (61%)) 135 ml IV . DIRECTED STA Stop: 05/18/17 00:58 Last Admin: 05/18/17 01:17 Dose: 150 ml Ketamine HCl (Ketalar) 36 mg IV ONETIME ONE Stop: 05/15/17 07:36 Last Admin: 05/15/17 13:34 Dose: Not Given Labetalol HCl (Normodyne) Confirm Administered Dose 20 mg .ROUTE .STK-MED ONE Stop: 05/15/17 09:15 Linezolid (Zyvox) 200 mg IRR .STK-MED ONE Stop: 05/15/17 09:01 Last Admin: 05/15/17 09:00 Dose: 200 mg Lorazepam (Ativan) 0.5 - 1 mg IVPUSH Q2H PRN PRN Reason: Nausea Last Admin: 05/19/17 14:55 Dose: 1 mg Methylprednisolone Sodium Succinate (Solu-Medrol) 80 mg IVPUSH Q8H SAVANNAH Last Admin: 05/19/17 09:48 Dose: 80 mg Metoclopramide HCl (Reglan) 10 mg IV Q6H PRN PRN Reason: Nausea Last Admin: 05/18/17 01:44 Dose: 10 mg Naloxone HCl (Narcan) 0.1 mg IVPUSH Q5M PRN PRN Reason: Respiratory Distress Naloxone HCl (Narcan) 0.1 mg IV ASDIRECTED PRN PRN Reason: decreased respiratory rate Neostigmine Methylsulfate (Neostigmine) Confirm Administered Dose 5 mg .ROUTE .STK-MED ONE Stop: 05/15/17 07:05 Fentanyl Patch Check 1 each TOP BID [facility] Last Admin: 05/19/17 08:26 Dose: Not Given Ondansetron HCl (Zofran) Confirm Administered Dose 4 mg .ROUTE .STK-MED ONE Stop: 05/15/17 07:05 Ondansetron HCl (Zofran) 4 mg IV Q4H PRN PRN Reason: N/V Last Admin: 05/18/17 08:33 Dose: 4 mg Oxycodone/Acetaminophen (Percocet 325-5 Mg) 1 - 2 tab PO Q4H PRN PRN Reason: Pain Last Admin: 05/16/17 18:17 Dose: 2 tab Pantoprazole Sodium (Protonix Iv) 40 mg IV Q24H [facility] Last Admin: 05/16/17 13:46 Dose: 40 mg Potassium Chloride (Klor-Con M20) 40 meq PO ONETIME ONE Stop: 05/20/17 09:01 Last Admin: 05/20/17 09:12 Dose: 40 meq Povidone Iodine (Betadine 10% Soln) Confirm Administered Dose 1 ml .ROUTE .STK- MED ONE Stop: 05/15/17 06:34 Propofol (Diprivan 20 Ml) Confirm Administered Dose 200 mg .ROUTE .STK-MED ONE Stop: 05/15/17 07:05 Propofol (Diprivan 20 Ml) Confirm Administered Dose 400 mg .ROUTE .STK-MED ONE Stop: 05/15/17 07:50 Propofol (Diprivan 20 Ml) Confirm Administered Dose 400 mg .ROUTE .STK-MED ONE Stop: 05/15/17 08:34 Rocuronium Walsh (Zemuron) Confirm Administered Dose 50 mg .ROUTE .STK-MED ONE Stop: 05/15/17 07:05 Scopolamine (Transderm-Scop) 1.5 mg TOP Q72H [facility] Last Admin: 05/18/17 08:25 Dose: 1.5 mg Sodium Chloride (Saline Flush) 10 ml IV ASDIRECTED [facility] Last Admin: 05/18/17 08:26 Dose: 10 ml Succinylcholine Chloride (Succinylcholine In Ns Pf) Confirm Administered Dose 200 mg .ROUTE .STK-MED ONE Stop: 05/15/17 07:05 Thrombin (Thrombin-Jmi) Confirm Administered Dose 15,000 unit .ROUTE .STK-MED ONE Stop: 05/15/17 06:34 Topiramate (Topamax) Confirm Administered Dose 100 mg .ROUTE .STK-MED ONE Stop: 05/15/17 22:58 Last Admin: 05/15/17 23:02 Dose: Not Given Topiramate (Topamax) Confirm Administered Dose 25 mg .ROUTE .STK-MED ONE Stop: 05/15/17 23:04 Last Admin: 05/15/17 23:09 Dose: Not Given *Q Meaningful Use (DIS) - VTE *Q VTE Criteria *Q: - Stroke *Q Stroke Criteria *Q: - AMI *Q AMI Criteria *Q:
--- NOTE | 2017-05-22 08:41 | PN ---
DATE OF SERVICE: 05/17/2017 The patient has been afebrile with stable vital signs. No major problems have been noted, other than he has very poor pain control at this point. We will add a fentanyl patch and move his Percocet up to 10/325, 1-2 tabs q.4 hours p.r.n. and get rid of the Dilaudid. We will also add Celebrex and a fentanyl patch. We will get him on continuous pulse ox for today, given the use of fentanyl patch, and he may be ready for discharge home tomorrow. Burke Gomez MD /[id number]
--- NOTE | 2017-05-22 09:00 | PN ---
DATE OF SERVICE: 05/19/2017 The patient has been afebrile with stable vital signs. He continues to have some swelling in the lower trunk, scrotal area, and legs, especially the thighs, this is symmetrical. The vascular workup for any DVT appears to be negative as we have not seen anything on the duplex scan of the legs or within the pelvis or vena cava, and likewise nothing seen on the CT scan with IV contrast. This may be some sort of allergic reaction. I think we will give him a course of Solu-Medrol 80 mg q.8 hours starting today, and we will discontinue the fentanyl patch, as he is reported to have some problems with swelling and such. Will consult Dr. Wilson also regarding this issue. He has bowels, so we will get him back on regular diet. I think we will leave the JR. JAVA DEVELOPER going for today, and his potassium is marginally low, so we will give him some potassium phosphate today. Burke Gomez MD /[id number]
--- NOTE | 2017-05-23 09:40 | OR ---
DATE OF PROCEDURE: 05/15/2017 PREOPERATIVE DIAGNOSIS: Lumbar degenerative disk disease and stenosis at L5-S1 level. POSTOPERATIVE DIAGNOSES: 1. Lumbar degenerative disk disease and stenosis, L5-S1 level. 2. Intraoperative laceration of left common iliac vein. 3. Avulsion of lymphatic branch just below the junction of the inferior vena cava and left iliac vein. PROCEDURES: 1. Anterior lumbar interspinous fusion, L5-S1 (95172-46). 2. Lateral repair of left common iliac vein (00842). 3. Ligation of lymphatic duct overlying junction of the left common iliac vein and vena cava (12251). ANESTHESIA: General. CO-SURGEON: Paulo Gomez DO. INDICATION FOR PROCEDURE: This is a 37-year-old, presenting for an anterior lumbar interspinous fusion. Potential risks of procedure were reviewed with the patient, both preoperatively at the time of consultation, as well as this morning, including bleeding, infection, possible vascular injury with occlusion and/or massive bleeding potentially from either the arterial or venous circuits, injury to other viscera such as ureter and bowel, as well as remote possibility of cardiopulmonary, septic, or hemorrhagic complications leading to were discussed, and the patient wishes to proceed. DESCRIPTION OF PROCEDURE: The patient was taken to the operating room and placed in a supine position. After general endotracheal anesthesia was induced, a roll was placed underneath the left knee, and a Burns catheter was inserted and the abdomen was prepped and draped. A left paramedian incision from the umbilicus downward was then made and carried down through the skin and subcutaneous tissue and through the anterior rectus sheath. The rectus muscle was then dissected free from that point laterally and then retracted medially. Further dissection into the retroperitoneum laterally and then posteriorly was then accomplished. This allowed dissection of the peritoneum, including elevation of the ureter and the neural plexus, along with the peritoneum, and during the course of this dissection, the patient was noted to have some white lymphatic drainage coming from the lymphatic duct just below the inferior vena cava. This was ligated with a 5-0 Kennedy-Javier stitch. No further lymphatic drainage was noted for the duration of the procedure. As one dissected the left common iliac vein, it was eventually freed up enough such that the lateral aspect of the anterior interspace was adequately controlled. The middle sacral vein and artery were then divided with Harmonic scalpel, and the right iliac vein and artery were then retracted rightward. At that point, the retractors were placed, and adequate exposure appeared to be present. A needle was placed in the interspace, and radiologic confirmation was accomplished showing the correct interspace had been identified and exposed. Dr. Paulo Gomez then completed the orthopedic part of the procedure. During the course of that procedure, a small laceration was noted in the medial aspect of the left common iliac vein just above the retractor site, and this was closed laterally with a [id number] stitch of 5-0 Kennedy-Javier stitch. At that point, after the orthopedic procedure had been completed, the retractors were eventually released, and the patient was noted to have adequate blood flow through the right and left iliac arteries and veins by Doppler and subsequently noted to have good pulses in both feet. Some FloSeal was then placed over the vascular repair, as well as the implant site with removal of retractors, and the anterior rectus sheath was closed with a running #2 Vicryl stitch. The subcutaneous tissue was drained with a 10-Chinese round Sarath-Ross drain brought out through a stab wound superior to the main incision. The incision was then closed with 2 layers of 3-0 Vicryl stitch deep and vale for the skin. The drain was affixed with 3-0 Vicryl stitch as well. The patient was taken to recovery room in satisfactory condition. There were no evident complications. Burke Gomez MD /[id number]
== END 2017-05-21 09:42 | disposition home or self-care (01) | DRG 460 ==
LOC: JP.SDSSCHI 05:20 → JP.SDS 05:20 → EDSTATUS 07:30 → JP.MS 11:18
PROVIDERS: ADMIT Orthopaedic Surgery; ATTEND Surgery
PROC: 0SG03A0 Fusion of Lumbar Vertebral Joint with Interbody Fusion Device, Anterior Approach, Anterior Column, Percutaneous Approach (ICD-10-PCS; principal; 2017-05-15)
PROC: 0ST20ZZ Resection of Lumbar Vertebral Disc, Open Approach (ICD-10-PCS; 2017-05-15)
DX: M48.061 Spinal stenosis, lumbar region without neurogenic claudication (principal); G89.29 Other chronic pain; M51.36 Other intervertebral disc degeneration, lumbar region; G43.909 Migraine, unspecified, not intractable, without status migrainosus; F31.9 Bipolar disorder, unspecified; F17.210 Nicotine dependence, cigarettes, uncomplicated; M79.89 Other specified soft tissue disorders; N50.89 Other specified disorders of the male genital organs; T78.3XXA Angioneurotic edema, initial encounter; T40.4X5A Adverse effect of other synthetic narcotics, initial encounter; Y92.239 Unspecified place in hospital as the place of occurrence of the external cause; R45.1 Restlessness and agitation; F19.959 Other psychoactive substance use, unspecified with psychoactive substance-induced psychotic disorder, unspecified
CPT/HCPCS: 36415; 74177; 76001; 80048; 80053; 83735; 84100; 85027; 86850; 86900; 86901; 86920; 86922; 93970; 93970-26; 93976; 93976-26; 94762; 97110-GP; 97162-GP; 97165-GO; 97530-GP; 97535-GP; A9270-GY; C1713; C9113; J1100; J1170; J1650; J2020; J2060; J2405; J2704; J2765; J2930; J3010; J3410; J3490; J7030; J7040; J7042; J7050; J7120; S0077

== ENCOUNTER 2017-06-09 18:14 | Emergency (ER) | payer MEDICAID ==
--- NOTE | 2017-06-09 20:14 | EDM.PDOC ---
ED HPI GENERAL MEDICAL PROBLEM - General Chief Complaint: Wound Recheck Stated Complaint: INFECTION/INCISION Time Seen by Provider: 06/09/17 20:06 Source of Information: Reports: Patient, Family, RN Notes Reviewed History Limitations: Reports: No Limitations - History of Present Illness INITIAL COMMENTS - FREE TEXT/NARRATIVE: 37-year-old gentleman presents emergency department today concern about wound infection, he recently underwent lumbar surgery mid May states is been doing well slow recovery of the wound is been doing well however the last 24 hours he's had increasing pain increased warmth over the wound no fevers Left lower abdomen Pain Score (Numeric/FACES): 6 - Related Data Allergies Allergy/AdvReac Type Severity Reaction Status Date / Time amoxicillin Allergy Hives Verified 06/09/17 19:56 ampicillin Allergy Other Verified 06/09/17 19:56 erythromycin base Allergy Hives Verified 06/09/17 19:56 Penicillins Allergy Hives Verified 06/09/17 19:56 Home Meds: Home Meds SUMAtriptan [Imitrex] 25 mg PO Q6H PRN 04/17/17 [History] Topiramate [Topamax] 100 mg PO BID 04/17/17 [History] Acetaminophen/oxyCODONE [Percocet 325-10 MG] 1 tab PO Q4H PRN #40 tablet [Rx] Bisacodyl [Dulcolax] 10 mg PO DAILY #30 tablet 05/21/17 [Rx] Cyclobenzaprine [Flexeril] 10 mg PO Q6H #40 tablet 05/21/17 [Rx] Past Medical History HEENT History: Reports: Impaired Vision Musculoskeletal History: Reports: Back Pain, Chronic Neurological History: Reports: Migraines Psychiatric History: Reports: Anxiety, Bipolar, Depression, Panic Attack Hematologic History: Reports: Blood Transfusion(s) - Infectious Disease History Infectious Disease History: Reports: Chicken Pox - Past Surgical History HEENT Surgical History: Reports: Oral Surgery, Other (See Below) Other HEENT Surgeries/Procedures: eye surgery Neurological Surgical History: Reports: Lumbar Spine, Other (See Below) Other Neurological Surgeries/Procedures: ALIF 05/15/17 Musculoskeletal Surgical History: Reports: Shoulder Surgery, Other (See Below) Other Musculoskeletal Surgeries/Procedures:: low back surgery x1, rods in bilateral femur Social & Family History - Tobacco Use Smoking Status *Q: Former Smoker Years of Tobacco use: 20 Packs/Tins Daily: 0.5 Used Tobacco, but Quit: Yes Month Tobacco Last Used: may Second Hand Smoke Exposure: Yes - Caffeine Use Caffeine Use: Reports: Coffee - Recreational Drug Use Recreational Drug Use: No ED ROS GENERAL - Review of Systems Review Of Systems: See Below Constitutional: Denies: Fever, Chills HEENT: Reports: No Symptoms Respiratory: Reports: No Symptoms Cardiovascular: Reports: No Symptoms GI/Abdominal: Reports: No Symptoms Skin: Reports: Pallor, Erythema, Wound ED EXAM, GENERAL - Physical Exam Exam: See Below Free Text/Narrative:: Examination of the surgical wound is clean and dry there is an erythematous area about the size of a baseball mid part of the wound it is warm to touch and tender to the touch Exam Limited By: No Limitations General Appearance: Alert, WD/WN, No Apparent Distress Course - Vital Signs Last Recorded V/S: Last Vital Signs Temp 97.3 F 06/09/17 19:50 Pulse 92 06/09/17 19:50 Resp 16 06/09/17 19:50 BP 136/84 06/09/17 19:50 Pulse Ox 97 06/09/17 19:50 - Orders/Labs/Meds Labs: Laboratory Tests 06/09/17 06/09/17 06/09/17 Range/Units 20:10 20:10 20:10 WBC 10.9 (4.5-11.0) K/uL RBC 4.67 (4.30-5.90) M/uL Hgb 13.9 D (12.0-15.0) g/dL Hct 40.1 (40.0-54.0) % MCV 86 (80-98) fL MCH 30 (27-31) pg MCHC 35 (32-36) % Plt Count 309 (150-400) K/uL Neut % (Auto) 65 (36-66) % Lymph % (Auto) 27 (24-44) % Stanley % (Auto) 7 H (2-6) % Eos % (Auto) 2 (2-4) % Baso % (Auto) 0 (0-1) % Sodium 141 (140-148) mmol/L Potassium 3.6 (3.6-5.2) mmol/L Chloride 108 (100-108) mmol/L Carbon Dioxide 21 (21-32) mmol/L Anion Gap 12.5 (5.0-14.0) mmol/L BUN 17 (7-18) mg/dL Creatinine 1.0 (0.8-1.3) mg/dL Est Cr Clr Drug Dosing 107.72 mL/min Estimated GFR (MDRD) > 60 (>60) Glucose 119 H (74-106) mg/dL Lactic Acid 1.3 (0.4-2.0) mmol/L Calcium 9.8 (8.5-10.1) mg/dL Total Bilirubin 0.3 (0.2-1.0) mg/dL AST 14 L (15-37) U/L ALT 24 (12-78) U/L Alkaline Phosphatase 108 (46-116) U/L Total Protein 7.6 (6.4-8.2) g/dL Albumin 3.8 (3.4-5.0) g/dL Globulin 3.8 H (2.3-3.5) g/dL Albumin/Globulin Ratio 1.0 L (1.2-2.2) Departure - Departure Time of Disposition: 21:15 Disposition: Home, Self-Care 01 Condition: Good Clinical Impression: Cellulitis Qualifiers: Site of cellulitis: trunk Site of cellulitis of trunk: abdominal wall Qualified Code(s): L03.311 - Cellulitis of abdominal wall - Discharge Information Referrals: PCP,None [Primary Care Provider] - Forms: ED Department Discharge Additional Instructions: Take full course of antibiotics, Please followup with your primary care provider in 3-5 days if not better, please call return to the emergency department with worsening of symptoms. - Assessment/Plan Plan: Assessment Acuity = acute Site and laterality = local wound infection Etiology = suspicious for bacterial cause Manifestations = none Location of injury = Home Lab values = CBC, CMP unremarkable lactic acid within normal limits Plan Called discussed case with Dr. Gomez general surgery recommended antibiotics of Bactrim DS one tab by mouth twice a day 10 days he will follow-up with Dr. Gomez at 9:00 on Sunday This note was dictated using [employer] voice recognition software please call with any questions on syntax or christian.
== END 2017-06-09 21:46 | disposition home or self-care (01) ==
LOC: JP.ED 18:14
DX: L03.311 Cellulitis of abdominal wall (principal); F31.9 Bipolar disorder, unspecified; Z87.891 Personal history of nicotine dependence; Z79.899 Other long term (current) drug therapy; Z88.0 Allergy status to penicillin; Z88.1 Allergy status to other antibiotic agents
CPT/HCPCS: 36415; 80053; 83605; 85025; 99284

== ENCOUNTER 2019-02-07 08:31 | Emergency (ER) | payer MEDICAID ==
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
== END 2019-02-07 17:16 ==
LOC: JP.ED 08:31
DX: T42.6X2A Poisoning by other antiepileptic and sedative-hypnotic drugs, intentional self-harm, initial encounter (principal); F32.9 Major depressive disorder, single episode, unspecified; F41.9 Anxiety disorder, unspecified; F17.210 Nicotine dependence, cigarettes, uncomplicated; Z88.8 Allergy status to other drugs, medicaments and biological substances; Z88.0 Allergy status to penicillin; Z88.1 Allergy status to other antibiotic agents
CPT/HCPCS: 36415; 80305-QW; 99285; G0480

== ENCOUNTER 2021-03-20 10:37 | Emergency (ER) | payer MEDICAID | END 2021-03-20 11:10 | disposition left against medical advice (07) | LOC: JP.ED 10:37 | DX: Z53.21 Procedure and treatment not carried out due to patient leaving prior to being seen by health care provider (principal) ==

== ENCOUNTER 2021-05-18 18:45 | Emergency (ER) | payer MEDICAID | END 2021-05-18 19:35 | disposition left against medical advice (07) | LOC: JP.ED 18:45 | DX: R51.9 Headache, unspecified (principal); Z53.21 Procedure and treatment not carried out due to patient leaving prior to being seen by health care provider ==

== ENCOUNTER 2021-06-11 08:14 | Emergency (ER) | payer MEDICAID ==
[2021-06-11 09:28] LABS: CORONAVIRUS COVID-19 NAA NEGATIVE (NEGATIVE)
[2021-06-11] MEDS ORDERED: hydrOXYzine HCl 25 MG Tab PO ONE (11:03)
[2021-06-11] MEDS ORDERED: Ketamine 500 MG/5 ML MDV IM ONE (16:34)
[2021-06-11] MEDS ORDERED: Haloperidol 5 MG Tab PO ONE (21:00)
[2021-06-11] MEDS: Melatonin 3 MG Tab PO SCH (21:32)
[2021-06-12] MEDS ORDERED: diphenhydrAMINE 25 MG Cap PO ONE ×2 (14:55→21:00)
[2021-06-12] MEDS ORDERED: Haloperidol 5 MG Tab PO ONE (14:56)
[2021-06-12] MEDS: Melatonin 3 MG Tab PO SCH (20:22)
[2021-06-12] MEDS ORDERED: Haloperidol 5 MG Tab PO SCH (21:00)
[2021-06-13] MEDS ORDERED: DULoxetine 30 MG Cap PO SCH (09:45)
[2021-06-13] MEDS ORDERED: cloNIDine 0.1 MG Tab PO SCH ×2 (09:45→10:00)
[2021-06-13] MEDS ORDERED: busPIRone 5 MG Tab PO SCH ×2 (10:00)
[2021-06-13] MEDS: busPIRone 5 MG Tab PO SCH ×2 (10:04→15:27)
[2021-06-13] MEDS ORDERED: busPIRone 10 MG Tab PO SCH (14:00)
== END 2021-06-13 16:15 | disposition home or self-care (01) ==
LOC: JP.ED 08:14
DX: F32.A Depression, unspecified (principal); F41.9 Anxiety disorder, unspecified; R45.4 Irritability and anger; Z20.822 Contact with and (suspected) exposure to COVID-19; Z72.0 Tobacco use
CPT/HCPCS: 0241U; 36415; 80053; 80143; 80179; 80305-QW; 80307; 81001; 84443; 85025; 96372; 99283; 99284; A9270-GY

== ENCOUNTER 2022-11-17 13:59 | Emergency (ER) | payer MEDICAID ==
[2022-11-17] MEDS ORDERED: Sodium Chloride 0.9% 10 ML Syringe FLUSH PRN (14:17)
[2022-11-17 14:25] LABS: BASOPHILS ABSOLUTE AUTO 0.08 K/uL (0.00-0.10); BASOPHILS PERCENT AUTO 0.5 % (0.1-1.3); EOSINOPHILS PERCENT AUTO 0.1 % (0.0-5.4); HEMATOCRIT 44.6 % (38.4-49.7); HEMOGLOBIN 15.9 g/dL (12.9-16.9); IMMATURE GRAN ABSOLUTE AUTO 0.06 K/uL (0.00-0.23); IMMATURE GRAN PERCENT AUTO 0.4 % (0.0-0.7); LYMPHOCYTES ABSOLUTE AUTO 3.31 K/uL (0.8-3.3); LYMPHOCYTES PERCENT AUTO 20.6 % (11.4-47.7); MEAN CORPUSCULAR HEMOGLOBIN 30.8 pg (31.6-35.5); MEAN CORPUSCULAR HGB CONC 35.7 g/dL (31.6-35.5); MEAN CORPUSCULAR VOLUME 86.4 fL (81.4-99.0); MONOCYTES PERCENT AUTO 6.2 % (3.3-12.6); NEUTROPHILS ABSOLUTE AUTO 11.57 K/uL (1.0-7.6); NEUTROPHILS PERCENT AUTO 72.2 % (40.0-78.1); PLATELET COUNT,PLT 332 K/uL (130-375); RED BLOOD CELL COUNT 5.16 M/uL (4.14-5.76)
[2022-11-17] MEDS ORDERED: Sodium Chloride 0.9% 1,000 ML IV SCH ×2 (14:30→14:45)
[2022-11-17 14:34] LABS: EOSINOPHILS ABSOLUTE AUTO 0.02 K/uL (0.00-0.40)
[2022-11-17 14:35] LABS: PROTHROMBIN TIME 10.4 sec (9.2-10.6); PTT,PARTIAL THROMBOPLSTIN TIME 26.2 sec (21.8-27.3)
[2022-11-17] MEDS ORDERED: Ondansetron 4 MG/2 ML SDV IVPUSH ONE (14:42)
[2022-11-17] MEDS ORDERED: HYDROmorphone 0.5 MG/0.5 ML Syringe IVPUSH ONE ×2 (14:43→16:01)
[2022-11-17] MEDS ORDERED: Naloxone 0.4 MG/ML SDV IVPUSH PRN (14:43)
[2022-11-17 14:45] LABS: A/G RATIO 1.2 (1.2-2.2); ALANINE AMINOTRANSFERASE,ALT 34 U/L (12-78); ALBUMIN 4.5 g/dL (3.4-5.0); ALKALINE PHOSPHATASE 137 U/L (46-116); ANION GAP 19.4 mmol/L (5.0-14.0); ASPARTATE AMNIOTRANSFERASE,AST 26 U/L (15-37); BILIRUBIN TOTAL 0.7 mg/dL (0.2-1.0); BLOOD UREA NITROGEN,BUN 11 mg/dL (7-18); CALCIUM 10.9 mg/dL (8.5-10.1); CARBON DIOXIDE,CO2 23 mmol/L (21-32); CHLORIDE,CL 99 mmol/L (100-108); CREATININE 1.1 mg/dL (0.8-1.3); EST CRCL DRUG DOSING (CG) 90.33 mL/min; ESTIMATED GFR 86 mL/min (>60); GLUCOSE RANDOM 112 mg/dL (74-106); POTASSIUM,K 3.4 mmol/L (3.6-5.2); PROTEIN TOTAL,TP 8.4 g/dL (6.4-8.2); SODIUM,NA 138 mmol/L (140-148); TSH ULTRASENSITIVE 1.703 uIU/mL (0.358-3.740)
[2022-11-17 15:08] LABS: APPEARANCE,URINE CLEAR (CLEAR); BILIRUBIN,URINE NEGATIVE (NEGATIVE); COLOR,URINE YELLOW (YELLOW); GLUCOSE,URINE NEGATIVE (NEGATIVE); KETONES,URINE NEGATIVE (NEGATIVE); LEUKOCYTE ESTERASE,URINE NEGATIVE (NEGATIVE); NITRITE,URINE NEGATIVE (NEGATIVE); OCCULT BLOOD,URINE TRACE-INTACT (NEGATIVE); PH,URINE 8.5 (5.0-8.0); PROTEIN,URINE >=300 mg/dL (NEGATIVE); UROBILINOGEN,URINE 0.2 EU/dL (0.2-1.0)
[2022-11-17] MEDS ORDERED: Iopamidol 612 MG/ML 100 ML Bottle IV SCH (15:15)
[2022-11-17] MEDS ORDERED: Sodium Chloride 0.9% 50 ML IV SCH (15:15)
[2022-11-17 15:18] LABS: AMPHETAMINES SCREEN, URINE NEGATIVE (NEGATIVE); BARBITURATE SCREEN,URINE NEGATIVE (NEGATIVE); BENZODIAZEPINES SCREEN,URINE NEGATIVE (NEGATIVE); METHADONE SCREEN, URINE NEGATIVE (NEGATIVE); METHAMPHETAMINES SCREEN, URINE NEGATIVE (NEGATIVE); OXYCODONE SCREEN,URINE NEGATIVE (NEGATIVE); PROPOXYPHENE SCREEN,URINE NEGATIVE (NEGATIVE); THC SCREEN,URINE 50 NG/ML PRESUMPTIVE POSITIVE (NEGATIVE)
[2022-11-17 15:20] LABS: AMORPHOUS SEDIMENT,URINE NOT SEEN; BACTERIA,URINE RARE; EPITHELIAL CELLS,URINE NOT SEEN; MUCUS,URINE NOT SEEN; WBC,URINE 0-5 (0-5)
[2022-11-17] MEDS ORDERED: hydrOXYzine HCL 100 MG/2 ML SDV IM ONE (16:01)
[2022-11-17] MEDS ORDERED: Ketorolac 30 MG/ML SDV IVPUSH ONE (16:01)
[2022-11-17] MEDS ORDERED: Diphtheria,Pertussis(Acell),Tetanus Vaccine 0.5 ML Syringe IM ONE (16:11)
== END 2022-11-17 18:55 | disposition home or self-care (01) ==
LOC: JP.ED 13:59
DX: T67.5XXA Heat exhaustion, unspecified, initial encounter (principal); J45.909 Unspecified asthma, uncomplicated; F17.210 Nicotine dependence, cigarettes, uncomplicated; Z88.0 Allergy status to penicillin; Z88.1 Allergy status to other antibiotic agents; Z88.8 Allergy status to other drugs, medicaments and biological substances
CPT/HCPCS: 36415; 71045; 74177; 80053; 80305; 81001; 83605; 83735; 84443; 84484; 85025; 85610; 85730; 87040; 93005; 96361; 96372; 96374; 96375; 96376; 99284; J1170; J1885; J2405; J3410; J3490; J7030; Q9967

== ENCOUNTER 2023-01-08 11:44 | Emergency (ER) | payer MEDICAID | END 2023-01-08 14:31 | disposition home or self-care (01) | LOC: JP.ED 11:44 | DX: F32.A Depression, unspecified (principal); J45.909 Unspecified asthma, uncomplicated; F17.210 Nicotine dependence, cigarettes, uncomplicated; Z88.8 Allergy status to other drugs, medicaments and biological substances; Z88.0 Allergy status to penicillin; Z88.1 Allergy status to other antibiotic agents | CPT/HCPCS: 99284 ==

== ENCOUNTER 2023-01-10 02:54 | Emergency (ER) | payer MEDICAID ==
[2023-01-10] MEDS: Ketorolac 30 MG/ML SDV IM ONE (03:23)
[2023-01-10] MEDS: Methocarbamol 500 MG Tab PO ONE (03:25)
== END 2023-01-10 03:45 | disposition home or self-care (01) ==
LOC: JP.ED 02:54
DX: K04.7 Periapical abscess without sinus (principal); M43.6 Torticollis; R22.0 Localized swelling, mass and lump, head; J45.909 Unspecified asthma, uncomplicated; F17.210 Nicotine dependence, cigarettes, uncomplicated; Z88.0 Allergy status to penicillin; Z88.8 Allergy status to other drugs, medicaments and biological substances
CPT/HCPCS: 96372; 99283; A9270; J1885

== ENCOUNTER 2023-05-24 10:02 | Emergency (ER) | payer MEDICAID ==
[2023-05-24 10:50] LABS: AMPHETAMINES SCREEN, URINE NEGATIVE (NEGATIVE); BARBITURATE SCREEN,URINE NEGATIVE (NEGATIVE); BENZODIAZEPINES SCREEN,URINE NEGATIVE (NEGATIVE); METHADONE SCREEN, URINE NEGATIVE (NEGATIVE); METHAMPHETAMINES SCREEN, URINE PRESUMPTIVE POSITIVE (NEGATIVE); OXYCODONE SCREEN,URINE NEGATIVE (NEGATIVE); PROPOXYPHENE SCREEN,URINE NEGATIVE (NEGATIVE); THC SCREEN,URINE 50 NG/ML PRESUMPTIVE POSITIVE (NEGATIVE)
[2023-05-24 13:01] LABS: EOSINOPHILS ABSOLUTE AUTO 0.12 K/uL (0.00-0.40); EOSINOPHILS PERCENT AUTO 1.2 % (0.0-5.4); HEMATOCRIT 45.5 % (38.4-49.7); HEMOGLOBIN 15.8 g/dL (12.9-16.9); IMMATURE GRAN ABSOLUTE AUTO 0.04 K/uL (0.00-0.23); IMMATURE GRAN PERCENT AUTO 0.4 % (0.0-0.7); LYMPHOCYTES ABSOLUTE AUTO 2.67 K/uL (0.8-3.3); LYMPHOCYTES PERCENT AUTO 25.8 % (11.4-47.7); MEAN CORPUSCULAR HEMOGLOBIN 30.3 pg (31.6-35.5); MEAN CORPUSCULAR HGB CONC 34.7 g/dL (31.6-35.5); MEAN CORPUSCULAR VOLUME 87.2 fL (81.4-99.0); MONOCYTES ABSOLUTE AUTO 0.36 K/uL (0.20-0.90); MONOCYTES PERCENT AUTO 3.5 % (3.3-12.6); NEUTROPHILS ABSOLUTE AUTO 7.04 K/uL (1.0-7.6); NEUTROPHILS PERCENT AUTO 68.1 % (40.0-78.1); PLATELET COUNT,PLT 284 K/uL (130-375); RED BLOOD CELL COUNT 5.22 M/uL (4.14-5.76); WHITE BLOOD CELL COUNT,WBC 10.3 K/uL (3.2-11.0)
[2023-05-24 13:21] LABS: ANION GAP 11.2 mmol/L (5.0-14.0); BLOOD UREA NITROGEN,BUN 13 mg/dL (7-18); CALCIUM 10.3 mg/dL (8.5-10.1); CARBON DIOXIDE,CO2 26 mmol/L (21-32); CHLORIDE,CL 103 mmol/L (100-108); EST CRCL DRUG DOSING (CG) 101.45 mL/min; ESTIMATED GFR 96 mL/min (>60); GLUCOSE RANDOM 146 mg/dL (74-106); POTASSIUM,K 3.8 mmol/L (3.6-5.2); SODIUM,NA 140 mmol/L (140-148)
[2023-05-24 13:24] LABS: ACETAMINOPHEN < 0.0 ug/mL (10.0-144.9)
[2023-05-24] MEDS: Melatonin 3 MG Tab PO SCH (19:52)
== END 2023-05-24 20:00 ==
LOC: JP.ED 10:02
DX: R45.851 Suicidal ideations (principal); F32.A Depression, unspecified; F43.10 Post-traumatic stress disorder, unspecified; F63.81 Intermittent explosive disorder; J45.909 Unspecified asthma, uncomplicated; F17.210 Nicotine dependence, cigarettes, uncomplicated; Z88.0 Allergy status to penicillin; Z88.1 Allergy status to other antibiotic agents; Z79.899 Other long term (current) drug therapy
CPT/HCPCS: 36415; 80048; 80143; 80179; 80305; 80307; 85025; 87635; 99285; A9270; U0002

== ENCOUNTER 2023-10-25 18:12 | Emergency (ER) | payer MEDICAID ==
[2023-10-25] MEDS ORDERED: Sodium Chloride 0.9% 10 ML Syringe FLUSH PRN (18:16)
[2023-10-25 18:22] LABS: BASOPHILS ABSOLUTE AUTO 0.09 K/uL (0.00-0.10); BASOPHILS PERCENT AUTO 0.6 % (0.1-1.3); EOSINOPHILS ABSOLUTE AUTO 0.02 K/uL (0.00-0.40); EOSINOPHILS PERCENT AUTO 0.1 % (0.0-5.4); HEMATOCRIT 44.5 % (38.4-49.7); IMMATURE GRAN ABSOLUTE AUTO 0.04 K/uL (0.00-0.23); IMMATURE GRAN PERCENT AUTO 0.3 % (0.0-0.7); LYMPHOCYTES ABSOLUTE AUTO 3.83 K/uL (0.8-3.3); LYMPHOCYTES PERCENT AUTO 24.6 % (11.4-47.7); MEAN CORPUSCULAR VOLUME 83.3 fL (81.4-99.0); MONOCYTES ABSOLUTE AUTO 0.96 K/uL (0.20-0.90); MONOCYTES PERCENT AUTO 6.2 % (3.3-12.6); NEUTROPHILS ABSOLUTE AUTO 10.66 K/uL (1.0-7.6); NEUTROPHILS PERCENT AUTO 68.2 % (40.0-78.1); PLATELET COUNT,PLT 370 K/uL (130-375); RED BLOOD CELL COUNT 5.34 M/uL (4.14-5.76); WHITE BLOOD CELL COUNT,WBC 15.6 K/uL (3.2-11.0)
[2023-10-25 18:41] LABS: PROTHROMBIN TIME 10.4 sec (9.2-10.6)
[2023-10-25 18:44] LABS: ALANINE AMINOTRANSFERASE,ALT 28 U/L (12-78); ALBUMIN 4.4 g/dL (3.4-5.0); ALKALINE PHOSPHATASE 153 U/L (46-116); ASPARTATE AMNIOTRANSFERASE,AST 25 U/L (15-37); BILIRUBIN TOTAL 0.7 mg/dL (0.2-1.0); BLOOD UREA NITROGEN,BUN 17 mg/dL (7-18); CALCIUM 11.4 mg/dL (8.5-10.1); CARBON DIOXIDE,CO2 21 mmol/L (21-32); CHLORIDE,CL 98 mmol/L (100-108); CREATININE 1.2 mg/dL (0.8-1.3); ESTIMATED GFR 77 mL/min (>60); GLUCOSE RANDOM 119 mg/dL (74-106); PROTEIN TOTAL,TP 8.8 g/dL (6.4-8.2); SODIUM,NA 138 mmol/L (140-148); TROPONIN I HIGH SENSITIVITY 5.7 pg/mL (<=60.3)
[2023-10-25] MEDS: Ondansetron 4 MG/2 ML SDV IVPUSH ONE (18:44)
[2023-10-25] MEDS: Sodium Chloride 0.9% 1,000 ML IV ONE (18:44)
[2023-10-25] MEDS: Ketorolac 15 MG/ML SDV IVPUSH ONE (18:44)
[2023-10-25] MEDS: Aspirin 81 MG Tab.Chew PO ONE (18:46)
[2023-10-25] MEDS: Pantoprazole 40 MG Vial IVPUSH ONE (18:46)
[2023-10-25] MEDS: Iopamidol 755 Mg/ML 100 ML Bottle IV SCH (19:46)
[2023-10-25] MEDS: Sodium Chloride 0.9% 100 ML IV SCH (19:46)
[2023-10-25 20:01] LABS: AMPHETAMINES SCREEN, URINE NEGATIVE (NEGATIVE); BARBITURATE SCREEN,URINE NEGATIVE (NEGATIVE); BENZODIAZEPINES SCREEN,URINE NEGATIVE (NEGATIVE); METHADONE SCREEN, URINE NEGATIVE (NEGATIVE); METHAMPHETAMINES SCREEN, URINE NEGATIVE (NEGATIVE); OXYCODONE SCREEN,URINE NEGATIVE (NEGATIVE); PROPOXYPHENE SCREEN,URINE NEGATIVE (NEGATIVE); THC SCREEN,URINE 50 NG/ML PRESUMPTIVE POSITIVE (NEGATIVE)
[2023-10-28 08:32] LABS: PARATHYROID HORMONE,INTACT 21 pg/mL (15-65)
== END 2023-10-25 21:19 | disposition home or self-care (01) ==
LOC: JP.ED 18:12
DX: R07.89 Other chest pain (principal); E83.52 Hypercalcemia; D72.829 Elevated white blood cell count, unspecified; R11.2 Nausea with vomiting, unspecified; R10.11 Right upper quadrant pain; R74.8 Abnormal levels of other serum enzymes; R79.1 Abnormal coagulation profile; Z88.0 Allergy status to penicillin; Z88.1 Allergy status to other antibiotic agents; Z88.8 Allergy status to other drugs, medicaments and biological substances; Z79.899 Other long term (current) drug therapy
CPT/HCPCS: 36415; 71045; 71275; 80053; 80305; 83690; 83970; 84145; 84484; 85025; 85379; 85610; 85730; 86140; 87635; 93005; 96361; 96374; 96375; 99285; A9270; J1885; J2405; J2470; J3490; J7030; Q9967; U0002

== ENCOUNTER 2024-02-19 12:06 | Emergency (ER) | payer MEDICAID | END 2024-02-19 13:31 | disposition left against medical advice (07) | LOC: JP.ED 12:06 | DX: Z53.21 Procedure and treatment not carried out due to patient leaving prior to being seen by health care provider (principal) ==

== ENCOUNTER 2024-04-06 20:36 | Emergency (ER) | payer MEDICAID | END 2024-04-06 21:24 | disposition home or self-care (01) | LOC: JP.ED 20:36 | DX: T81.41XA Infection following a procedure, superficial incisional surgical site, initial encounter (principal); F17.210 Nicotine dependence, cigarettes, uncomplicated; Z79.899 Other long term (current) drug therapy; Z88.0 Allergy status to penicillin; Z88.1 Allergy status to other antibiotic agents; Z88.8 Allergy status to other drugs, medicaments and biological substances; Y83.8 Other surgical procedures as the cause of abnormal reaction of the patient, or of later complication, without mention of misadventure at the time of the procedure | CPT/HCPCS: 99283 ==

== ENCOUNTER 2024-06-08 19:29 | Emergency (ER) | payer MEDICAID ==
[~2024-06-08 19:29] MED LIST: OLANZapine 5 MG Tab PO SCH
[2024-06-08 20:31] LABS: A/G RATIO 0.9 (1.2-2.2); ALANINE AMINOTRANSFERASE,ALT 59 U/L (12-78); ALBUMIN 3.9 g/dL (3.4-5.0); ALKALINE PHOSPHATASE 179 U/L (46-116); ANION GAP 13.4 mmol/L (5.0-14.0); ASPARTATE AMNIOTRANSFERASE,AST 70 U/L (15-37); BILIRUBIN TOTAL 0.3 mg/dL (0.2-1.0); BLOOD UREA NITROGEN,BUN 10 mg/dL (7-18); CALCIUM 9.7 mg/dL (8.5-10.1); CARBON DIOXIDE,CO2 25 mmol/L (21-32); CHLORIDE,CL 105 mmol/L (100-108); CREATININE 0.8 mg/dL (0.8-1.3); ESTIMATED GFR 112 mL/min (>60); GLUCOSE RANDOM 100 mg/dL (74-106); POTASSIUM,K 3.6 mmol/L (3.6-5.2); PROTEIN TOTAL,TP 8.1 g/dL (6.4-8.2); SODIUM,NA 143 mmol/L (140-148); TSH ULTRASENSITIVE 0.566 uIU/mL (0.358-3.740)
[2024-06-08 22:46] LABS: AMPHETAMINES SCREEN, URINE NEGATIVE (NEGATIVE); BARBITURATE SCREEN,URINE NEGATIVE (NEGATIVE); BENZODIAZEPINES SCREEN,URINE NEGATIVE (NEGATIVE); METHADONE SCREEN, URINE NEGATIVE (NEGATIVE); METHAMPHETAMINES SCREEN, URINE NEGATIVE (NEGATIVE); OXYCODONE SCREEN,URINE NEGATIVE (NEGATIVE); PROPOXYPHENE SCREEN,URINE NEGATIVE (NEGATIVE); THC SCREEN,URINE 50 NG/ML PRESUMPTIVE POSITIVE (NEGATIVE)
[2024-06-08] MEDS ORDERED: OLANZapine 5 MG Tab ONE ×2 (23:33→23:40)
[2024-06-09] MEDS: Ondansetron 4 MG Tab.DIS PO ONE (00:07)
== END 2024-06-09 00:50 | disposition other institution (70) ==
LOC: JP.ED 19:29
DX: F10.10 Alcohol abuse, uncomplicated (principal); F43.22 Adjustment disorder with anxiety; R74.01 Elevation of levels of liver transaminase levels; F17.210 Nicotine dependence, cigarettes, uncomplicated
CPT/HCPCS: 36415; 80053; 80143; 80179; 80305; 80307; 84443; 99284; A9270; Q0162

== ENCOUNTER 2024-07-06 07:56 | Emergency (ER) | payer MEDICAID | END 2024-07-06 08:49 | disposition left against medical advice (07) | LOC: JP.ED 07:56 | DX: Z53.21 Procedure and treatment not carried out due to patient leaving prior to being seen by health care provider (principal) ==

== ENCOUNTER 2025-02-13 13:20 | Emergency (ER) | payer MEDICAID ==
[2025-02-13 14:53] LABS: BASOPHILS ABSOLUTE AUTO 0.10 K/uL (0.00-0.10); BASOPHILS PERCENT AUTO 0.6 % (0.1-1.3); EOSINOPHILS PERCENT AUTO 0.0 % (0.0-5.4); IMMATURE GRAN ABSOLUTE AUTO 0.10 K/uL (0.00-0.23); IMMATURE GRAN PERCENT AUTO 0.6 % (0.0-0.7); LYMPHOCYTES ABSOLUTE AUTO 1.33 K/uL (0.8-3.3); LYMPHOCYTES PERCENT AUTO 7.6 % (11.4-47.7); MONOCYTES ABSOLUTE AUTO 1.16 K/uL (0.20-0.90); MONOCYTES PERCENT AUTO 6.7 % (3.3-12.6); NEUTROPHILS ABSOLUTE AUTO 14.74 K/uL (1.0-7.6); NEUTROPHILS PERCENT AUTO 84.5 % (40.0-78.1); PLATELET COUNT,PLT 346 K/uL (130-375); RED BLOOD CELL COUNT 5.33 M/uL (4.14-5.76); WHITE BLOOD CELL COUNT,WBC 17.4 K/uL (3.2-11.0)
[2025-02-13 14:54] LABS: EOSINOPHILS ABSOLUTE AUTO 0.00 K/uL (0.00-0.40)
[2025-02-13] MEDS: Iopamidol 612 MG/ML 100 ML Bottle IV SCH (15:17)
[2025-02-13] MEDS: fentaNYL 50 MCG/ML SDV IV ONE (15:20)
[2025-02-13] MEDS: Ondansetron 4 MG/2 ML SDV IVPUSH ONE (15:21)
[2025-02-13 15:29] LABS: A/G RATIO 1.1 (1.2-2.2); ALANINE AMINOTRANSFERASE,ALT 31 U/L (12-78); ASPARTATE AMNIOTRANSFERASE,AST 27 U/L (15-37); BILIRUBIN TOTAL 1.5 mg/dL (0.2-1.0); BLOOD UREA NITROGEN,BUN 24 mg/dL (7-18); CARBON DIOXIDE,CO2 23 mmol/L (21-32); CHLORIDE,CL 98 mmol/L (100-108); CREATININE 1.3 mg/dL (0.8-1.3); EST CRCL DRUG DOSING (CG) 74.87 mL/min; ESTIMATED GFR 69 mL/min (>60); GLUCOSE RANDOM 149 mg/dL (74-106); POTASSIUM,K 4.6 mmol/L (3.6-5.2); PROTEIN TOTAL,TP 9.3 g/dL (6.4-8.2); SODIUM,NA 138 mmol/L (140-148)
[2025-02-13 16:10] LABS: APPEARANCE,URINE CLEAR (CLEAR); GLUCOSE,URINE NEGATIVE (NEGATIVE); OCCULT BLOOD,URINE MODERATE (NEGATIVE)
[2025-02-13 16:21] LABS: SQUAMOUS EPITHELIAL CELLS,UR RARE /HPF; UROTHELIAL CELLS,URINE NOT SEEN /HPF
[2025-02-13 16:22] LABS: AMPHETAMINES SCREEN, URINE NEGATIVE (NEGATIVE); METHADONE SCREEN, URINE NEGATIVE (NEGATIVE); METHAMPHETAMINES SCREEN, URINE NEGATIVE (NEGATIVE); OXYCODONE SCREEN,URINE NEGATIVE (NEGATIVE); THC SCREEN,URINE 50 NG/ML NEGATIVE (NEGATIVE)
[2025-02-13 16:23] LABS: PROPOXYPHENE SCREEN,URINE NEGATIVE (NEGATIVE)
[2025-02-13] MEDS: Alum Hydrox/Mag Hydrox/Simeth 15 ML, Lidocaine 2% 15 ML PO ONE (17:38)
== END 2025-02-13 18:30 | disposition home or self-care (01) ==
LOC: JP.ED 13:20
DX: K52.9 Noninfective gastroenteritis and colitis, unspecified (principal); I10 Essential (primary) hypertension; E86.0 Dehydration; F17.200 Nicotine dependence, unspecified, uncomplicated; Z88.0 Allergy status to penicillin; Z88.1 Allergy status to other antibiotic agents; Z88.8 Allergy status to other drugs, medicaments and biological substances; Z79.899 Other long term (current) drug therapy
CPT/HCPCS: 36415; 71046; 74177; 80053; 80305; 81001; 83605; 83690; 85025; 86140; 93005; 96361; 96374; 96375; 99285; J1790; J2405; J3010; J3490; J7030; Q9967; A9270-GY